=== PATIENT | male | born 1980 | race Caucasian/White ===

== ENCOUNTER 2018-02-23 21:20 | Emergency (ER) | payer MEDICAID, OTHER ==
[~2018-02-23] VITALS: Ht 188 cm; Wt 136.1 kg
[2018-02-23 22:22] LABS: Basophils # (auto) 0.1 uL; Basophils % (auto) 0.5 % (0.0-2.0); Eosinophils # (auto) 0.3 uL; Eosinophils % (auto) 2.8 % (0.0-7.0); Hematocrit 39.7 % (41.0-53.0); Hemoglobin 13.2 g/dL (13.5-17.5); Lymphocytes # (auto) 2.2 uL; Lymphocytes % (auto) 22.1 % (10.0-50.0); Mean Corpuscular Hemoglobin 32.3 pg (28.0-32.0); Mean Corpuscular Hgb Conc. 33.2 g/dL (32.0-36.0); Mean Corpuscular Volume 97.4 fL (80.0-100.0); Monocytes # (auto) 0.7 uL; Monocytes % (auto) 7.1 % (0.0-12.0); Neutrophils # (auto) 6.7 uL; Neutrophils % (auto) 67.5 % (37.0-80.0); Nucleated Red Blood Cells % 0.1 %; Platelet Count (auto) 346 10^3/uL (140-450); Red Blood Cells 4.07 10^6/uL (4.5-5.90); Red Cell Distribution Width 14.1 % (11.8-14.3)
[2018-02-23 22:27] LABS: INR 0.95 (0.9-1.15); Partial Thromboplastin Time 27.5 sec (22.64-33.71); Prothrombin Time 10.3 sec (9.37-12.3)
[2018-02-23 22:31] LABS: Albumin 3.5 g/dL (3.4-5.0); BUN/Creatinine Ratio 11.7; Bilirubin, Total 0.2 mg/dL (0.2-1.0); Calcium 8.5 mg/dL (8.5-10.1); Potassium 4.1 mmol/L (3.5-5.1); Total Protein 6.8 g/dL (6.4-8.2)
[2018-02-23] MEDS ORDERED: LORazepam 2MG/ML-1ML VIAL IV ONE (23:15)
[2018-02-23] MEDS ORDERED: LEVETIRACETAM 500 MG TAB PO ONE (23:15)
[2018-02-23 23:42] LABS: Urine Bacteria NONE SEEN /hpf (None Seen); Urine Blood Negative /uL (Negative); Urine Mucus FEW (None Seen); Urine WBC 1 /hpf (0 - 3)
[2018-02-23 23:52] LABS: Amphetamine Screen, Urine NEGATIVE (NEGATIVE); Barbiturate Scree,Urine NEGATIVE (NEGATIVE); Benzodiazephine Screen, Urine POSITIVE (NEGATIVE); Cannabinoid Screen, Urine POSITIVE (NEGATIVE); Cocaine Screen, Urine NEGATIVE (NEGATIVE); Opiate Scree,Urine NEGATIVE (NEGATIVE); Phencyclidine Screen, Urine NEGATIVE (NEGATIVE)
[2018-02-24] MEDS ORDERED: HYDROcodone-ACET 10/325MG TAB PO ONE (00:15)
[2018-02-24 02:25] VITALS: BP 115/74
== END 2018-02-24 03:56 | disposition home or self-care (01) ==
LOC: EDUNIT# 21:20 → ER 21:20
DX: G40.409 Other generalized epilepsy and epileptic syndromes, not intractable, without status epilepticus (principal); G92 Toxic encephalopathy; F43.10 Post-traumatic stress disorder, unspecified; F10.129 Alcohol abuse with intoxication, unspecified; F12.10 Cannabis abuse, uncomplicated; F11.10 Opioid abuse, uncomplicated; Y90.7 Blood alcohol level of 200-239 mg/100 ml
CPT/HCPCS: 36415; 70450; 80053; 80185; 80307; 80320; 81001; 82542; 85025; 85610; 85730; 96374; 99285; J2060

== ENCOUNTER 2019-12-01 10:39 | Emergency (ER) | payer MEDICAID ==
[~2019-12-01] VITALS: Ht 185.4 cm; Wt 99.8 kg
[2019-12-01] MEDS ORDERED: SODIUM CHLORIDE 0.9% 1,000 ML IVB ONE (10:51)
[2019-12-01] MEDS ORDERED: LORazepam 2MG/ML-1ML VIAL IV ONE ×2 (11:00→12:30)
[2019-12-01 11:10] LABS: Basophils # (auto) 0 uL; Basophils % (auto) 0.4 % (0.0-2.0); Eosinophils # (auto) 0.2 uL; Eosinophils % (auto) 1.8 % (0.0-7.0); Hematocrit 44.2 % (41.0-53.0); Hemoglobin 14.9 g/dL (13.5-17.5); Lymphocytes # (auto) 2.1 uL; Lymphocytes % (auto) 24.1 % (10.0-50.0); Mean Corpuscular Hemoglobin 31.9 pg (28.0-32.0); Mean Corpuscular Hgb Conc. 33.7 g/dL (32.0-36.0); Mean Corpuscular Volume 94.6 fL (80.0-100.0); Monocytes # (auto) 0.6 uL; Monocytes % (auto) 6.4 % (0.0-12.0); Neutrophils # (auto) 5.8 uL; Neutrophils % (auto) 67.3 % (37.0-80.0); Platelet Count (auto) 294 10^3/uL (140-450); Red Blood Cells 4.67 10^6/uL (4.5-5.90); Red Cell Distribution Width 13.8 % (11.8-14.3); White Blood Cell 8.6 10^3/uL (4.4-10.8)
[2019-12-01 11:28] LABS: Albumin 3.4 g/dL (3.4-5.0); Calcium 8.6 mg/dL (8.5-10.1); Potassium 3.3 mmol/L (3.5-5.1)
[2019-12-01 11:32] VITALS: BP 139/94
[2019-12-01 11:32] LABS: BUN/Creatinine Ratio 9.2; Bilirubin, Total 0.2 mg/dL (0.2-1.0); Total Protein 7.3 g/dL (6.4-8.2)
[2019-12-01] MEDS ORDERED: diphenhdrAMINE HCL 50 MG/1 ML VL IM ONE (12:15)
[2019-12-01] MEDS ORDERED: LORazepam 2MG/ML-1ML VIAL IM ONE (12:15)
[2019-12-01] MEDS ORDERED: HALOPERIDOL LACTATE 5 MG/ML INJ VIAL IM ONE (12:15)
[2019-12-01] MEDS ORDERED: diphenhdrAMINE HCL 50 MG/1 ML VL IV ONE (12:30)
[2019-12-01 13:55] LABS: Amphetamine Screen, Urine NEGATIVE (NEGATIVE); Barbiturate Scree,Urine NEGATIVE (NEGATIVE); Benzodiazephine Screen, Urine POSITIVE (NEGATIVE); Cannabinoid Screen, Urine POSITIVE (NEGATIVE); Cocaine Screen, Urine NEGATIVE (NEGATIVE)
[2019-12-01 14:05] LABS: Opiate Scree,Urine NEGATIVE (NEGATIVE); Phencyclidine Screen, Urine NEGATIVE (NEGATIVE)
== END 2019-12-02 03:10 | disposition home or self-care (01) ==
LOC: EDBD 10:39 → ER 10:39
DX: F31.9 Bipolar disorder, unspecified (principal); F10.129 Alcohol abuse with intoxication, unspecified; R45.851 Suicidal ideations; Y90.8 Blood alcohol level of 240 mg/100 ml or more
CPT/HCPCS: 36415; 80053; 80307; 80320; 85025; 93005; 96372; 96374; 96375; 99284; J1200; J1630; J2060

== ENCOUNTER 2020-02-22 18:35 | Inpatient (IN) | payer MEDICARE, MEDICAID ==
[~2020-02-22] VITALS: Ht 182.9 cm; Wt 102.6 kg
[2020-02-22 21:43] LABS: Basophils # (auto) 0 10 ^3/uL (0-0.2); Basophils % (auto) 0.3 % (0.0-2.0); Eosinophils # (auto) 0.2 10 ^3/uL (0-0.8); Eosinophils % (auto) 2.8 % (0.0-7.0); Hematocrit 41.8 % (41.0-53.0); Lymphocytes # (auto) 2.1 10 ^3/uL (0.4-5.4); Lymphocytes % (auto) 24.9 % (10.0-50.0); Mean Corpuscular Hemoglobin 32.3 pg (28.0-32.0); Mean Corpuscular Hgb Conc. 33.6 g/dL (32.0-36.0); Mean Corpuscular Volume 96.3 fL (80.0-100.0); Monocytes # (auto) 0.7 10 ^3/uL (0-1.3); Monocytes % (auto) 7.8 % (0.0-12.0); Neutrophils # (auto) 5.4 10 ^3/uL (1.6-8.6); Neutrophils % (auto) 64.2 % (37.0-80.0); Platelet Count (auto) 303 10^3/uL (140-450); Red Blood Cells 4.34 10^6/uL (4.5-5.90); Red Cell Distribution Width 13.4 % (11.8-14.3); White Blood Cell 8.4 10^3/uL (4.4-10.8)
[2020-02-22] MEDS ORDERED: AZITHROMYCIN 500MG/ 250ML 250 ML IV ONE (21:45)
[2020-02-22 22:00] LABS: Potassium 3.3 mmol/L (3.5-5.1)
[2020-02-22 22:07] LABS: Albumin 3.7 g/dL (3.4-5.0); Bilirubin, Total 1.2 mg/dL (0.2-1.0); Calcium 8.2 mg/dL (8.5-10.1); Total Protein 7.3 g/dL (6.4-8.2)
[2020-02-23] MEDS ORDERED: ALBUTEROL SULF 2.5 MG/0.5ML(0.5%) NEB SOLN NEB PRN (00:45)
[2020-02-23] MEDS ORDERED: TEMAZEPAM 15 MG CAP PO PRN (00:45)
[2020-02-23] MEDS ORDERED: ONDANSETRON HCL 4 MG/2 ML VIAL IV PRN (00:45)
[2020-02-23] MEDS ORDERED: ACETAMINOPHEN 325 MG TAB PO PRN (00:45)
[2020-02-23 02:02] VITALS: BP 114/73
--- NOTE | 2020-02-23 03:05 | NUR ---
MS admit from ER TAMIA PLATT admitted to tele/MS and oriented to primary RN, unit, room, bed, and unit policies regarding patient care and visiting hours. Patient placed on 4 l/min NC. Respiratory precautions in place. Patient weighed by bedscale and encouraged to call if they need something. All questions and concerns addressed, patient verbalized understanding.
[2020-02-23] MEDS ORDERED: LEVE100012 PO (03:26)
[2020-02-23] MEDS ORDERED: ATEN-60 PO (03:31)
[2020-02-23] MEDS ORDERED: GABA300C10 (03:31)
[2020-02-23] MEDS ORDERED: OLAN20TA30 (03:31)
[2020-02-23] MEDS ORDERED: LOSA-69 (03:31)
[2020-02-23] MEDS ORDERED: VENL37.56 (03:31)
[2020-02-23 03:33] VITALS: BP 116/72
[2020-02-23 04:00] VITALS: BP 116/72
--- NOTE | 2020-02-23 07:10 | NUR ---
Opening Shift Note Assumed care of patient, awake and alert. S/S of distress/SOB NO C/O pain RT MADE AWARE. Insructed on POC and to callfor assist PRN, will continue to monitor for changes Q1hr and PRN.
[2020-02-23] MEDS: GABAPENTIN 300 MG CAP PO SCH ×2 (09:05→20:58)
[2020-02-23] MEDS: AZITHROMYCIN 500MG/ 250ML 250 ML IV SCH (09:05)
[2020-02-23] MEDS: levETIRAcetam 500 MG TAB PO SCH ×2 (09:07→20:58)
[2020-02-23 09:23] VITALS: BP 132/81
[2020-02-23] MEDS ORDERED: ASCORBIC ACID 500 MG TAB PO SCH (10:00)
[2020-02-23] MEDS ORDERED: VENLAFAXINE HCL 37.5MG TABLET PO SCH (10:00)
[2020-02-23] MEDS ORDERED: ZINC SULFATE 220mg CAP or TAB PO SCH (10:00)
[2020-02-23] MEDS: ASCORBIC ACID 500 MG TAB PO SCH ×2 (10:30→20:59)
[2020-02-23] MEDS: LORazepam 2MG/ML-1ML VIAL IV PRN (11:15)
--- NOTE | 2020-02-23 11:17 | NUR ---
ATIVAN GIVEN ORDERED PT FEELS HES HAVING A PANIC ATTACK WILL REASSESS . URINE SAMPLE OBTAINED SENT TO LAB
[2020-02-23 11:34] LABS: Urine Bacteria NONE SEEN /hpf (None Seen); Urine Blood Negative /uL (Negative); Urine Mucus FEW (None Seen); Urine Specific Gravity 1.033 (1.001-1.035); Urine WBC 1 /hpf (0 - 3)
[2020-02-23 11:48] LABS: Alcohol, Urine < 3.0 mg/dL (0-5); Barbiturate Scree,Urine NEGATIVE (NEGATIVE); Benzodiazephine Screen, Urine NEGATIVE (NEGATIVE); Cannabinoid Screen, Urine POSITIVE (NEGATIVE); Cocaine Screen, Urine NEGATIVE (NEGATIVE); Opiate Scree,Urine NEGATIVE (NEGATIVE); Phencyclidine Screen, Urine NEGATIVE (NEGATIVE)
[2020-02-23 11:55] LABS: Amphetamine Screen, Urine NEGATIVE (NEGATIVE)
[2020-02-23 12:14] VITALS: BP 132/84
--- NOTE | 2020-02-23 12:16 | NUR ---
pt feels much better and less anxious pt on room air sat 98%
[2020-02-23] MEDS: SODIUM CHLORIDE 0.9% 1,000 ML IV SCH (12:30)
[2020-02-23] MEDS ORDERED: ENOXAPARIN SOD 40 MG/0.4 ML SYRINGE SC ONE (14:00)
--- NOTE | 2020-02-23 14:20 | NUR ---
MD at bedside Updated pt on POC, patient questions answered at this time. Per MD, patient agrees to have labs drawn at this time. Will proceed to call to notify laborer wharf.
[2020-02-23] MEDS: ALBUTEROL SULF HFA 90MCG INH 200DOSE IN SCH ×2 (14:35→22:08)
[2020-02-23 15:20] LABS: Basophils # (auto) 0 10 ^3/uL (0-0.2); Basophils % (auto) 0.2 % (0.0-2.0); Eosinophils # (auto) 0.3 10 ^3/uL (0-0.8); Eosinophils % (auto) 2.1 % (0.0-7.0); Hematocrit 38.8 % (41.0-53.0); Lymphocytes # (auto) 1.8 10 ^3/uL (0.4-5.4); Lymphocytes % (auto) 14.4 % (10.0-50.0); Mean Corpuscular Hemoglobin 32.2 pg (28.0-32.0); Mean Corpuscular Hgb Conc. 33.7 g/dL (32.0-36.0); Mean Corpuscular Volume 95.6 fL (80.0-100.0); Monocytes # (auto) 1.3 10 ^3/uL (0-1.3); Monocytes % (auto) 10.8 % (0.0-12.0); Neutrophils # (auto) 8.9 10 ^3/uL (1.6-8.6); Neutrophils % (auto) 72.5 % (37.0-80.0); Nucleated Red Blood Cells % 0.1 %; Platelet Count (auto) 268 10^3/uL (140-450); Red Blood Cells 4.05 10^6/uL (4.5-5.90); Red Cell Distribution Width 13.1 % (11.8-14.3); White Blood Cell 12.3 10^3/uL (4.4-10.8)
[2020-02-23 15:33] LABS: Albumin 3.4 g/dL (3.4-5.0); Calcium 8.5 mg/dL (8.5-10.1); Magnesium 1.5 mg/dL (1.6-2.6); Potassium 3.3 mmol/L (3.5-5.1)
[2020-02-23 15:37] LABS: BUN/Creatinine Ratio 15.2; Bilirubin, Total 1.9 mg/dL (0.2-1.0); CRP High Sensitivity 0.23 mg/dL (< 0.3); Total Protein 6.5 g/dL (6.4-8.2)
[2020-02-23] MEDS ORDERED: MAGNESIUM SULFATE 1GM/100ML 100 ML IV SCH (16:00)
[2020-02-23] MEDS ORDERED: POTASSIUM CHLORIDE 60 MEQ, LIDOCAINE 1% (LOCAL ANESTH.) 6 ML in SODIUM CHL 0.9% 500 ML IV ONE (16:00)
[2020-02-23] MEDS ORDERED: POTASSIUM CHL 20 Meq TABLET PO ONE (16:30)
[2020-02-23 16:51] VITALS: BP 132/74
--- NOTE | 2020-02-23 19:00 | NUR ---
Opening Shift Note Assumed care of patient, awake and alert. No S/S of distress/SOB or pain. Instructed on POC and to call for assist PRN, will continue to monitor for changes Q1hr and PRN.
--- NOTE | 2020-02-23 20:15 | NUR ---
2200 Medications. Patient requested his 2200 medications at this time for RN to limit his contact with the patient.
[2020-02-23] MEDS: MAGNESIUM OXIDE 400 MG TAB PO SCH (20:58)
[2020-02-23] MEDS: ZINC SULFATE 220mg CAP or TAB PO SCH (20:58)
--- NOTE | 2020-02-23 21:10 | NUR ---
COVID RESULTS FOLLOW UP: RN called lab to follow up on COVID-19 results. Per lab, they are still waiting for results at this time. computer service technician informed RN the results are usually faxed over in the morning. RN will continue to follow up.
[2020-02-23] MEDS ORDERED: MAGNESIUM OXIDE 400 MG TAB PO SCH (22:00)
[2020-02-24] MEDS: SODIUM CHLORIDE 0.9% 1,000 ML IV SCH (01:50)
[2020-02-24 06:14] VITALS: BP 125/82
[2020-02-24 06:56] LABS: Basophils # (auto) 0 10 ^3/uL (0-0.2); Basophils % (auto) 0.3 % (0.0-2.0); Eosinophils # (auto) 0.5 10 ^3/uL (0-0.8); Eosinophils % (auto) 3.2 % (0.0-7.0); Hemoglobin 12.7 g/dL (13.5-17.5); Lymphocytes # (auto) 1.9 10 ^3/uL (0.4-5.4); Lymphocytes % (auto) 13.3 % (10.0-50.0); Mean Corpuscular Hemoglobin 32.5 pg (28.0-32.0); Mean Corpuscular Hgb Conc. 33.4 g/dL (32.0-36.0); Mean Corpuscular Volume 97.3 fL (80.0-100.0); Monocytes % (auto) 6.8 % (0.0-12.0); Neutrophils # (auto) 10.9 10 ^3/uL (1.6-8.6); Neutrophils % (auto) 76.4 % (37.0-80.0); Platelet Count (auto) 237 10^3/uL (140-450); Red Blood Cells 3.91 10^6/uL (4.5-5.90); Red Cell Distribution Width 13.6 % (11.8-14.3); White Blood Cell 14.3 10^3/uL (4.4-10.8)
--- NOTE | 2020-02-24 07:30 | NUR ---
Opening Shift Note Assumed care of patient, awake and alert. No S/S of distress/SOB or pain. Bed in lowest and locked position with side rails up x2 and call light within reach. Instructed on POC and to call for assist PRN, will continue to monitor for changes Q1hr and PRN.
[2020-02-24 07:45] LABS: Potassium 4.2 mmol/L (3.5-5.1)
[2020-02-24 07:46] LABS: BUN/Creatinine Ratio 14.1
[2020-02-24 07:47] LABS: Albumin 3.2 g/dL (3.4-5.0); Bilirubin, Total 1.7 mg/dL (0.2-1.0); Calcium 8.3 mg/dL (8.5-10.1); Total Protein 6.4 g/dL (6.4-8.2)
[2020-02-24 08:00] VITALS: BP 122/77
[2020-02-24] MEDS: ALBUTEROL SULF HFA 90MCG INH 200DOSE IN SCH ×4 (08:22→23:00)
--- NOTE | 2020-02-24 08:22 | NUR ---
Respiratory note: BREATHING TX ADMINISTERED VIA MDI WITH SPACER, PT TOLERATED WELL, NO ADVERSE REACTIONS NOTED. HR 98, RR 18, SPO2 98% ON 3LPM NC. NO S/S OF RESPIRATORY DISTRESS NOTED. WILL RETURN FOR NEXT SCHEDULED TX.
[2020-02-24] MEDS: AZITHROMYCIN 500MG/ 250ML 250 ML IV SCH (09:16)
[2020-02-24 09:20] VITALS: BP 122/77
[2020-02-24] MEDS: ZINC SULFATE 220mg CAP or TAB PO SCH (09:23)
[2020-02-24] MEDS: levETIRAcetam 500 MG TAB PO SCH ×2 (09:24→21:21)
[2020-02-24] MEDS: GABAPENTIN 300 MG CAP PO SCH ×2 (09:24→21:21)
[2020-02-24] MEDS: MAGNESIUM OXIDE 400 MG TAB PO SCH ×2 (09:24→21:19)
[2020-02-24] MEDS: ENOXAPARIN SOD 40 MG/0.4 ML SYRINGE SC SCH (09:25)
[2020-02-24] MEDS: LORazepam 2MG/ML-1ML VIAL IV PRN (09:25)
[2020-02-24] MEDS: ASCORBIC ACID 500 MG TAB PO SCH (09:25)
--- NOTE | 2020-02-24 11:00 | NUR ---
SPOKE TO SPECIAL EVENTS PLANNER, PEDRITO, AND KAYLIN. PER PEDRITO AND KAYLIN, THE PATIENTS COVID-19 TEST IS NEGATIVE.
--- NOTE | 2020-02-24 11:17 | NUR ---
RECEIVED PATIENT FROM MARIAA HUBER AFTER NEGATIVE COVID19 RESULTS. PATIENT ORIENTED TO NEW ROOM 0284B AND PRIMARY RN ADEOLA ARTEAGA. PATIENT UDPATED ON POC FOR THE DAY AND ALL QUESTIONS ANSWERED. WILL CONTINUE TO MONITOR Q1H AND PRN.
--- NOTE | 2020-02-24 11:19 | NUR ---
REPORT GIVEN TO RNADEOLA.
[2020-02-24] MEDS ORDERED: IOHEXOL 350 MG/ML 100ML IJ ONE (11:38)
[2020-02-24 13:00] VITALS: BP 129/75
[2020-02-24 16:48] VITALS: BP 149/95
--- NOTE | 2020-02-24 19:30 | NUR ---
Opening Shift Note Assumed care of patient, awake and alert, ambulatory. No S/S of distress/SOB or pain. Bed in lowest and locked position with side rails up x2 and call light within reach. Instructed on POC and to call for assist PRN, will continue to monitor for changes Q1hr and PRN.
[2020-02-24 22:00] VITALS: BP 134/97
--- NOTE | 2020-02-24 23:05 | NUR ---
Respiratory note: PT PLACED ON CPAP. UNAVAILABLE FOR MED NEB ADMINISTRATION AT SCHEDULED TIME. PT PRESENTING NO RESPIRATORY DISTRESS AT THIS TIME. PT AWARE TO HAVE RT PAGED IF NEEDED, WILL CONTINUE TO MONITOR.
[2020-02-25 05:41] VITALS: BP 122/81
[2020-02-25] MEDS: ALBUTEROL SULF HFA 90MCG INH 200DOSE IN SCH (06:00)
[2020-02-25 08:00] VITALS: BP 126/84
[2020-02-25 09:00] VITALS: BP 126/84
[2020-02-25] MEDS: levETIRAcetam 500 MG TAB PO SCH (09:46)
[2020-02-25] MEDS: ENOXAPARIN SOD 40 MG/0.4 ML SYRINGE SC SCH (09:46)
[2020-02-25] MEDS: MAGNESIUM OXIDE 400 MG TAB PO SCH (09:46)
[2020-02-25] MEDS: GABAPENTIN 300 MG CAP PO SCH (09:47)
[2020-02-25] MEDS ORDERED: AZITHROMYCIN 250 MG TAB PO SCH (10:00)
[2020-02-25 11:34] VITALS: BP 126/84
--- NOTE | 2020-02-25 14:10 | NUR ---
assessment Patient is a 39 year old male who is alert and oriented. Prior to admission patient lived home with his and family and functioned with assistance. Per patient he will return home to his prior living arrangements post discharge and family will transport him home. Patient had no need for DME prior to admission. Patient is positive for Covid 19 and may require oxygen on discharge. Patients PCP is Dr Lucia. Patient has no safety concerns regarding returning home on discharge. I informed patient he has a right to speak to a social service manager regarding all care. I informed patient he has a right to participate in any and all discharge planning. Patient does not have a POA and advanced directive. I have offered patient information on POA and advanced directives. I informed the patient the advantages and benefits of having an Advanced Directive. Patient verbalized understanding and agreed to discharge plan. Addendum: 02/25/20 at 1412 by Bettye COX Amended: Links added.
== END 2020-02-25 14:00 | disposition home or self-care (01) | DRG 189 ==
LOC: ER 18:35 → OVERFLOW 18:36 → WEST WING 02-23 02:58
PROVIDERS: ADMIT Nurse Practitioner; ATTEND Internal Medicine
PROC: 5A09357 Assistance with Respiratory Ventilation, Less than 24 Consecutive Hours, Continuous Positive Airway Pressure (ICD-10-PCS; principal; 2020-02-24)
DX: J96.01 Acute respiratory failure with hypoxia (principal); F31.9 Bipolar disorder, unspecified; E66.9 Obesity, unspecified; E87.6 Hypokalemia; E83.42 Hypomagnesemia; F41.9 Anxiety disorder, unspecified; F17.210 Nicotine dependence, cigarettes, uncomplicated; I10 Essential (primary) hypertension; Z03.818 Encounter for observation for suspected exposure to other biological agents ruled out; Z68.30 Body mass index [BMI] 30.0-30.9, adult; Z88.0 Allergy status to penicillin
CPT/HCPCS: 36415; 36600; 71046; 71275; 80053; 80307; 81001; 82728; 82805; 82962; 83036; 83605; 83615; 83735; 84443; 84484; 85025; 85379; 85610; 85652; 86141; 86703; 87040; 87070; 87804; 87880; 93005; 94640; 94660; 96365; 96366; 96375; G0378; J2001

== ENCOUNTER 2020-02-25 23:15 | Emergency (ER) | payer MEDICARE, MEDICAID ==
[~2020-02-25] VITALS: Ht 188 cm; Wt 145.1 kg
[~2020-02-25 23:15] MED LIST: ATEN-60 PO; GABA300C10; LEVE100012 PO; LOSA-69; OLAN20TA30; VENL37.56
[2020-02-25] MEDS ORDERED: LORazepam 2MG/ML-1ML VIAL ONE (23:38)
[2020-02-25] MEDS ORDERED: LORazepam 2MG/ML-1ML VIAL IV ONE (23:45)
[2020-02-26 00:10] LABS: Urine Bacteria NONE SEEN /hpf (None Seen); Urine Blood Negative /uL (Negative); Urine Specific Gravity 1.005 (1.001-1.035); Urine WBC 1 /hpf (0 - 3)
[2020-02-26] MEDS ORDERED: HALOPERIDOL LACTATE 5 MG/ML INJ VIAL ONE (00:18)
[2020-02-26] MEDS ORDERED: diphenhdrAMINE HCL 50 MG/1 ML VL ONE (00:18)
[2020-02-26 00:24] LABS: Basophils # (auto) 0 10 ^3/uL (0-0.2); Basophils % (auto) 0.2 % (0.0-2.0); Eosinophils # (auto) 0.3 10 ^3/uL (0-0.8); Eosinophils % (auto) 3.6 % (0.0-7.0); Hematocrit 43.4 % (41.0-53.0); Hemoglobin 14.6 g/dL (13.5-17.5); Lymphocytes # (auto) 2.1 10 ^3/uL (0.4-5.4); Lymphocytes % (auto) 24.6 % (10.0-50.0); Mean Corpuscular Hemoglobin 32.6 pg (28.0-32.0); Mean Corpuscular Hgb Conc. 33.7 g/dL (32.0-36.0); Mean Corpuscular Volume 96.9 fL (80.0-100.0); Monocytes # (auto) 0.7 10 ^3/uL (0-1.3); Monocytes % (auto) 8.1 % (0.0-12.0); Neutrophils # (auto) 5.5 10 ^3/uL (1.6-8.6); Neutrophils % (auto) 63.5 % (37.0-80.0); Nucleated Red Blood Cells % 0.1 %; Platelet Count (auto) 273 10^3/uL (140-450); Red Blood Cells 4.47 10^6/uL (4.5-5.90); Red Cell Distribution Width 13.3 % (11.8-14.3); White Blood Cell 8.6 10^3/uL (4.4-10.8)
[2020-02-26 00:30] LABS: Amphetamine Screen, Urine NEGATIVE (NEGATIVE); Barbiturate Scree,Urine NEGATIVE (NEGATIVE); Benzodiazephine Screen, Urine NEGATIVE (NEGATIVE); Cannabinoid Screen, Urine POSITIVE (NEGATIVE); Cocaine Screen, Urine NEGATIVE (NEGATIVE); Opiate Scree,Urine NEGATIVE (NEGATIVE); Phencyclidine Screen, Urine NEGATIVE (NEGATIVE)
[2020-02-26] MEDS ORDERED: HALOPERIDOL LACTATE 5 MG/ML INJ VIAL IM ONE (00:30)
[2020-02-26] MEDS ORDERED: LORazepam 2MG/ML-1ML VIAL IV ONE (00:30)
[2020-02-26] MEDS ORDERED: diphenhdrAMINE HCL 50 MG/1 ML VL IV ONE (00:30)
[2020-02-26 00:40] LABS: Albumin 3.8 g/dL (3.4-5.0); Calcium 9.1 mg/dL (8.5-10.1); Potassium 3.6 mmol/L (3.5-5.1)
[2020-02-26 00:43] LABS: Bilirubin, Total 0.4 mg/dL (0.2-1.0); Total Protein 8.1 g/dL (6.4-8.2)
[2020-02-26 00:44] LABS: INR 0.98 (0.9-1.15); Partial Thromboplastin Time 30.2 sec (23.64-32.05)
[2020-02-26] MEDS ORDERED: SODIUM CHLORIDE 0.9% 1,000 ML IV ONE (01:15)
[2020-02-26] MEDS ORDERED: THIAMINE INJ 100 MG in SODIUM CHLORIDE 0.9% 1,000 ML IV ONE (01:15)
[2020-02-26] MEDS ORDERED: levETIRAcetam 500 MG/5ML INJ IV ONE (03:13)
[2020-02-26] MEDS ORDERED: THIAMINE 100mg/ml INJ (200mg/2ml VIAL) ONE (03:13)
[2020-02-26 05:30] VITALS: BP 102/63
== END 2020-02-26 06:25 | disposition home or self-care (01) ==
LOC: EDBD 23:15 → ER 23:15
DX: G40.909 Epilepsy, unspecified, not intractable, without status epilepticus (principal); F60.9 Personality disorder, unspecified; F10.129 Alcohol abuse with intoxication, unspecified; F17.210 Nicotine dependence, cigarettes, uncomplicated; I10 Essential (primary) hypertension; Y90.9 Presence of alcohol in blood, level not specified
CPT/HCPCS: 36415; 80053; 80307; 80320; 81001; 85025; 85610; 85730; 96365; 96368; 96372; 96375; 96376; 99285; J1200; J1630; J1953; J2060; J3411; J7030

== ENCOUNTER 2020-04-22 16:11 | Inpatient (IN) | payer MEDICARE, MEDICAID ==
[~2020-04-22] VITALS: Ht 182.9 cm; Wt 124.0 kg
[2020-04-22] MEDS ORDERED: LORazepam 2MG/ML-1ML VIAL ONE (16:25)
[2020-04-22] MEDS ORDERED: SODIUM CHLORIDE 0.9% 1,000 ML IV ONE ×3 (16:30→18:17)
[2020-04-22] MEDS ORDERED: LORazepam 2MG/ML-1ML VIAL IV ONE (16:30)
[2020-04-22 16:54] LABS: Basophils # (auto) 0 10 ^3/uL (0-0.2); Basophils % (auto) 0.3 % (0.0-2.0); Eosinophils # (auto) 0.1 10 ^3/uL (0-0.8); Eosinophils % (auto) 0.5 % (0.0-7.0); Hematocrit 39.2 % (41.0-53.0); Hemoglobin 13.2 g/dL (13.5-17.5); Lymphocytes # (auto) 1.5 10 ^3/uL (0.4-5.4); Lymphocytes % (auto) 13.7 % (10.0-50.0); Mean Corpuscular Hgb Conc. 33.7 g/dL (32.0-36.0); Monocytes # (auto) 1.1 10 ^3/uL (0-1.3); Monocytes % (auto) 10.7 % (0.0-12.0); Neutrophils % (auto) 74.8 % (37.0-80.0); Platelet Count (auto) 225 10^3/uL (140-450); White Blood Cell 10.7 10^3/uL (4.4-10.8)
[2020-04-22 16:54] LABS: Urine Amorphous Crystal FEW /hpf (None Seen); Urine Bacteria NONE SEEN /hpf (None Seen); Urine Blood Negative /uL (Negative); Urine Hyaline Cast FEW /lpf (0 - 2); Urine Specific Gravity 1.011 (1.001-1.035); Urine WBC 1 /hpf (0 - 3)
[2020-04-22 17:10] LABS: Albumin 3.3 g/dL (3.4-5.0); Anion Gap 15 (5-15); Blood Urea Nitrogen 15 mg/dL (7-18); Calcium 7.9 mg/dL (8.5-10.1); Carbon Dioxide 18 mmol/L (21-32); Chloride 109 mmol/L (98-107); Glucose 87 mg/dL (74-106); Magnesium 1.8 mg/dL (1.6-2.6); Salicylate < 1.7 mg/dL (2.8-20.0); Sodium 142 mmol/L (136-145)
[2020-04-22 17:12] LABS: Amphetamine Screen, Urine NEGATIVE (NEGATIVE); Barbiturate Scree,Urine NEGATIVE (NEGATIVE); Benzodiazephine Screen, Urine NEGATIVE (NEGATIVE); Cannabinoid Screen, Urine POSITIVE (NEGATIVE); Cocaine Screen, Urine NEGATIVE (NEGATIVE); Opiate Scree,Urine NEGATIVE (NEGATIVE); Phencyclidine Screen, Urine NEGATIVE (NEGATIVE)
[2020-04-22 17:14] LABS: Acetaminophen < 2.0 ug/mL (10-30)
[2020-04-22 17:15] LABS: Alanine Aminotransferase 26 U/L (16-61); Alkaline Phosphatase 96 U/L (45-117); Aspartate Aminotransferase 39 U/L (15-37); BUN/Creatinine Ratio 11.4; Bilirubin, Total 0.7 mg/dL (0.2-1.0); GFR African American 78 mL/min; GFR Non-African American 64 mL/min; Total Protein 6.6 g/dL (6.4-8.2)
[2020-04-22] MEDS ORDERED: THIAMINE 100mg/ml INJ (200mg/2ml VIAL) IV ONE ×2 (18:00→19:15)
[2020-04-22] MEDS ORDERED: SODIUM CHLORIDE 0.9% 2,000 ML IV ONE ×2 (18:00→18:30)
[2020-04-22] MEDS ORDERED: POTASSIUM CHL 20MEQ/100ML 100 ML IV ONE (18:00)
[2020-04-22] MEDS ORDERED: NOREPINEPHRINE 8 MG/250ML KIT 250 ML IV SCH (18:30)
[2020-04-22] MEDS ORDERED: ACETAMINOPHEN 500 MG TAB PO PRN (19:15)
[2020-04-22] MEDS ORDERED: MORPHINE SULF INJ 2 MG/ML SYRINGE 1ML IV PRN (19:15)
[2020-04-22] MEDS ORDERED: PROMETHAZINE HCL 25 MG/ML 1ML IV PRN (19:15)
[2020-04-22] MEDS ORDERED: LACTULOSE 20Gm/30ML SOLN PO PRN (19:15)
[2020-04-22] MEDS ORDERED: OLANZapine 5 MG TAB PO ONE (19:15)
[2020-04-22] MEDS ORDERED: NITROGLYCERIN 0.4 MG SL TAB SL PRN (19:15)
[2020-04-22] MEDS ORDERED: chlordiazePOXIDE HCL 25 MG CAP PO PRN (19:15)
[2020-04-22] MEDS ORDERED: LORazepam 2MG/ML-1ML VIAL IV PRN (19:15)
[2020-04-22] MEDS ORDERED: LORazepam 2MG/ML-1ML VIAL IM ONE (19:30)
[2020-04-22] MEDS: GABAPENTIN 300 MG CAP PO SCH (20:26)
[2020-04-22] MEDS: VENLAFAXINE HCL 37.5MG TABLET PO SCH (21:09)
[2020-04-22] MEDS: levETIRAcetam 500 MG TAB PO SCH (21:09)
[2020-04-22] MEDS ORDERED: POTASSIUM EFFERVESENT TAB 25 MEQ ONE (21:59)
[2020-04-22] MEDS ORDERED: POTASSIUM EFFERVESENT TAB 25 MEQ PO ONE (22:00)
[2020-04-22 22:54] VITALS: BP 127/86
[2020-04-23] VITALS (7 sets, daily range): BP systolic 102–153; BP diastolic 53–104
[2020-04-23 04:34] LABS: Basophils # (auto) 0 10 ^3/uL (0-0.2); Basophils % (auto) 0.2 % (0.0-2.0); Eosinophils # (auto) 0.1 10 ^3/uL (0-0.8); Eosinophils % (auto) 0.6 % (0.0-7.0); Hematocrit 37.2 % (41.0-53.0); Hemoglobin 12.3 g/dL (13.5-17.5); Lymphocytes # (auto) 1.1 10 ^3/uL (0.4-5.4); Mean Corpuscular Hemoglobin 33.1 pg (28.0-32.0); Mean Corpuscular Hgb Conc. 33.2 g/dL (32.0-36.0); Mean Corpuscular Volume 99.8 fL (80.0-100.0); Monocytes # (auto) 1.2 10 ^3/uL (0-1.3); Monocytes % (auto) 12.5 % (0.0-12.0); Neutrophils # (auto) 7.5 10 ^3/uL (1.6-8.6); Neutrophils % (auto) 75.7 % (37.0-80.0); Nucleated Red Blood Cells % 0.1 %; Platelet Count (auto) 176 10^3/uL (140-450); Red Blood Cells 3.73 10^6/uL (4.5-5.90); Red Cell Distribution Width 14.4 % (11.8-14.3); White Blood Cell 9.9 10^3/uL (4.4-10.8)
[2020-04-23 04:59] LABS: Calcium 7.1 mg/dL (8.5-10.1); Potassium 4.1 mmol/L (3.5-5.1)
[2020-04-23 05:01] LABS: BUN/Creatinine Ratio 11.1
[2020-04-23] MEDS: chlordiazePOXIDE HCL 5 MG CAP PO SCH ×4 (06:50→17:45)
[2020-04-23] MEDS ORDERED: MAGNESIUM SULFATE 1GM/100ML 100 ML IV ONE ×2 (10:54→11:00)
[2020-04-23] MEDS: THIAMINE 100mg/ml INJ (200mg/2ml VIAL) IV SCH (11:01)
[2020-04-23] MEDS: levETIRAcetam 500 MG TAB PO SCH ×2 (11:01→21:26)
[2020-04-23] MEDS: GABAPENTIN 300 MG CAP PO SCH ×2 (11:01→21:27)
[2020-04-23] MEDS: OLANZapine 5 MG TAB PO SCH (11:02)
[2020-04-23] MEDS: ENOXAPARIN SOD 40 MG/0.4 ML SYRINGE SC SCH (11:02)
[2020-04-23] MEDS: VENLAFAXINE HCL 37.5MG TABLET PO SCH ×2 (11:15→21:26)
[2020-04-23] MEDS ORDERED: levoFLOXacin 500MG 100 ML IV ONE (12:45)
[2020-04-23] MEDS: SODIUM CHLORIDE 0.9% 1,000 ML IV SCH (13:32)
[2020-04-23] MEDS: traMADol HCL 50 MG TAB PO PRN ×2 (13:42→21:26)
[2020-04-23] MEDS ORDERED: LABETALOL HCL 5 MG/ML 4ML SYRINGE IV PRN (18:15)
[2020-04-24] MEDS: SODIUM CHLORIDE 0.9% 1,000 ML IV SCH ×2 (03:35→15:25)
[2020-04-24 05:00] VITALS: BP 150/88
[2020-04-24] MEDS: chlordiazePOXIDE HCL 5 MG CAP PO SCH ×5 (05:22→23:12)
[2020-04-24 08:32] VITALS: BP 146/103
[2020-04-24] MEDS: GABAPENTIN 300 MG CAP PO SCH ×2 (10:09→23:11)
[2020-04-24] MEDS: VENLAFAXINE HCL 37.5MG TABLET PO SCH ×2 (10:09→23:10)
[2020-04-24] MEDS: OLANZapine 5 MG TAB PO SCH (10:09)
[2020-04-24] MEDS: ENOXAPARIN SOD 40 MG/0.4 ML SYRINGE SC SCH (10:09)
[2020-04-24] MEDS: METOPROLOL TARTRATE 25 MG TAB PO SCH ×2 (10:09→23:11)
[2020-04-24] MEDS: levoFLOXacin 500MG 100 ML IV SCH (10:10)
[2020-04-24] MEDS: levETIRAcetam 500 MG TAB PO SCH ×2 (10:10→23:10)
[2020-04-24] MEDS ORDERED: IOHEXOL 350 MG/ML 100ML IJ ONE ×2 (10:25→12:18)
[2020-04-24] MEDS: THIAMINE 100mg/ml INJ (200mg/2ml VIAL) IV SCH (10:28)
[2020-04-24 11:37] LABS: Albumin 2.7 g/dL (3.4-5.0); Potassium 3.5 mmol/L (3.5-5.1)
[2020-04-24 11:42] LABS: BUN/Creatinine Ratio 11.4; Bilirubin, Total 0.9 mg/dL (0.2-1.0); Total Protein 6.1 g/dL (6.4-8.2)
[2020-04-24 13:00] VITALS: BP 158/109
[2020-04-24 17:11] VITALS: BP 160/109
[2020-04-24] MEDS: traMADol HCL 50 MG TAB PO PRN (20:58)
[2020-04-24 22:00] VITALS: BP 152/122
[2020-04-25 05:00] VITALS: BP 150/113
[2020-04-25] MEDS: chlordiazePOXIDE HCL 5 MG CAP PO SCH ×3 (05:49→16:54)
[2020-04-25] MEDS: SODIUM CHLORIDE 0.9% 1,000 ML IV SCH ×2 (05:50→16:58)
[2020-04-25 09:00] VITALS: BP 160/126
[2020-04-25] MEDS: levoFLOXacin 500MG 100 ML IV SCH (09:38)
[2020-04-25] MEDS: ENOXAPARIN SOD 40 MG/0.4 ML SYRINGE SC SCH (09:39)
[2020-04-25] MEDS: OLANZapine 5 MG TAB PO SCH (09:39)
[2020-04-25] MEDS: THIAMINE 100mg/ml INJ (200mg/2ml VIAL) IV SCH (09:39)
[2020-04-25] MEDS: GABAPENTIN 300 MG CAP PO SCH ×2 (09:40→21:47)
[2020-04-25] MEDS: levETIRAcetam 500 MG TAB PO SCH ×2 (09:40→21:47)
[2020-04-25] MEDS: VENLAFAXINE HCL 37.5MG TABLET PO SCH ×2 (09:40→21:47)
[2020-04-25] MEDS: METOPROLOL TARTRATE 25 MG TAB PO SCH ×2 (09:41→21:47)
[2020-04-25 13:00] VITALS: BP 143/12
[2020-04-25 17:00] VITALS: BP 160/118
[2020-04-25] MEDS ORDERED: HYDROcodone-ACET 7.5/325MG TAB PO PRN (19:00)
[2020-04-25 22:00] VITALS: BP 141/92
[2020-04-26] MEDS: chlordiazePOXIDE HCL 5 MG CAP PO SCH ×3 (00:41→11:31)
[2020-04-26 03:24] VITALS: BP 143/95
[2020-04-26 05:41] VITALS: BP 130/87
[2020-04-26 08:00] VITALS: BP 112/93
[2020-04-26] MEDS: THIAMINE 100mg/ml INJ (200mg/2ml VIAL) IV SCH (10:53)
[2020-04-26] MEDS: levoFLOXacin 500MG 100 ML IV SCH (10:53)
[2020-04-26] MEDS: levETIRAcetam 500 MG TAB PO SCH (10:54)
[2020-04-26] MEDS: VENLAFAXINE HCL 37.5MG TABLET PO SCH (10:54)
[2020-04-26] MEDS: GABAPENTIN 300 MG CAP PO SCH (10:55)
[2020-04-26] MEDS: OLANZapine 5 MG TAB PO SCH (10:55)
[2020-04-26] MEDS: METOPROLOL TARTRATE 25 MG TAB PO SCH (10:55)
[2020-04-26] MEDS: ENOXAPARIN SOD 40 MG/0.4 ML SYRINGE SC SCH (10:56)
[2020-04-26 14:36] VITALS: BP 112/93
[2020-04-26 16:22] VITALS: BP 107/65
== END 2020-04-26 17:45 | disposition home or self-care (01) | DRG 100 ==
LOC: ER 16:11 → EDBD 16:11 → TELE 16:12 → DOU IN ICU 21:16 → TELE-CENTR 04-23 16:57
PROVIDERS: ADMIT Internal Medicine; ATTEND Family Medicine
PROC: 02HV33Z Insertion of Infusion Device into Superior Vena Cava, Percutaneous Approach (ICD-10-PCS; principal; 2020-04-22)
DX: G40.409 Other generalized epilepsy and epileptic syndromes, not intractable, without status epilepticus (principal); J69.0 Pneumonitis due to inhalation of food and vomit; E86.0 Dehydration; E87.6 Hypokalemia; F10.129 Alcohol abuse with intoxication, unspecified; F12.90 Cannabis use, unspecified, uncomplicated; I10 Essential (primary) hypertension; F41.9 Anxiety disorder, unspecified; E66.9 Obesity, unspecified; F17.210 Nicotine dependence, cigarettes, uncomplicated; I95.9 Hypotension, unspecified; F43.10 Post-traumatic stress disorder, unspecified; G47.30 Sleep apnea, unspecified; F31.9 Bipolar disorder, unspecified; F29 Unspecified psychosis not due to a substance or known physiological condition; Z81.8 Family history of other mental and behavioral disorders; Z82.49 Family history of ischemic heart disease and other diseases of the circulatory system; Z88.0 Allergy status to penicillin; Z79.899 Other long term (current) drug therapy; S82.891A Other fracture of right lower leg, initial encounter for closed fracture; N52.9 Male erectile dysfunction, unspecified; Z68.36 Body mass index [BMI] 36.0-36.9, adult
CPT/HCPCS: 36415; 36569; 36600; 70450; 71045; 71046; 71275; 73030; 73610; 73700; 80048; 80053; 80307; 80320; 80329; 81001; 82805; 82962; 83735; 83880; 84484; 85025; 85379; 85652; 86141; 87081; 99291; G0378; J1956; J3480; J3490

== ENCOUNTER 2020-08-13 07:40 | Inpatient (IN) | payer MEDICARE, MEDICAID ==
[~2020-08-13] VITALS: Ht 182.9 cm; Wt 132.5 kg
[~2020-08-13 07:40] MED LIST changes: +VENL37.511; -VENL37.56
[2020-08-13 08:51] LABS: Hematocrit 46.5 % (41.0-53.0); Hemoglobin 15.9 g/dL (13.5-17.5); Mean Corpuscular Hemoglobin 32.8 pg (28.0-32.0); Mean Corpuscular Hgb Conc. 34.1 g/dL (32.0-36.0); Mean Corpuscular Volume 96.1 fL (80.0-100.0); Platelet Count (auto) 242 10^3/uL (140-450); Red Blood Cells 4.84 10^6/uL (4.5-5.90)
[2020-08-13 08:55] LABS: White Blood Cell 41.7 10^3/uL (4.4-10.8)
[2020-08-13 08:57] LABS: Band Neutrophils % (manual) 0; Basophils % (manual) 0 (0.0-2.0); Blast Cells 0; Eosinophils % (manual) 0 (0-7); Metamyelocytes % 0; Myelocytes % 0; Promyelocytes % 0; Reactive Lymphocytes 0
[2020-08-13 09:16] LABS: Lymphocytes % (manual) 1 (10.0-50.0); Monocytes % (manual) 2 (0-12)
[2020-08-13] MEDS ORDERED: SODIUM CHLORIDE 0.9% 1,000 ML IV ONE ×3 (09:43→17:00)
[2020-08-13] MEDS ORDERED: MORPHINE SULFATE 4 MG/ML SYR/VIAL IV ONE ×2 (09:45→15:45)
[2020-08-13] MEDS ORDERED: PROCHLORPERAZINE EDISYLATE 5 MG/ML 2ML VIAL IV ONE (09:45)
[2020-08-13] MEDS ORDERED: levoFLOXacin 750MG 150 ML IV ONE (10:00)
[2020-08-13] MEDS ORDERED: metroNIDAZOLE 500MG/100ML 100 ML IV ONE (10:00)
[2020-08-13 10:05] LABS: Anion Gap 11 (5-15); Blood Urea Nitrogen 25 mg/dL (7-18); Carbon Dioxide 19 mmol/L (21-32); Chloride 103 mmol/L (98-107); Glucose 107 mg/dL (74-106); Potassium 4.9 mmol/L (3.5-5.1); Sodium 133 mmol/L (136-145)
[2020-08-13 10:06] LABS: Alanine Aminotransferase 114 U/L (16-61); Albumin 3.1 g/dL (3.4-5.0); Alkaline Phosphatase 136 U/L (45-117); Aspartate Aminotransferase 171 U/L (15-37); BUN/Creatinine Ratio 13.4; Bilirubin, Total 3.1 mg/dL (0.2-1.0); Calcium 7.9 mg/dL (8.5-10.1); GFR African American 52 mL/min; GFR Non-African American 43 mL/min; Lipase 1651 U/L (73-393); Magnesium 1.3 mg/dL (1.6-2.6); Total Protein 7.4 g/dL (6.4-8.2)
[2020-08-13 10:07] LABS: Amylase 123 U/L (25-115)
[2020-08-13] MEDS ORDERED: ONDANSETRON HCL 4 MG/2 ML VIAL IV ONE (15:45)
[2020-08-13] MEDS ORDERED: levoFLOXacin 500MG 100 ML IV ONE (16:00)
[2020-08-13] MEDS ORDERED: NITROGLYCERIN 0.4 MG SL TAB SL PRN (16:00)
[2020-08-13] MEDS: SODIUM CHLORIDE 0.9% 1,000 ML IV SCH ×2 (16:20→22:29)
[2020-08-13 16:45] LABS: Urine Bacteria NONE SEEN /hpf (None Seen); Urine Blood Negative /uL (Negative); Urine Hyaline Cast MANY /lpf (0 - 2); Urine Mucus FEW (None Seen); Urine Specific Gravity 1.038 (1.001-1.035); Urine WBC 2 /hpf (0 - 3)
[2020-08-13] MEDS ORDERED: MORPHINE SULF INJ 2 MG/ML SYRINGE 1ML IV PRN (17:00)
[2020-08-13] MEDS ORDERED: THIAMINE 100mg/ml INJ (200mg/2ml VIAL) IV ONE (17:00)
[2020-08-13] MEDS: FAMOTIDINE (10MG/ML) 2ML VL IV SCH (18:17)
[2020-08-13] MEDS: LORazepam 2MG/ML-1ML VIAL IV PRN (18:18)
[2020-08-13] MEDS ORDERED: MAGNESIUM SULFATE 1GM/100ML 100 ML IV ONE (19:45)
[2020-08-13 20:06] VITALS: BP 119/73
[2020-08-13] MEDS: MORPHINE SULF INJ 2 MG/ML SYRINGE 1ML IV PRN (20:48)
[2020-08-13] MEDS: metroNIDAZOLE 500MG/100ML 100 ML IV SCH (21:48)
[2020-08-13 22:00] VITALS: BP 119/73
[2020-08-13] MEDS ORDERED: FAMOTIDINE (10MG/ML) 2ML VL IV SCH (22:00)
[2020-08-14] VITALS (7 sets, daily range): BP systolic 112–138; BP diastolic 62–96
[2020-08-14] MEDS ORDERED: OMEP20TA PO (00:15)
[2020-08-14] MEDS ORDERED: MELO1TAB56 PO (00:15)
[2020-08-14] MEDS ORDERED: OLAN1TAB19 PO (00:15)
[2020-08-14] MEDS ORDERED: HYDR-3682 PO (00:15)
[2020-08-14] MEDS ORDERED: DULO60CA PO (00:15)
[2020-08-14] MEDS ORDERED: FOLI1TAB6 PO (00:15)
[2020-08-14] MEDS: SODIUM CHLORIDE 0.9% 1,000 ML IV SCH ×3 (05:11→16:06)
[2020-08-14] MEDS: MORPHINE SULF INJ 2 MG/ML SYRINGE 1ML IV PRN ×4 (05:11→19:54)
[2020-08-14] MEDS: FAMOTIDINE (10MG/ML) 2ML VL IV SCH ×2 (05:41→16:07)
[2020-08-14] MEDS: metroNIDAZOLE 500MG/100ML 100 ML IV SCH ×3 (05:42→22:06)
[2020-08-14 06:20] LABS: Hematocrit 37.1 % (41.0-53.0); Hemoglobin 12.2 g/dL (13.5-17.5); Mean Corpuscular Hgb Conc. 32.9 g/dL (32.0-36.0); Mean Corpuscular Volume 97.3 fL (80.0-100.0); Platelet Count (auto) 139 10^3/uL (140-450); Red Blood Cells 3.81 10^6/uL (4.5-5.90); Red Cell Distribution Width 13.7 % (11.8-14.3); White Blood Cell 27.4 10^3/uL (4.4-10.8)
[2020-08-14 06:23] LABS: Basophils % (manual) 0 (0.0-2.0); Blast Cells 0; Metamyelocytes % 0; Myelocytes % 0; Promyelocytes % 0; Reactive Lymphocytes 0
[2020-08-14 06:50] LABS: Potassium 3.8 mmol/L (3.5-5.1)
[2020-08-14 07:13] LABS: Cholesterol 86 mg/dL (< 200); HDL Cholesterol 16 mg/dL (40-59); LDL Cholesterol 39 mg/dL (< 100); Triglycerides 147 mg/dL (< 150)
[2020-08-14 07:18] LABS: Albumin 2.3 g/dL (3.4-5.0); BUN/Creatinine Ratio 16.8; Bilirubin, Total 1.9 mg/dL (0.2-1.0); Calcium 7.5 mg/dL (8.5-10.1); Total Protein 5.7 g/dL (6.4-8.2)
[2020-08-14 07:56] LABS: Band Neutrophils % (manual) 6; Eosinophils % (manual) 1 (0-7); Lymphocytes % (manual) 4 (10.0-50.0); Monocytes % (manual) 3 (0-12)
[2020-08-14] MEDS: levoFLOXacin 500MG 100 ML IV SCH (08:59)
[2020-08-14] MEDS: THIAMINE 100mg/ml INJ (200mg/2ml VIAL) IV SCH (08:59)
[2020-08-14] MEDS ORDERED: levETIRAcetam 500 MG TAB PO ONE (12:15)
[2020-08-14] MEDS ORDERED: FOLIC ACID 1 MG TAB PO ONE (12:15)
[2020-08-14] MEDS ORDERED: CALCIUM CHL 100MG/ML 1,000 MG in D5W 5% 100 ML IV ONE (12:15)
[2020-08-14] MEDS ORDERED: DULoxetine HCL 30 MG CAP PO ONE (12:30)
[2020-08-14] MEDS: MAGNESIUM SULFATE 1GM/100ML 100 ML IV SCH ×3 (13:14→17:50)
[2020-08-14] MEDS: hydrOXYzine 25 MG TAB or CAP PO SCH ×2 (14:15→22:07)
[2020-08-14] MEDS: PROMETHAZINE HCL 25 MG/ML 1ML IV PRN (19:54)
[2020-08-14] MEDS: GABAPENTIN 300 MG CAP PO SCH (22:06)
[2020-08-14] MEDS: levETIRAcetam 500 MG TAB PO SCH (22:06)
[2020-08-14] MEDS ORDERED: ATENOLOL 50 MG TAB PO ONE (22:30)
[2020-08-15] MEDS: MORPHINE SULF INJ 2 MG/ML SYRINGE 1ML IV PRN ×4 (00:29→13:24)
[2020-08-15] MEDS: SODIUM CHLORIDE 0.9% 1,000 ML IV SCH ×4 (03:00→16:01)
[2020-08-15 05:00] VITALS: BP 122/84
[2020-08-15] MEDS: FAMOTIDINE (10MG/ML) 2ML VL IV SCH ×2 (05:02→16:01)
[2020-08-15 05:32] LABS: Hematocrit 34.9 % (41.0-53.0); Hemoglobin 11.7 g/dL (13.5-17.5); Mean Corpuscular Hemoglobin 32.7 pg (28.0-32.0); Mean Corpuscular Hgb Conc. 33.6 g/dL (32.0-36.0); Mean Corpuscular Volume 97.5 fL (80.0-100.0); Platelet Count (auto) 129 10^3/uL (140-450); Red Blood Cells 3.58 10^6/uL (4.5-5.90); Red Cell Distribution Width 14.2 % (11.8-14.3); White Blood Cell 26.8 10^3/uL (4.4-10.8)
[2020-08-15 05:38] LABS: Band Neutrophils % (manual) 0; Basophils % (manual) 0 (0.0-2.0); Blast Cells 0; Metamyelocytes % 0; Myelocytes % 0; Promyelocytes % 0; Reactive Lymphocytes 0
[2020-08-15 05:49] LABS: Calcium 8.4 mg/dL (8.5-10.1); Potassium 3.9 mmol/L (3.5-5.1)
[2020-08-15 05:53] LABS: BUN/Creatinine Ratio 14.6
[2020-08-15 06:01] LABS: Eosinophils % (manual) 2 (0-7); Lymphocytes % (manual) 4 (10.0-50.0); Monocytes % (manual) 5 (0-12)
[2020-08-15] MEDS: metroNIDAZOLE 500MG/100ML 100 ML IV SCH ×3 (06:30→21:57)
[2020-08-15] MEDS: hydrOXYzine 25 MG TAB or CAP PO SCH ×3 (06:30→21:58)
[2020-08-15 06:44] LABS: Amphetamine Screen, Urine NEGATIVE (NEGATIVE); Barbiturate Scree,Urine NEGATIVE (NEGATIVE); Benzodiazephine Screen, Urine NEGATIVE (NEGATIVE); Cannabinoid Screen, Urine POSITIVE (NEGATIVE); Cocaine Screen, Urine NEGATIVE (NEGATIVE); Opiate Scree,Urine POSITIVE (NEGATIVE); Phencyclidine Screen, Urine NEGATIVE (NEGATIVE)
[2020-08-15 08:53] VITALS: BP 128/78
[2020-08-15] MEDS: DULoxetine HCL 30 MG CAP PO SCH (09:13)
[2020-08-15] MEDS: levoFLOXacin 500MG 100 ML IV SCH (09:13)
[2020-08-15] MEDS: THIAMINE 100mg/ml INJ (200mg/2ml VIAL) IV SCH (09:13)
[2020-08-15] MEDS: levETIRAcetam 500 MG TAB PO SCH ×2 (09:14→21:57)
[2020-08-15] MEDS: GABAPENTIN 300 MG CAP PO SCH ×2 (09:14→21:58)
[2020-08-15] MEDS: SILVER SULFADIAZINE 1 % TOPICAL CREAM 50GM TOP SCH (09:15)
[2020-08-15] MEDS: ATENOLOL 50 MG TAB PO SCH (09:15)
[2020-08-15] MEDS: LOSARTAN POTASSIUM 50 MG TAB PO SCH (09:16)
[2020-08-15 12:52] VITALS: BP 134/79
[2020-08-15] MEDS ORDERED: OLANZapine 5 MG TAB PO ONE (13:00)
[2020-08-15] MEDS ORDERED: VANCOMYCIN PER PHARMACY 0 MG IV SCH (13:15)
[2020-08-15] MEDS ORDERED: VANCOMYCIN 1GM/250ML 250 ML IV ONE (14:00)
[2020-08-15 16:50] VITALS: BP 121/79
[2020-08-15] MEDS: MAGNESIUM SULFATE 1GM/100ML 100 ML IV SCH ×2 (20:05→23:03)
[2020-08-15] MEDS ORDERED: MAGNESIUM SULFATE 1GM/100ML 100 ML IV ONE (21:22)
[2020-08-15 22:00] VITALS: BP 123/80
[2020-08-15] MEDS: LORazepam 2MG/ML-1ML VIAL IV PRN (22:35)
[2020-08-16] MEDS: VANCOMYCIN 1GM/250ML 250 ML IV SCH ×5 (00:27→23:47)
[2020-08-16] MEDS: SODIUM CHLORIDE 0.9% 1,000 ML IV SCH ×5 (03:49→21:39)
[2020-08-16 05:00] VITALS: BP 127/60
[2020-08-16] MEDS: FAMOTIDINE (10MG/ML) 2ML VL IV SCH ×2 (05:20→17:02)
[2020-08-16] MEDS: hydrOXYzine 25 MG TAB or CAP PO SCH ×3 (06:00→21:38)
[2020-08-16] MEDS: metroNIDAZOLE 500MG/100ML 100 ML IV SCH ×3 (06:00→21:38)
[2020-08-16 08:13] LABS: Basophils # (auto) 0 10 ^3/uL (0-0.2); Basophils % (auto) 0.3 % (0.0-2.0); Eosinophils # (auto) 0.4 10 ^3/uL (0-0.8); Eosinophils % (auto) 2.3 % (0.0-7.0); Hematocrit 32.1 % (41.0-53.0); Hemoglobin 10.9 g/dL (13.5-17.5); Lymphocytes # (auto) 1.4 10 ^3/uL (0.4-5.4); Lymphocytes % (auto) 8.9 % (10.0-50.0); Mean Corpuscular Hemoglobin 32.7 pg (28.0-32.0); Mean Corpuscular Hgb Conc. 33.8 g/dL (32.0-36.0); Mean Corpuscular Volume 96.7 fL (80.0-100.0); Monocytes # (auto) 1.7 10 ^3/uL (0-1.3); Monocytes % (auto) 10.6 % (0.0-12.0); Neutrophils # (auto) 12.2 10 ^3/uL (1.6-8.6); Neutrophils % (auto) 77.9 % (37.0-80.0); Platelet Count (auto) 153 10^3/uL (140-450); Red Blood Cells 3.32 10^6/uL (4.5-5.90); Red Cell Distribution Width 13.9 % (11.8-14.3); White Blood Cell 15.7 10^3/uL (4.4-10.8)
[2020-08-16 08:27] LABS: Potassium 3.3 mmol/L (3.5-5.1)
[2020-08-16 08:33] LABS: BUN/Creatinine Ratio 13.8
[2020-08-16] MEDS: LOSARTAN POTASSIUM 50 MG TAB PO SCH (10:16)
[2020-08-16] MEDS: levoFLOXacin 500MG 100 ML IV SCH (10:16)
[2020-08-16] MEDS: DULoxetine HCL 30 MG CAP PO SCH (10:16)
[2020-08-16] MEDS: GABAPENTIN 300 MG CAP PO SCH ×2 (10:17→21:38)
[2020-08-16] MEDS: SILVER SULFADIAZINE 1 % TOPICAL CREAM 50GM TOP SCH (10:17)
[2020-08-16] MEDS: levETIRAcetam 500 MG TAB PO SCH ×2 (10:17→21:38)
[2020-08-16] MEDS: ATENOLOL 50 MG TAB PO SCH (10:17)
[2020-08-16] MEDS: FOLIC ACID 1 MG, MULTIPLE VITAMIN 10 ML, MAGNESIUM SULF SDV 50% 8 MEQ, THIAMINE INJ 100... INJ SCH ×5 (12:30)
[2020-08-16 13:00] VITALS: BP 133/90
[2020-08-16 17:03] VITALS: BP 152/100
[2020-08-16] MEDS: OLANZapine 5 MG TAB PO SCH (21:47)
[2020-08-16 21:48] VITALS: BP 148/98
[2020-08-16] MEDS: MORPHINE SULF INJ 2 MG/ML SYRINGE 1ML IV PRN (22:06)
[2020-08-17] MEDS: MORPHINE SULF INJ 2 MG/ML SYRINGE 1ML IV PRN ×5 (03:45→21:47)
[2020-08-17 04:30] VITALS: BP 137/97
[2020-08-17] MEDS: hydrOXYzine 25 MG TAB or CAP PO SCH ×3 (05:27→21:47)
[2020-08-17] MEDS: metroNIDAZOLE 500MG/100ML 100 ML IV SCH ×3 (05:27→21:47)
[2020-08-17] MEDS: SODIUM CHLORIDE 0.9% 1,000 ML IV SCH ×3 (05:28→19:49)
[2020-08-17 06:37] LABS: Basophils # (auto) 0 10 ^3/uL (0-0.2); Basophils % (auto) 0.3 % (0.0-2.0); Eosinophils # (auto) 0.3 10 ^3/uL (0-0.8); Eosinophils % (auto) 2.6 % (0.0-7.0); Hematocrit 31.1 % (41.0-53.0); Hemoglobin 10.9 g/dL (13.5-17.5); Lymphocytes # (auto) 1.6 10 ^3/uL (0.4-5.4); Lymphocytes % (auto) 12.1 % (10.0-50.0); Mean Corpuscular Hemoglobin 33.3 pg (28.0-32.0); Mean Corpuscular Volume 95.3 fL (80.0-100.0); Monocytes # (auto) 1.8 10 ^3/uL (0-1.3); Monocytes % (auto) 13.8 % (0.0-12.0); Neutrophils # (auto) 9.2 10 ^3/uL (1.6-8.6); Neutrophils % (auto) 71.2 % (37.0-80.0); Platelet Count (auto) 163 10^3/uL (140-450); Red Blood Cells 3.26 10^6/uL (4.5-5.90); Red Cell Distribution Width 13.8 % (11.8-14.3)
[2020-08-17 06:54] LABS: Potassium 3.2 mmol/L (3.5-5.1)
[2020-08-17] MEDS: VANCOMYCIN 1GM/250ML 250 ML IV SCH ×3 (07:44→23:35)
[2020-08-17 08:35] VITALS: BP 156/89
[2020-08-17] MEDS: OLANZapine 5 MG TAB PO SCH (09:21)
[2020-08-17] MEDS: DULoxetine HCL 30 MG CAP PO SCH (09:21)
[2020-08-17] MEDS: GABAPENTIN 300 MG CAP PO SCH ×2 (09:22→21:47)
[2020-08-17] MEDS: ATENOLOL 50 MG TAB PO SCH (09:22)
[2020-08-17] MEDS: levETIRAcetam 500 MG TAB PO SCH ×2 (09:23→21:47)
[2020-08-17] MEDS: LOSARTAN POTASSIUM 50 MG TAB PO SCH (09:23)
[2020-08-17] MEDS: levoFLOXacin 500MG 100 ML IV SCH (09:25)
[2020-08-17] MEDS: FAMOTIDINE (10MG/ML) 2ML VL IV SCH ×2 (09:25→21:47)
[2020-08-17] MEDS: SILVER SULFADIAZINE 1 % TOPICAL CREAM 50GM TOP SCH (09:42)
[2020-08-17] MEDS: POTASSIUM CHL 20 Meq TABLET PO SCH (10:37)
[2020-08-17 12:21] VITALS: BP 156/93
[2020-08-17] MEDS: FOLIC ACID 1 MG, MULTIPLE VITAMIN 10 ML, MAGNESIUM SULF SDV 50% 8 MEQ, THIAMINE INJ 100... INJ SCH ×5 (12:29)
[2020-08-17 16:26] VITALS: BP 153/82
[2020-08-17 20:00] VITALS: BP 136/88
[2020-08-17 22:00] VITALS: BP 136/88
[2020-08-18] MEDS: MORPHINE SULF INJ 2 MG/ML SYRINGE 1ML IV PRN ×5 (01:44→20:12)
[2020-08-18] MEDS: SODIUM CHLORIDE 0.9% 1,000 ML IV SCH ×4 (02:47→22:29)
[2020-08-18] MEDS: metroNIDAZOLE 500MG/100ML 100 ML IV SCH ×3 (05:59→21:24)
[2020-08-18] MEDS: hydrOXYzine 25 MG TAB or CAP PO SCH ×3 (06:00→21:25)
[2020-08-18 06:14] VITALS: BP 129/84
[2020-08-18] MEDS: LORazepam 2MG/ML-1ML VIAL IV PRN (06:37)
[2020-08-18] MEDS: VANCOMYCIN 1GM/250ML 250 ML IV SCH ×2 (08:31→16:13)
[2020-08-18 09:00] VITALS: BP 125/73
[2020-08-18] MEDS: POTASSIUM CHL 20 Meq TABLET PO SCH (09:34)
[2020-08-18] MEDS: DULoxetine HCL 30 MG CAP PO SCH (09:35)
[2020-08-18] MEDS: ATENOLOL 50 MG TAB PO SCH (09:36)
[2020-08-18] MEDS: levETIRAcetam 500 MG TAB PO SCH ×2 (09:36→21:24)
[2020-08-18] MEDS: GABAPENTIN 300 MG CAP PO SCH ×2 (09:37→21:24)
[2020-08-18] MEDS: OLANZapine 5 MG TAB PO SCH (09:37)
[2020-08-18] MEDS: LOSARTAN POTASSIUM 50 MG TAB PO SCH (09:38)
[2020-08-18] MEDS: FAMOTIDINE (10MG/ML) 2ML VL IV SCH ×2 (09:38→21:24)
[2020-08-18] MEDS: levoFLOXacin 500MG 100 ML IV SCH (09:51)
[2020-08-18] MEDS: SILVER SULFADIAZINE 1 % TOPICAL CREAM 50GM TOP SCH (09:51)
[2020-08-18] MEDS ORDERED: IOHEXOL 300 MG/ML 100ML BOTTLE IJ ONE (11:53)
[2020-08-18 13:00] VITALS: BP 140/98
[2020-08-18] MEDS: FOLIC ACID 1 MG, MULTIPLE VITAMIN 10 ML, MAGNESIUM SULF SDV 50% 8 MEQ, THIAMINE INJ 100... INJ SCH ×5 (14:25)
[2020-08-18 16:21] VITALS: BP 131/82
[2020-08-18 20:00] VITALS: BP 127/75
[2020-08-18 22:00] VITALS: BP 127/75
[2020-08-19] MEDS: VANCOMYCIN 1GM/250ML 250 ML IV SCH ×4 (00:18→23:52)
[2020-08-19] MEDS: MORPHINE SULF INJ 2 MG/ML SYRINGE 1ML IV PRN ×5 (00:18→21:39)
[2020-08-19 05:00] VITALS: BP 115/81
[2020-08-19] MEDS: SODIUM CHLORIDE 0.9% 1,000 ML IV SCH ×3 (05:09→18:04)
[2020-08-19 06:00] LABS: Hematocrit 34.3 % (41.0-53.0); Hemoglobin 11.7 g/dL (13.5-17.5); Mean Corpuscular Hemoglobin 32.9 pg (28.0-32.0); Mean Corpuscular Hgb Conc. 34.2 g/dL (32.0-36.0); Mean Corpuscular Volume 96.3 fL (80.0-100.0); Platelet Count (auto) 309 10^3/uL (140-450); Red Blood Cells 3.56 10^6/uL (4.5-5.90); Red Cell Distribution Width 13.9 % (11.8-14.3); White Blood Cell 13.5 10^3/uL (4.4-10.8)
[2020-08-19] MEDS: metroNIDAZOLE 500MG/100ML 100 ML IV SCH ×3 (06:05→21:38)
[2020-08-19] MEDS: hydrOXYzine 25 MG TAB or CAP PO SCH ×3 (06:05→21:39)
[2020-08-19 06:19] LABS: Albumin 2.4 g/dL (3.4-5.0); Calcium 8.8 mg/dL (8.5-10.1); Potassium 3.5 mmol/L (3.5-5.1)
[2020-08-19 06:21] LABS: Basophils % (manual) 0 (0.0-2.0); Blast Cells 0; Promyelocytes % 0; Reactive Lymphocytes 0
[2020-08-19 06:31] LABS: BUN/Creatinine Ratio 6.6; Bilirubin, Total 0.4 mg/dL (0.2-1.0); Total Protein 6.6 g/dL (6.4-8.2)
[2020-08-19 07:07] LABS: Band Neutrophils % (manual) 1; Eosinophils % (manual) 1 (0-7); Lymphocytes % (manual) 22 (10.0-50.0); Metamyelocytes % 2; Monocytes % (manual) 11 (0-12); Myelocytes % 5
[2020-08-19 09:00] VITALS: BP 117/62
[2020-08-19] MEDS: levoFLOXacin 500MG 100 ML IV SCH (09:46)
[2020-08-19] MEDS: GABAPENTIN 300 MG CAP PO SCH ×2 (09:46→21:39)
[2020-08-19] MEDS: levETIRAcetam 500 MG TAB PO SCH ×2 (09:46→21:39)
[2020-08-19] MEDS: FAMOTIDINE (10MG/ML) 2ML VL IV SCH ×2 (09:46→21:38)
[2020-08-19] MEDS: LOSARTAN POTASSIUM 50 MG TAB PO SCH (09:47)
[2020-08-19] MEDS: POTASSIUM CHL 20 Meq TABLET PO SCH (09:47)
[2020-08-19] MEDS: OLANZapine 5 MG TAB PO SCH (09:48)
[2020-08-19] MEDS: ATENOLOL 50 MG TAB PO SCH (09:48)
[2020-08-19] MEDS: DULoxetine HCL 30 MG CAP PO SCH (09:48)
[2020-08-19] MEDS: SILVER SULFADIAZINE 1 % TOPICAL CREAM 50GM TOP SCH (09:48)
[2020-08-19] MEDS: FOLIC ACID 1 MG, MULTIPLE VITAMIN 10 ML, MAGNESIUM SULF SDV 50% 8 MEQ, THIAMINE INJ 100... INJ SCH ×5 (12:25)
[2020-08-19 13:00] VITALS: BP 126/88
[2020-08-19 16:52] VITALS: BP 136/90
[2020-08-19 18:41] LABS: INR 1.09 (0.9-1.15); Partial Thromboplastin Time 29.1 sec (23.0-31.2)
[2020-08-19] MEDS ORDERED: LIDOCAINE 1% (LOCAL ANESTH.) PF 5ml SDV ID ONE (19:15)
[2020-08-19] MEDS: SODIUM CHLOR 0.9% PF (SALINE LOCK) 10ML VIAL/SYR IV SCH (21:38)
[2020-08-19] MEDS: PROMETHAZINE HCL 25 MG/ML 1ML IV PRN (21:40)
[2020-08-19 22:00] VITALS: BP 135/90
[2020-08-19] MEDS: ZOLPIDEM TARTRATE 5 MG TAB PO PRN (23:13)
[2020-08-20] MEDS: SODIUM CHLORIDE 0.9% 1,000 ML IV SCH ×4 (02:21→21:43)
[2020-08-20 05:02] VITALS: BP 117/91
[2020-08-20] MEDS: metroNIDAZOLE 500MG/100ML 100 ML IV SCH ×3 (06:00→21:43)
[2020-08-20] MEDS: hydrOXYzine 25 MG TAB or CAP PO SCH ×3 (06:01→21:44)
[2020-08-20] MEDS: VANCOMYCIN 1GM/250ML 250 ML IV SCH ×2 (08:53→16:07)
[2020-08-20] MEDS: MORPHINE SULF INJ 2 MG/ML SYRINGE 1ML IV PRN ×4 (08:54→21:54)
[2020-08-20 09:00] VITALS: BP 134/78
[2020-08-20] MEDS: GABAPENTIN 300 MG CAP PO SCH ×2 (10:12→21:43)
[2020-08-20] MEDS: levoFLOXacin 500MG 100 ML IV SCH (10:12)
[2020-08-20] MEDS: OLANZapine 5 MG TAB PO SCH (10:13)
[2020-08-20] MEDS: FAMOTIDINE (10MG/ML) 2ML VL IV SCH ×2 (10:13→21:43)
[2020-08-20] MEDS: LOSARTAN POTASSIUM 50 MG TAB PO SCH (10:13)
[2020-08-20] MEDS: levETIRAcetam 500 MG TAB PO SCH ×2 (10:14→21:43)
[2020-08-20] MEDS: SODIUM CHLOR 0.9% PF (SALINE LOCK) 10ML VIAL/SYR IV SCH ×2 (10:14→21:43)
[2020-08-20] MEDS: DULoxetine HCL 30 MG CAP PO SCH (10:14)
[2020-08-20] MEDS: ATENOLOL 50 MG TAB PO SCH (10:14)
[2020-08-20] MEDS: POTASSIUM CHL 20 Meq TABLET PO SCH (10:14)
[2020-08-20] MEDS: SILVER SULFADIAZINE 1 % TOPICAL CREAM 50GM TOP SCH (10:15)
[2020-08-20] MEDS: FOLIC ACID 1 MG, MULTIPLE VITAMIN 10 ML, MAGNESIUM SULF SDV 50% 8 MEQ, THIAMINE INJ 100... INJ SCH ×5 (12:09)
[2020-08-20 13:00] VITALS: BP 128/84
[2020-08-20 16:51] VITALS: BP 121/84
[2020-08-20 22:00] VITALS: BP 132/83
[2020-08-21] MEDS: VANCOMYCIN 1GM/250ML 250 ML IV SCH ×2 (00:26→08:15)
[2020-08-21] MEDS: MORPHINE SULF INJ 2 MG/ML SYRINGE 1ML IV PRN ×2 (02:00→10:01)
[2020-08-21] MEDS: ZOLPIDEM TARTRATE 5 MG TAB PO PRN (02:49)
[2020-08-21 05:00] VITALS: BP 118/69
[2020-08-21] MEDS: hydrOXYzine 25 MG TAB or CAP PO SCH (06:04)
[2020-08-21] MEDS: SODIUM CHLORIDE 0.9% 1,000 ML IV SCH ×2 (06:04→10:29)
[2020-08-21] MEDS: metroNIDAZOLE 500MG/100ML 100 ML IV SCH (06:04)
[2020-08-21 06:30] LABS: Hemoglobin 10.8 g/dL (13.5-17.5); Mean Corpuscular Hemoglobin 32.8 pg (28.0-32.0); Mean Corpuscular Hgb Conc. 33.9 g/dL (32.0-36.0); Platelet Count (auto) 365 10^3/uL (140-450); Red Cell Distribution Width 13.6 % (11.8-14.3); White Blood Cell 14.2 10^3/uL (4.4-10.8)
[2020-08-21 06:43] LABS: BUN/Creatinine Ratio 6.9; Calcium 8.7 mg/dL (8.5-10.1)
[2020-08-21 07:01] LABS: Basophils % (manual) 0 (0.0-2.0); Blast Cells 0; Promyelocytes % 0; Reactive Lymphocytes 0
[2020-08-21 08:50] VITALS: BP 119/71
[2020-08-21] MEDS: OLANZapine 5 MG TAB PO SCH (09:58)
[2020-08-21] MEDS: POTASSIUM CHL 20 Meq TABLET PO SCH (09:58)
[2020-08-21] MEDS: GABAPENTIN 300 MG CAP PO SCH (09:59)
[2020-08-21] MEDS: DULoxetine HCL 30 MG CAP PO SCH (09:59)
[2020-08-21] MEDS: levETIRAcetam 500 MG TAB PO SCH (09:59)
[2020-08-21] MEDS: ATENOLOL 50 MG TAB PO SCH (10:00)
[2020-08-21] MEDS: LOSARTAN POTASSIUM 50 MG TAB PO SCH (10:00)
[2020-08-21] MEDS: SILVER SULFADIAZINE 1 % TOPICAL CREAM 50GM TOP SCH (10:00)
[2020-08-21] MEDS: SODIUM CHLOR 0.9% PF (SALINE LOCK) 10ML VIAL/SYR IV SCH (10:01)
[2020-08-21] MEDS: levoFLOXacin 500MG 100 ML IV SCH (10:01)
[2020-08-21] MEDS: FAMOTIDINE (10MG/ML) 2ML VL IV SCH (10:01)
[2020-08-21] MEDS: FOLIC ACID 1 MG, MULTIPLE VITAMIN 10 ML, MAGNESIUM SULF SDV 50% 8 MEQ, THIAMINE INJ 100... INJ SCH ×5 (12:00)
[2020-08-21 12:11] LABS: Band Neutrophils % (manual) 6; Eosinophils % (manual) 4 (0-7); Lymphocytes % (manual) 8 (10.0-50.0); Metamyelocytes % 1; Monocytes % (manual) 11 (0-12); Myelocytes % 2
[2020-08-21 12:21] VITALS: BP 138/85
[2020-08-21 13:00] VITALS: BP 138/85
== END 2020-08-21 13:33 | disposition home or self-care (01) | DRG 871 ==
LOC: ER 07:40 → TELE 07:41 → TELE-WESTW 19:50
PROVIDERS: ADMIT Internal Medicine; ATTEND Family Medicine
PROC: 02HV33Z Insertion of Infusion Device into Superior Vena Cava, Percutaneous Approach (ICD-10-PCS; principal; 2020-08-19)
DX: A41.9 Sepsis, unspecified organism (principal); K85.92 Acute pancreatitis with infected necrosis, unspecified; N17.9 Acute kidney failure, unspecified; K86.3 Pseudocyst of pancreas; I10 Essential (primary) hypertension; E86.0 Dehydration; F12.90 Cannabis use, unspecified, uncomplicated; F41.9 Anxiety disorder, unspecified; R56.9 Unspecified convulsions; K76.0 Fatty (change of) liver, not elsewhere classified; E66.9 Obesity, unspecified; E83.42 Hypomagnesemia; E83.51 Hypocalcemia; F17.210 Nicotine dependence, cigarettes, uncomplicated; Z87.442 Personal history of urinary calculi; Z68.39 Body mass index [BMI] 39.0-39.9, adult; Z88.0 Allergy status to penicillin
CPT/HCPCS: 36415; 36569; 71045; 74176; 74177; 76705; 80048; 80053; 80061; 80202; 80307; 81001; 82150; 82550; 82565; 83690; 83735; 85007; 85025; 85027; 85610; 85730; 87040; 87086; 93005; G0378; J1956; J2405; J3490; J7060

== ENCOUNTER 2020-08-30 16:05 | Inpatient (IN) | payer MEDICARE, MEDICAID ==
[~2020-08-30] VITALS: Ht 182.9 cm; Wt 136.1 kg
[~2020-08-30 16:05] MED LIST changes: +DULO60CA PO; +FOLI1TAB6 PO; +HYDR-3682 PO; +MELO1TAB56 PO; +OLAN1TAB19 PO; -OLAN20TA30; +OMEP20TA PO; -VENL37.511
[2020-08-30] MEDS ORDERED: FUROSEMIDE 40 MG/4 ML VIAL IV ONE (16:30)
[2020-08-30 17:01] LABS: Basophils # (auto) 0.1 10 ^3/uL (0-0.2); Basophils % (auto) 0.6 % (0.0-2.0); Eosinophils # (auto) 0.3 10 ^3/uL (0-0.8); Eosinophils % (auto) 1.7 % (0.0-7.0); Hematocrit 31.7 % (41.0-53.0); Hemoglobin 10.7 g/dL (13.5-17.5); Lymphocytes # (auto) 2.1 10 ^3/uL (0.4-5.4); Lymphocytes % (auto) 12.7 % (10.0-50.0); Mean Corpuscular Hemoglobin 32.3 pg (28.0-32.0); Mean Corpuscular Hgb Conc. 33.7 g/dL (32.0-36.0); Mean Corpuscular Volume 95.7 fL (80.0-100.0); Monocytes # (auto) 1.3 10 ^3/uL (0-1.3); Monocytes % (auto) 8.1 % (0.0-12.0); Neutrophils # (auto) 12.7 10 ^3/uL (1.6-8.6); Neutrophils % (auto) 76.9 % (37.0-80.0); Platelet Count (auto) 551 10^3/uL (140-450); Red Blood Cells 3.31 10^6/uL (4.5-5.90); Red Cell Distribution Width 13.9 % (11.8-14.3); White Blood Cell 16.5 10^3/uL (4.4-10.8)
[2020-08-30 17:17] LABS: Alanine Aminotransferase 39 U/L (16-61); Albumin 2.7 g/dL (3.4-5.0); Anion Gap 8 (5-15); Aspartate Aminotransferase 44 U/L (15-37); Blood Urea Nitrogen 26 mg/dL (7-18); Calcium 8.9 mg/dL (8.5-10.1); Carbon Dioxide 25 mmol/L (21-32); Chloride 105 mmol/L (98-107); GFR African American 92 mL/min; GFR Non-African American 76 mL/min; Glucose 98 mg/dL (74-106); Potassium 4.3 mmol/L (3.5-5.1); Sodium 138 mmol/L (136-145)
[2020-08-30 17:22] LABS: Alkaline Phosphatase 100 U/L (45-117); Bilirubin, Total 0.2 mg/dL (0.2-1.0); Total Protein 6.9 g/dL (6.4-8.2)
[2020-08-30] MEDS ORDERED: MORPHINE SULF INJ 2 MG/ML SYRINGE 1ML IV PRN (18:15)
[2020-08-30] MEDS ORDERED: NITROGLYCERIN 0.4 MG SL TAB SL PRN (18:15)
[2020-08-30 18:33] LABS: Urine Bacteria NONE SEEN /hpf (None Seen); Urine Blood Negative /uL (Negative); Urine Specific Gravity 1.006 (1.001-1.035); Urine WBC <1 /hpf (0 - 3)
[2020-08-30] MEDS: levoFLOXacin 500MG 100 ML IV SCH (18:34)
[2020-08-30] MEDS: ENOXAPARIN SOD 40 MG/0.4 ML SYRINGE SC SCH (18:34)
[2020-08-30 18:47] LABS: INR 0.98 (0.9-1.15); Partial Thromboplastin Time 26.8 sec (23.0-31.2)
[2020-08-30] MEDS ORDERED: LORazepam 2MG/ML-1ML VIAL ONE (19:40)
[2020-08-30] MEDS ORDERED: LORazepam 2MG/ML-1ML VIAL IV PRN (20:00)
[2020-08-30] MEDS ORDERED: LORazepam 2MG/ML-1ML VIAL IV STA (20:04)
[2020-08-30] MEDS: LORazepam 2MG/ML-1ML VIAL IV PRN (20:27)
[2020-08-30] MEDS ORDERED: levETIRAcetam 500 MG/5ML INJ IV ONE (20:44)
[2020-08-30] MEDS ORDERED: levETIRAcetam 500 MG TAB PO SCH (22:00)
[2020-08-30] MEDS: ATENOLOL 25 MG TAB PO SCH (22:11)
[2020-08-30] MEDS: GABAPENTIN 300 MG CAP PO SCH (22:11)
[2020-08-30 22:28] VITALS: BP 111/67
--- NOTE | 2020-08-30 22:28 | NUR ---
assumed care of pt admitted via gurney from ER able to ambulate with steady gate, alert and oriented x 4, on 6 liter vis NRB mask, per pt request, likes better than n/c, skin CDI, no s/s of distress. Side rails padded to observe sz precautions, fall risk band placed. Addendum: 08/30/20 at 0218 by NAOMI TUCKER RN RN pt is being placed on simple mask at 6Lpm
[2020-08-30 22:30] VITALS: BP 111/67
[2020-08-31] MEDS: HYDROcodone-ACET 5/325MG TAB PO PRN ×4 (03:18→21:10)
[2020-08-31 05:00] VITALS: BP 96/57
--- NOTE | 2020-08-31 06:10 | NUR ---
responded to pt's room, observed pt on floor having a seizure, code assist requested, Ativan given prn, pts airway patent, O2 sats 100%.
[2020-08-31 06:13] LABS: Basophils # (auto) 0.2 10 ^3/uL (0-0.2); Basophils % (auto) 1.2 % (0.0-2.0); Eosinophils # (auto) 0.4 10 ^3/uL (0-0.8); Eosinophils % (auto) 2.9 % (0.0-7.0); Hematocrit 32.9 % (41.0-53.0); Hemoglobin 10.8 g/dL (13.5-17.5); Lymphocytes # (auto) 2.1 10 ^3/uL (0.4-5.4); Lymphocytes % (auto) 15.9 % (10.0-50.0); Mean Corpuscular Hemoglobin 32.2 pg (28.0-32.0); Mean Corpuscular Hgb Conc. 32.7 g/dL (32.0-36.0); Mean Corpuscular Volume 98.5 fL (80.0-100.0); Monocytes # (auto) 1.2 10 ^3/uL (0-1.3); Monocytes % (auto) 8.8 % (0.0-12.0); Neutrophils # (auto) 9.3 10 ^3/uL (1.6-8.6); Neutrophils % (auto) 71.2 % (37.0-80.0); Nucleated Red Blood Cells % 0.1 %; Platelet Count (auto) 434 10^3/uL (140-450); Red Blood Cells 3.34 10^6/uL (4.5-5.90); Red Cell Distribution Width 13.9 % (11.8-14.3); White Blood Cell 13.1 10^3/uL (4.4-10.8)
[2020-08-31] MEDS: LORazepam 2MG/ML-1ML VIAL IV PRN ×3 (06:19→16:06)
--- NOTE | 2020-08-31 06:20 | NUR ---
pt placed back in bed, no obvious injuries observed, bs 82, pt able to drink juice at this time, CT ordered for f/u. pt is alert and oriented at this time, able to answer questions.
[2020-08-31 06:33] LABS: Potassium 4.4 mmol/L (3.5-5.1)
[2020-08-31 06:42] LABS: BUN/Creatinine Ratio 22.6; Calcium 8.9 mg/dL (8.5-10.1)
[2020-08-31] MEDS: OLANZapine 5 MG TAB PO SCH (08:55)
[2020-08-31] MEDS: GABAPENTIN 300 MG CAP PO SCH ×2 (08:55→22:48)
[2020-08-31] MEDS: DULoxetine HCL 30 MG CAP PO SCH (08:55)
[2020-08-31] MEDS: PANTOPRAZOLE 40 MG TAB PO SCH (08:55)
[2020-08-31] MEDS: ENOXAPARIN SOD 40 MG/0.4 ML SYRINGE SC SCH (08:59)
[2020-08-31 09:00] VITALS: BP_SYST 103; BP_SYST 113; BP_DIAS 59; BP_DIAS 70
[2020-08-31] MEDS: ATENOLOL 25 MG TAB PO SCH ×2 (09:04→22:00)
[2020-08-31] MEDS ORDERED: predniSONE 20 MG TAB PO ONE (11:15)
--- NOTE | 2020-08-31 15:59 | NUR ---
SEIZURE ACTIVITY PER RELIEF RN GUME, BATHROOM DOOR WAS SLAMMED AND PATIENT'S DOOR WAS ROCKING BACK AND FORTH. DOOR WAS OPENED AND PATIENT WAS FOUND ON FLOOR SHAKING, ROCKING, AND UNRESPONSIVE. RT, TALENT ADVISOR AND KNUCKLE STRAP SEWER PAGED. PATIENT PLACED ON 15 L NONREBREATHER. VITALS ARE FOLLOWS 109/68 mmHg AND HEART RATE 112. 1606 SEIZURE ACTIVITY STOPPED AFTER SECOND ATIVAN GIVEN. VITALS ARE FOLLOW 123/82 mmHg, HEART RATE 94 BPM.
--- NOTE | 2020-08-31 16:10 | NUR ---
PATIENT PLACED IN BED WITH ASSISTANCE FROM STAFF. MD SANCHEZ PAGED. PATIENT IS AWAKE, ALERT AND ORIENTED X1 (PERSON). REORIENTED PATIENT TO PLACE, TIME, AND SITUATION. AWAITING CALL BACK FROM NEUROLOGIST.
[2020-08-31 17:00] VITALS: BP 103/63
--- NOTE | 2020-08-31 17:00 | NUR ---
RECEIVED CALL FROM ALEXANDR GARCÍA INFORMED PATIENT HAD A SEIZURE THAT LASTED FOR 5 MINUTES AND ATIVAN WAS GIVEN TWICE. DIRECTOR SMB SALES IS AWARE AND ORDERED NEURO CHECKS AND NEUROLOGY CONSULT.
--- NOTE | 2020-08-31 17:03 | NUR ---
PAGED BUILD TECHNICIAN HOSPITALIST. AWAITING CALL BACK
[2020-08-31] MEDS: levoFLOXacin 500MG 100 ML IV SCH (17:16)
--- NOTE | 2020-08-31 18:42 | NUR ---
CLOSING SHIFT NOTE WILL ENDORSE CARE TO FUR STYLIST RN. PATIENT HAS NO S/S OF DISTRESS/SOB OR PAIN AT THIS TIME.
--- NOTE | 2020-08-31 19:00 | NUR ---
Opening Shift Note Assumed care of patient, awake and alert x4. No S/S of distress/SOB. Instructed on POC and to call for assist PRN, will continue to monitor for changes Q1hr and PRN. Beds in low position, call light within reach, bedalarm on, seizure pad precaution. Will continue to monitor and educate patient.
[2020-08-31 21:59] VITALS: BP 97/64
--- NOTE | 2020-08-31 23:47 | NUR ---
PATIENT BACK FROM CT. PATIENT TOLERATED WELL. GAVE PAIN MEDICATION ORDERED. PLS SEE EMAR. Addendum: 09/02/20 at 0002 by JAIR HERRERA RN RN WRONG DATE
[2020-09-01] VITALS (8 sets, daily range): BP systolic 97–134; BP diastolic 64–77
--- NOTE | 2020-09-01 00:08 | NUR ---
Paged the hospitalist regarding Anti anxiety med requested by patient. waiting for callback.
--- NOTE | 2020-09-01 00:23 | NUR ---
Obtained an order for anxiety medication from hospitalist. will carry order. pls see emar.
[2020-09-01] MEDS ORDERED: TEMAZEPAM 15 MG CAP PO ONE (00:30)
--- NOTE | 2020-09-01 00:57 | NUR ---
Paged RT for CPAP placement for patient.
--- NOTE | 2020-09-01 02:05 | NUR ---
Called RT for CPAP placement of patient. RT said he is coming. will continue to monitor patient.
[2020-09-01 06:37] LABS: Basophils # (auto) 0 10 ^3/uL (0-0.2); Basophils % (auto) 0.3 % (0.0-2.0); Eosinophils # (auto) 0.1 10 ^3/uL (0-0.8); Eosinophils % (auto) 1.1 % (0.0-7.0); Hematocrit 32.4 % (41.0-53.0); Hemoglobin 10.6 g/dL (13.5-17.5); Lymphocytes % (auto) 16.6 % (10.0-50.0); Mean Corpuscular Hemoglobin 31.6 pg (28.0-32.0); Mean Corpuscular Hgb Conc. 32.7 g/dL (32.0-36.0); Mean Corpuscular Volume 96.9 fL (80.0-100.0); Monocytes # (auto) 0.9 10 ^3/uL (0-1.3); Monocytes % (auto) 7.5 % (0.0-12.0); Neutrophils # (auto) 9.2 10 ^3/uL (1.6-8.6); Neutrophils % (auto) 74.5 % (37.0-80.0); Platelet Count (auto) 423 10^3/uL (140-450); Red Blood Cells 3.34 10^6/uL (4.5-5.90); White Blood Cell 12.3 10^3/uL (4.4-10.8)
[2020-09-01] MEDS: HYDROcodone-ACET 5/325MG TAB PO PRN ×4 (06:50→20:33)
[2020-09-01 07:05] LABS: Potassium 3.6 mmol/L (3.5-5.1)
[2020-09-01 07:11] LABS: BUN/Creatinine Ratio 16.9
[2020-09-01] MEDS: THIAMINE 100mg/ml INJ (200mg/2ml VIAL) IV SCH (10:03)
[2020-09-01] MEDS: predniSONE 20 MG TAB PO SCH (10:03)
[2020-09-01] MEDS: DULoxetine HCL 30 MG CAP PO SCH (10:03)
[2020-09-01] MEDS: PANTOPRAZOLE 40 MG TAB PO SCH (10:04)
[2020-09-01] MEDS: OLANZapine 5 MG TAB PO SCH (10:04)
[2020-09-01] MEDS: ATENOLOL 25 MG TAB PO SCH ×2 (10:04→21:40)
[2020-09-01] MEDS: GABAPENTIN 300 MG CAP PO SCH ×2 (10:04→21:39)
[2020-09-01] MEDS: ENOXAPARIN SOD 40 MG/0.4 ML SYRINGE SC SCH (10:05)
[2020-09-01] MEDS: levoFLOXacin 500MG 100 ML IV SCH (18:40)
--- NOTE | 2020-09-01 19:00 | NUR ---
Opening Shift Note Assumed care of patient, awake and alert X4. No S/S of distress/SOB. Bed in low position, bed alarm on. on seizure precaution, suction wall set up at bedside. x3 siderails up for safety. Instructed on POC and to call for assist PRN, will continue to monitor for changes Q1hr and PRN.
--- NOTE | 2020-09-01 22:29 | NUR ---
PATIENT STARTED SEIZURE. PATIENT ALARM WENT OFF. MAYO ANTUNEZ WENT INSIDE THE ROOM. SAW THE PATIENT ON THE FLOOR. Addendum: 09/01/20 at 2343 by JAIR HERRERA RN RN PLACED PATIENT ON RIGHT SIDE POSITION. SECURE HEAD WITH PILLOWS. 4 OTHER PEOPLE WERE INSIDE THE ROOM.
--- NOTE | 2020-09-01 22:29 | NUR ---
IV pulled out due to patient having seizure and fell on the floor.
[2020-09-01] MEDS: LORazepam 2MG/ML-1ML VIAL IV PRN ×2 (22:31→22:41)
--- NOTE | 2020-09-01 22:31 | NUR ---
GAVE FIRST DOSE OF ATIVAN 1 MG.
--- NOTE | 2020-09-01 22:41 | NUR ---
PATIENT STILL ONGOING SEIZURE. GAVE 2ND DOSE 1 MG ATIVAN IV ORDERED. PLS SEE EMAR
--- NOTE | 2020-09-01 22:45 | NUR ---
PATIENT SEIZURE STOP. LIFTED BACK PATIENT TO BED FROM THE FLOOR.
--- NOTE | 2020-09-01 22:55 | NUR ---
IV insertion IV access obtained, via clean sterile technique by inserting 22 gauge catheter at RIGHT UPPER ARM after 2 attempt(s). IV secured properly. No trauma to site. Patient tolerated well. NOTE:
--- NOTE | 2020-09-01 23:25 | NUR ---
PATIENT WENT DOWN TO CT WITH PRIYA HUBER AND KENJI FISHMAN FOR CT OF THE HEAD AND PELVIS.
--- NOTE | 2020-09-01 23:47 | NUR ---
PATIENT BACK FROM CT. PATIENT TOLERATED. GAVE PAIN MEDICATION ORDERED. PLS SEE EMAR.
[2020-09-01] MEDS: MORPHINE SULF INJ 2 MG/ML SYRINGE 1ML IV PRN (23:56)
[2020-09-02 05:00] VITALS: BP 116/73
--- NOTE | 2020-09-02 05:35 | NUR ---
Transfer patient to room 221B. patient requiring sitter for seizure fall. patient tolerated
[2020-09-02] MEDS: MORPHINE SULF INJ 2 MG/ML SYRINGE 1ML IV PRN ×3 (05:55→20:07)
[2020-09-02 06:27] LABS: Basophils # (auto) 0 10 ^3/uL (0-0.2); Basophils % (auto) 0.3 % (0.0-2.0); Eosinophils # (auto) 0.1 10 ^3/uL (0-0.8); Eosinophils % (auto) 0.6 % (0.0-7.0); Hematocrit 32.7 % (41.0-53.0); Lymphocytes # (auto) 2.6 10 ^3/uL (0.4-5.4); Lymphocytes % (auto) 19.1 % (10.0-50.0); Mean Corpuscular Hemoglobin 31.9 pg (28.0-32.0); Mean Corpuscular Hgb Conc. 33.7 g/dL (32.0-36.0); Mean Corpuscular Volume 94.7 fL (80.0-100.0); Monocytes # (auto) 1.2 10 ^3/uL (0-1.3); Monocytes % (auto) 8.4 % (0.0-12.0); Neutrophils # (auto) 9.9 10 ^3/uL (1.6-8.6); Neutrophils % (auto) 71.6 % (37.0-80.0); Platelet Count (auto) 422 10^3/uL (140-450); Red Blood Cells 3.45 10^6/uL (4.5-5.90); Red Cell Distribution Width 13.6 % (11.8-14.3); White Blood Cell 13.8 10^3/uL (4.4-10.8)
[2020-09-02 06:33] LABS: BUN/Creatinine Ratio 15.4; Calcium 8.7 mg/dL (8.5-10.1); Potassium 3.3 mmol/L (3.5-5.1)
--- NOTE | 2020-09-02 06:42 | NUR ---
Respiratory note: PT WAS MOVED FROM ROOM 219-B TO 221-B. PAGED TO PT'S NEW ROOM. UPON ARRIVAL PT WAS OFF CPAP UNIT. PT WAS PLACED ON SIMPLE MASK AT 6L. NO SOB OR DISTRESS NOTED PT CONTINUED TO SLEEP.
--- NOTE | 2020-09-02 06:58 | NUR ---
Closing shift report Patient awake, No Sob seen. Sitter at bedside. Bed in low position, bed alarm on, red non skid socks on. seizure precaution for safety, wall suction at bedside.
[2020-09-02] MEDS: THIAMINE 100mg/ml INJ (200mg/2ml VIAL) IV SCH (08:42)
[2020-09-02] MEDS: predniSONE 20 MG TAB PO SCH (08:43)
[2020-09-02] MEDS: DULoxetine HCL 30 MG CAP PO SCH (08:43)
[2020-09-02] MEDS: PANTOPRAZOLE 40 MG TAB PO SCH (08:43)
[2020-09-02] MEDS: GABAPENTIN 300 MG CAP PO SCH ×2 (08:43→22:31)
[2020-09-02] MEDS: ATENOLOL 25 MG TAB PO SCH ×2 (08:43→22:00)
[2020-09-02] MEDS: HYDROcodone-ACET 5/325MG TAB PO PRN ×3 (08:44→22:42)
[2020-09-02] MEDS: OLANZapine 5 MG TAB PO SCH (08:44)
[2020-09-02 09:00] VITALS: BP 123/77
[2020-09-02] MEDS: ENOXAPARIN SOD 40 MG/0.4 ML SYRINGE SC SCH (10:50)
--- NOTE | 2020-09-02 12:50 | NUR ---
assessment Patient is a 40 year old male who is alert and oriented. Prior to admission patient lived home with his and family and functioned with assistance. Per patient he will return home to his prior living arrangements post discharge and family will transport him home. Per patient he has crutches for home use. Patient has a cpap for home use. Patient may benefit from a fww on discharge. Patients PCP is Dr Lucia. Patient has no safety concerns regarding returning home on discharge. I informed patient he has a right to speak to a executive secretary social welfare regarding all care. I informed patient he has a right to participate in any and all discharge planning. Patient does not have a POA and advanced directive. I have offered patient information on POA and advanced directives. I informed the patient the advantages and benefits of having an Advanced Directive. Patient verbalized understanding and agreed to discharge plan. Addendum: 09/02/20 at 1251 by Bettye COX Amended: Links added.
[2020-09-02 13:00] VITALS: BP 128/73
[2020-09-02] MEDS: LORazepam 2MG/ML-1ML VIAL IV PRN (13:55)
--- NOTE | 2020-09-02 15:40 | NUR ---
D/C Planning Per social service consult for a walker. faxed clinical information to [facility] requesting for walker to be deliver to bedside. Per Lesley Franco they will deliver walker to patient home they order a heavy duty walker for patient.
[2020-09-02] MEDS ORDERED: POTASSIUM CHL 20 Meq TABLET PO ONE (16:15)
[2020-09-02] MEDS ORDERED: POTASSIUM CHL 10 Meq TABLET PO ONE (16:15)
[2020-09-02 17:00] VITALS: BP 102/68
[2020-09-02] MEDS: levoFLOXacin 500MG 100 ML IV SCH (17:24)
[2020-09-02 21:15] LABS: Basophils # (auto) 0.1 10 ^3/uL (0-0.2); Basophils % (auto) 0.4 % (0.0-2.0); Eosinophils # (auto) 0 10 ^3/uL (0-0.8); Hematocrit 33.9 % (41.0-53.0); Hemoglobin 11.1 g/dL (13.5-17.5); Lymphocytes # (auto) 1.6 10 ^3/uL (0.4-5.4); Lymphocytes % (auto) 11.5 % (10.0-50.0); Mean Corpuscular Hemoglobin 31.7 pg (28.0-32.0); Mean Corpuscular Hgb Conc. 32.8 g/dL (32.0-36.0); Mean Corpuscular Volume 96.7 fL (80.0-100.0); Monocytes # (auto) 1.1 10 ^3/uL (0-1.3); Monocytes % (auto) 8.1 % (0.0-12.0); Platelet Count (auto) 428 10^3/uL (140-450); Red Blood Cells 3.51 10^6/uL (4.5-5.90); Red Cell Distribution Width 14.2 % (11.8-14.3); White Blood Cell 13.8 10^3/uL (4.4-10.8)
[2020-09-02 21:35] LABS: BUN/Creatinine Ratio 16.7; Calcium 8.9 mg/dL (8.5-10.1); Potassium 4.4 mmol/L (3.5-5.1)
[2020-09-02 22:00] VITALS: BP 104/59
[2020-09-03 05:52] VITALS: BP 112/69
--- NOTE | 2020-09-03 06:42 | NUR ---
Respiratory note: PT IS AWAKE, AND ALERT ATTEMPTING TO TAKE CPAP OFF. PT TAKEN OFF OF CPAP. NO RESPIRATORY DISTRESS NOTED. SPO2 94% ON RA, HR 89, RR 18, BS CLEAR BILATERALLY. NO FURTHER RESPIRATORY INTERVENTIONS INDICATED AT THIS TIME. WILL CONTINUE TO MONITOR PT.
--- NOTE | 2020-09-03 07:41 | NUR ---
Opening Shift Note Assumed patient care from NOC RN, Mateo. Patient currently shows no signs of distress. Respirations even and unlabored. Sitter at bedside; safety precautions in place, including seizure precautions. Call light within reach. Will continue to monitor q1hr and PRN.
--- NOTE | 2020-09-03 07:48 | NUR ---
provided report to day rn. patient is resting in bed with no signs of distress at this time. patient has sitter at bedside and patient has seizure precautions on.
[2020-09-03] MEDS: MORPHINE SULF INJ 2 MG/ML SYRINGE 1ML IV PRN ×2 (08:23→13:51)
[2020-09-03 09:00] VITALS: BP 128/90
[2020-09-03] MEDS: HYDROcodone-ACET 5/325MG TAB PO PRN ×2 (09:44→19:37)
[2020-09-03] MEDS: THIAMINE 100mg/ml INJ (200mg/2ml VIAL) IV SCH (10:17)
[2020-09-03] MEDS: predniSONE 20 MG TAB PO SCH (10:17)
[2020-09-03] MEDS: PANTOPRAZOLE 40 MG TAB PO SCH (10:18)
[2020-09-03] MEDS: ATENOLOL 25 MG TAB PO SCH ×2 (10:18→21:26)
[2020-09-03] MEDS: ENOXAPARIN SOD 40 MG/0.4 ML SYRINGE SC SCH (10:19)
[2020-09-03] MEDS: DULoxetine HCL 30 MG CAP PO SCH (10:19)
--- NOTE | 2020-09-03 10:59 | NUR ---
Pharmacy Per pharmacy: will reschedule Zyprexa at 2200 per patient's home schedule.
[2020-09-03] MEDS: GABAPENTIN 300 MG CAP PO SCH ×2 (11:12→21:26)
--- NOTE | 2020-09-03 11:37 | NUR ---
at Bedside Dr Abbott at bedside discussing plan of care with patient. No new orders at this time.
--- NOTE | 2020-09-03 12:24 | NUR ---
Nutrition Assessment Note please see attached link for complete assessment [employer] needs ABW [id number] kcals (17-20 kcal/kgABW), Est Protein needs: 109-119 gms/day (1.0-1.1 gm/kgABW) Will continue to monitor and reassess prn. Addendum: 09/03/20 at [address] Amended: Links added.
[2020-09-03 13:00] VITALS: BP 116/80
--- NOTE | 2020-09-03 15:05 | NUR ---
Called Left message with Dr. Branch answering service regarding consult.
--- NOTE | 2020-09-03 16:35 | NUR ---
Seizure Notified by Ariadne evans, that Patient began to have seizure, placed on 15L oxygen via mask. pressurised container filler, Tan, and Dr. Saucedo at bedside. Seizure ended at 1654. VS as follows: temperature 99degrees F, HR 99,BP 116/77, RR 22, SpO2 97%. Seizure precautions in place, nathan at bedside. See EMAR. Addendum: 09/03/20 at 1713 by MALLIKA ROMAN RN RN Correction: Seizure like activity. Patient is AOx1. Addendum: 09/03/20 at 1754 by MALLIKA ROMAN RN RN Code assist called-cancelled by Dr. Saucedo.
[2020-09-03] MEDS: LORazepam 2MG/ML-1ML VIAL IV PRN ×2 (16:37→16:42)
--- NOTE | 2020-09-03 17:20 | NUR ---
New IV New IV placed on left FA, 22 gauge. Placed by charge histotechnologist, Tan.
[2020-09-03 17:21] VITALS: BP 116/77
--- NOTE | 2020-09-03 17:50 | NUR ---
Telepsych Patient currently on video call with psychologist. MD given update and reason for consult, all questions answered.
--- NOTE | 2020-09-03 18:17 | NUR ---
Patient Rounds Patient shows no signs of distress at this time, respirations even and unlabored. Patient is AOx4. Sitter at bedside. Safety precautions/seizure precautions in place. Will continue to monitor q1hr and PRN.
[2020-09-03] MEDS: levoFLOXacin 500MG 100 ML IV SCH (18:28)
--- NOTE | 2020-09-03 19:40 | NUR ---
OPEN NOTE assumed care of pt, upon entering room sitter at bedside, pt awake and alert. pt on 15L simple mask with no respiratory distress observed or reported. pt oriented to this nurse, updated on plan of care. pt bed locked, low and 2x rails up. call light in reach, rails padded. pt call light in reach, encouraged to call as needed. this nurse to round q1hr and prn.
[2020-09-03 21:00] VITALS: BP 114/68
[2020-09-03] MEDS: OLANZapine 5 MG TAB PO SCH (21:26)
--- NOTE | 2020-09-03 23:45 | NUR ---
Respiratory note: PT SEEN AND ASKED IF HE WOULD LIKE TO WEAR HIS CPAP. PT STATED THAT HE WAS SLEEPING OKAY WITHOUT IT FOR NOW. PT AWARE TO CALL FOR RT IF HE WOULD LIKE TO GO ON LATER IN THE NIGHT. NO DISTRESS NOTED, THE PT WAS SLEEPING WHEN ENTERING THE ROOM. SP02 100% ON 6L SIMPLE MASK.
[2020-09-04 01:41] VITALS: BP 114/68
[2020-09-04 05:50] LABS: Basophils # (auto) 0.2 10 ^3/uL (0-0.2); Basophils % (auto) 1.5 % (0.0-2.0); Eosinophils # (auto) 0.1 10 ^3/uL (0-0.8); Eosinophils % (auto) 0.6 % (0.0-7.0); Hemoglobin 11.2 g/dL (13.5-17.5); Mean Corpuscular Hemoglobin 31.7 pg (28.0-32.0); Monocytes # (auto) 1.3 10 ^3/uL (0-1.3); Monocytes % (auto) 8.7 % (0.0-12.0); Neutrophils # (auto) 9.9 10 ^3/uL (1.6-8.6); Neutrophils % (auto) 68.2 % (37.0-80.0); Nucleated Red Blood Cells % 0.1 %; Platelet Count (auto) 370 10^3/uL (140-450); Red Blood Cells 3.54 10^6/uL (4.5-5.90); Red Cell Distribution Width 13.8 % (11.8-14.3); White Blood Cell 14.5 10^3/uL (4.4-10.8)
[2020-09-04 06:08] LABS: Potassium 3.8 mmol/L (3.5-5.1)
[2020-09-04 06:21] LABS: Albumin 2.9 g/dL (3.4-5.0); BUN/Creatinine Ratio 15.5; Bilirubin, Total 0.2 mg/dL (0.2-1.0); Total Protein 6.8 g/dL (6.4-8.2)
--- NOTE | 2020-09-04 06:25 | NUR ---
called telepsych for copy of report. s3b multi sensor operator stated copy would be sent via fax number provided by this nurse.
--- NOTE | 2020-09-04 07:05 | NUR ---
Respiratory note: WENT IN TO ROOM TO ASSESS PATIENT PT WAS ASLEEP, NO RESP DISTRESS NOTED. HR 88, RR 18, SPO2 96% ON 6L SIMPLE MASK. SITTER AT BEDSIDE.
--- NOTE | 2020-09-04 07:30 | NUR ---
Opening Shift Note Assumed patient care from NOC RN. Patient currently laying in bed HOB elevated 30 degrees, no signs of distress at this time. Sitter is at bedside, safety precautions including seizure precautions in place. Will continue to monitor q1hr and PRN.
--- NOTE | 2020-09-04 07:40 | NUR ---
Smoking Notified by sitter that patient was "smoking a vape." Patient educated on safety, risks, and need to refrain from smoking inside hospital. Patient verbalized understanding, patient's vape placed in drawer, charge accounts audit clerk, brianne Mathur.
[2020-09-04] MEDS: MORPHINE SULF INJ 2 MG/ML SYRINGE 1ML IV PRN ×3 (08:33→20:34)
[2020-09-04 09:00] VITALS: BP 109/67
--- NOTE | 2020-09-04 09:00 | NUR ---
Ortho at bedside
--- NOTE | 2020-09-04 09:50 | NUR ---
Radiology Received call from surfacing technician regarding patient's CT scan. processing technician notified that patient has two 22g IV to left FA, unable to obtain a 20 gauge at this time. Per radiology, attempt to obtain midline for CT; will attempt to obtain a midline. Paged stress lab for PICC.
--- NOTE | 2020-09-04 09:55 | NUR ---
Srinivasa WILSON Paged Dr. Abbott regarding order for midline for CT. Per dish technician, patient requires 20g IV or midline/PICC line for contrast; patient currently has two 22g IV on left forearm-unable to obtain 20g IV at this time.
[2020-09-04] MEDS: PANTOPRAZOLE 40 MG TAB PO SCH (10:05)
[2020-09-04] MEDS: GABAPENTIN 300 MG CAP PO SCH ×2 (10:05→21:41)
[2020-09-04] MEDS: DULoxetine HCL 30 MG CAP PO SCH (10:05)
[2020-09-04] MEDS: predniSONE 20 MG TAB PO SCH (10:06)
[2020-09-04] MEDS: ATENOLOL 25 MG TAB PO SCH ×2 (10:06→21:43)
[2020-09-04] MEDS: THIAMINE 100mg/ml INJ (200mg/2ml VIAL) IV SCH (10:06)
[2020-09-04] MEDS: ENOXAPARIN SOD 40 MG/0.4 ML SYRINGE SC SCH (10:07)
[2020-09-04] MEDS: HYDROcodone-ACET 5/325MG TAB PO PRN ×2 (10:48→16:07)
--- NOTE | 2020-09-04 11:41 | NUR ---
at Bedside Dr. Abbott at bedside discussing plan of care with patient. New orders obtained.
[2020-09-04 13:00] VITALS: BP 103/71
--- NOTE | 2020-09-04 14:06 | NUR ---
Jose Tejeda Spoke with supervisor steffen house, Shea. Per Shea, will notify PICC RN for midline placement for patient's CT scan.
--- NOTE | 2020-09-04 16:25 | NUR ---
Paged PICC RN Paged PICC RN regarding midline for CT scan. Will await call back.
--- NOTE | 2020-09-04 16:42 | NUR ---
PICC RN at Bedside PICC RN, Radha at bedside. Per RN, will attempt an ultrasound guided 20g at this time.
--- NOTE | 2020-09-04 17:12 | NUR ---
20 G LEFT UPPER ARM IV OBTAINED X1 ATTEMPT. ASPIRATES BLOOD AND FLUSHES EASILY. PRIMARY RN NOTIFIED PT IS NOT A MIDLINE CANDIDATE. IF PT NEEDS FURTHER ACCESS, CONSIDER PICC LINE.
[2020-09-04] MEDS ORDERED: IOHEXOL 300 MG/ML 100ML BOTTLE IJ ONE (17:39)
--- NOTE | 2020-09-04 17:50 | NUR ---
Off Unit Patient off unit for CT.
--- NOTE | 2020-09-04 17:57 | NUR ---
Radiology Received call from radiology. CT unable to be performed at this time due to 20g left upper arm IV infiltration when flushed.
[2020-09-04 18:00] VITALS: BP 111/61
[2020-09-04] MEDS: levoFLOXacin 500MG 100 ML IV SCH (18:00)
--- NOTE | 2020-09-04 19:00 | NUR ---
Opening Shift Note Assumed care of patient from day shift RN, awake and alert and oriented x4. No S/S of distress/SOB or pain. Instructed on POC and to call for assist PRN, safety measures in place call light with in reach, side rails up x2 and bed in lowest position side rails padded and seizure precautions in place patient also has sitter at bedside. will continue to monitor for changes Q1hr and PRN.
--- NOTE | 2020-09-04 20:34 | NUR ---
patient complained of 10/10 pain to back administered pain medication at this time.
[2020-09-04] MEDS: OLANZapine 5 MG TAB PO SCH (21:41)
--- NOTE | 2020-09-04 23:15 | NUR ---
PAGED TO BEDSIDE FOR CPAP PLACEMENT PER PT REQUEST. WHILE SETTING UP FOR PLACEMENT, PT EXPLAINED THERE IS SOMETHING WRONG WITH HIS IV SITE JUST NOW. MAYO LANGE NOTIFIED MY CARBIDE OPERATOR ELISEO TO ASSESS PTS IV SITE. PT WOULD LIKE FOR RN TO CHECK OUT HIS IV SITE BEFORE I PLACE HIM ON CPAP. WILL RETURN TO PLACE PT ON.
--- NOTE | 2020-09-04 23:30 | NUR ---
IV removal IV's to left forearm DC'd with clean sterile technique, catheter fully intact. Pressure dressing applied to site. Patient tolerated well. IV insertion IV access obtained, via clean sterile technique by inserting 20 gauge catheter at left hand after 1 attempt(s). IV secured properly. No trauma to site. Patient tolerated well.
--- NOTE | 2020-09-04 23:40 | NUR ---
PLACED PT ON CPAP. CPAP UNIT CONNECTED TO RED OUTLET, CONTINUOS POX AT BEDSIDE PER PROTOCOL. POX PROBE ON RIGHT INDEX FINGER. CPAP WATER CHAMBER FILLED TO ADEQUATE LEVEL. NO BREAKDOWN NOTED PRIOR TO PLACEMENT. SITTER AT BEDSIDE. PT AWARE I CAN BE PAGED AT ANY TIME HE EXPERIENCES ANY CONCERN WITH HIS BREATHING OR DEPARTMENT EQUIPMENT. RT NAME AND PAGER ASSIGNMENT WRITTEN ON PTS ROOM BOARD WILL CONTINUE RO MONITOR Q2H. MAYO LANGE AT BEDSIDE AND AWARE OF PLACEMENT.
[2020-09-05] MEDS: HYDROcodone-ACET 5/325MG TAB PO PRN ×3 (00:08→22:03)
--- NOTE | 2020-09-05 00:08 | NUR ---
patient complained of 6/10 back pain pain medication administered.
--- NOTE | 2020-09-05 00:20 | NUR ---
Tele monitor called to inform of a 4 second pause. Assessed patient, patient alert awake and oriented no complain of distress at this time checked leads and monitor patient is normal sinus rhythm 78. will continue to monitor patient. Will inform hospitalist.
--- NOTE | 2020-09-05 01:08 | NUR ---
patient states 2/10 pain and states he is comfortable.
[2020-09-05] MEDS: LORazepam 2MG/ML-1ML VIAL IV PRN ×2 (02:05→18:00)
--- NOTE | 2020-09-05 02:05 | NUR ---
Sitter reported patient having seizure. patient had uncontrolled movements in bed. Seizure that began at 0205. Ativan 2mg administered x1 at 0210. seizure stopped at 0212. Bp124/80 Heart rate 88 02 sat 95% respiratory rate 18. Respiratory Therapist came and assessed patient 02 patient saturation at 95% removed cpap. Patient is on continuous 02 sat monitoring patients 02 was at 89% administered 02 via face mask at 4 liters. grid trimmer aware. Hospitalist aware.
--- NOTE | 2020-09-05 02:35 | NUR ---
Hospitalist called back reported patient had two episodes of heart rate dropping in the 30's and one episode of a 4sec pause. Sitter reported patient having seizure. patient had uncontrolled movements in bed. Seizure that began at 0205. Ativan 2mg administered x1 at 0210. seizure stopped at 0212. Bp124/80 Heart rate 88 02 sat 95% respiratory rate 18. Respiratory Therapist came and assessed patient. lye machine operator aware. No new orders at this time.
[2020-09-05] MEDS: MORPHINE SULF INJ 2 MG/ML SYRINGE 1ML IV PRN ×4 (03:40→18:56)
--- NOTE | 2020-09-05 03:40 | NUR ---
patient complained of 10/10 pain to back. pain medication administered.
--- NOTE | 2020-09-05 04:10 | NUR ---
reassessed pain patient states pain 2/10 to back at this time. states he is comfortable.
[2020-09-05 05:00] VITALS: BP 108/80
[2020-09-05 09:00] VITALS: BP 102/57
--- NOTE | 2020-09-05 09:41 | NUR ---
Unable to get IV access for CT abdomen with contrast, PICC line nurse aware.
--- NOTE | 2020-09-05 09:48 | NUR ---
Called material [phone], will deliver arm sling.
--- NOTE | 2020-09-05 10:31 | NUR ---
Placed a arm sling on patient.
--- NOTE | 2020-09-05 11:00 | NUR ---
Midline Placement: Patient educated on need for midline placement. All risks and benefits explained and all questions and concerns addresses prior to procedure. 18g/10cm midline inserted via LEFT BRACHIAL vein using Ultrasound. Sterile technique utilized. Blood return obtained from THE SINGLE lumen and flushed easily with NS using proper technique. Midline secured with saline lock; biodisc and occlusive dressing applied. Primary RN ZEUS notified. Midline lot # [id number]
[2020-09-05] MEDS: THIAMINE 100mg/ml INJ (200mg/2ml VIAL) IV SCH (11:36)
[2020-09-05] MEDS: PANTOPRAZOLE 40 MG TAB PO SCH (11:37)
[2020-09-05] MEDS: GABAPENTIN 300 MG CAP PO SCH ×2 (11:37→22:01)
[2020-09-05] MEDS: predniSONE 20 MG TAB PO SCH (11:37)
[2020-09-05] MEDS: DULoxetine HCL 30 MG CAP PO SCH (11:37)
[2020-09-05] MEDS: ENOXAPARIN SOD 40 MG/0.4 ML SYRINGE SC SCH (11:37)
[2020-09-05] MEDS: ATENOLOL 25 MG TAB PO SCH ×2 (11:38→22:00)
[2020-09-05 13:00] VITALS: BP 114/72
[2020-09-05 17:00] VITALS: BP 110/66
[2020-09-05] MEDS: levoFLOXacin 500MG 100 ML IV SCH (17:53)
--- NOTE | 2020-09-05 19:35 | NUR ---
Opening Shift Note Assumed care of patient. Awake, alert and oriented x4. No S/S of distress/SOB or pain at this time. Pt is laying down in bed, on room air, O2 sat 95%, with even and unlabored respirations. Sitter is at bedside, seizure precautions in place. Instructed on POC and to call for assist PRN. Bed locked, in lowest position, call light within reach, side rails up x2. Will continue to monitor for changes Q1hr and PRN.
--- NOTE | 2020-09-05 19:37 | NUR ---
Dr. Saucedo at bedside Notified him of pts seizure activity last night. No new orders received. Will continue to monitor
[2020-09-05 21:53] VITALS: BP 109/68
[2020-09-05] MEDS: OLANZapine 5 MG TAB PO SCH (22:02)
[2020-09-06 05:12] VITALS: BP 119/75
[2020-09-06] MEDS: HYDROcodone-ACET 5/325MG TAB PO PRN ×2 (05:39→12:15)
[2020-09-06 06:22] LABS: Basophils # (auto) 0.1 10 ^3/uL (0-0.2); Eosinophils # (auto) 0.1 10 ^3/uL (0-0.8); Eosinophils % (auto) 0.4 % (0.0-7.0); Hematocrit 37.7 % (41.0-53.0); Hemoglobin 12.8 g/dL (13.5-17.5); Lymphocytes # (auto) 2.4 10 ^3/uL (0.4-5.4); Lymphocytes % (auto) 16.7 % (10.0-50.0); Mean Corpuscular Hemoglobin 32.7 pg (28.0-32.0); Mean Corpuscular Hgb Conc. 34.1 g/dL (32.0-36.0); Mean Corpuscular Volume 96.1 fL (80.0-100.0); Monocytes # (auto) 1.1 10 ^3/uL (0-1.3); Monocytes % (auto) 7.4 % (0.0-12.0); Neutrophils # (auto) 10.8 10 ^3/uL (1.6-8.6); Neutrophils % (auto) 74.5 % (37.0-80.0); Nucleated Red Blood Cells % 0.1 %; Platelet Count (auto) 411 10^3/uL (140-450); Red Blood Cells 3.92 10^6/uL (4.5-5.90); Red Cell Distribution Width 13.7 % (11.8-14.3); White Blood Cell 14.5 10^3/uL (4.4-10.8)
[2020-09-06 08:12] LABS: BUN/Creatinine Ratio 15.2; Calcium 9.2 mg/dL (8.5-10.1); Potassium 3.4 mmol/L (3.5-5.1)
[2020-09-06 09:00] VITALS: BP 121/79
[2020-09-06] MEDS: predniSONE 20 MG TAB PO SCH (09:42)
[2020-09-06] MEDS: GABAPENTIN 300 MG CAP PO SCH (09:42)
[2020-09-06] MEDS: DULoxetine HCL 30 MG CAP PO SCH (09:42)
[2020-09-06] MEDS: THIAMINE 100mg/ml INJ (200mg/2ml VIAL) IV SCH (09:43)
[2020-09-06] MEDS: ATENOLOL 25 MG TAB PO SCH (09:43)
[2020-09-06] MEDS: ENOXAPARIN SOD 40 MG/0.4 ML SYRINGE SC SCH (09:43)
[2020-09-06] MEDS: MORPHINE SULF INJ 2 MG/ML SYRINGE 1ML IV PRN (09:43)
[2020-09-06] MEDS: PANTOPRAZOLE 40 MG TAB PO SCH (09:43)
[2020-09-06 13:47] VITALS: BP 121/79
--- NOTE | 2020-09-06 14:23 | NUR ---
Per SS Bettye, a walker is been delivered at bedside, however, there is no a walker in the room.
--- NOTE | 2020-09-06 15:29 | NUR ---
Spoke to Lesley Franco regarding a walker , [employer] stated SS informed her that patient is wt over 300 Ibs, which the company does not have. However, I informed that pt wt is 299.2 Ibs. [employer] Sutton will delivered today by 5 PM.
--- NOTE | 2020-09-06 17:45 | NUR ---
A walker delivered by Lesley.
--- NOTE | 2020-09-06 17:46 | NUR ---
Discharge instructions given as ordered. Encourage to follow up with PMD (Follow up with Rea Singh in 09/12/20 at 10.45 #[phone] Address : [facility] [address], [place], [address], Follow up with Orthopedics in 1 week for out patient MRI, Follow up with GI in1-2 week) as instructed. All questions and concerns addressed. Patient verbalized understanding. Medication reconciliation form completed and copy given to patient. Home medications held in Pharmacy returned to patient. IV removed with catheter intact, pressure dressing applied. Telemetry unit returned to ICU. Patient taken to vehicle via wheelchair with all personal belongings, accompanied by staff and family member. No distress noted at time of departure.
== END 2020-09-06 17:54 | disposition home or self-care (01) | DRG 100 ==
LOC: ER 16:06 → TELE 16:07 → TELE-CENTR 22:28
PROVIDERS: ADMIT Nurse Practitioner Acute Care; ATTEND Internal Medicine Pulmonary Disease
DX: G40.401 Other generalized epilepsy and epileptic syndromes, not intractable, with status epilepticus (principal); K85.90 Acute pancreatitis without necrosis or infection, unspecified; F06.2 Psychotic disorder with delusions due to known physiological condition; F10.259 Alcohol dependence with alcohol-induced psychotic disorder, unspecified; J45.901 Unspecified asthma with (acute) exacerbation; J98.11 Atelectasis; Z68.41 Body mass index [BMI] 40.0-44.9, adult; J90 Pleural effusion, not elsewhere classified; R65.10 Systemic inflammatory response syndrome (SIRS) of non-infectious origin without acute organ dysfunction; J96.10 Chronic respiratory failure, unspecified whether with hypoxia or hypercapnia; E87.6 Hypokalemia; G47.30 Sleep apnea, unspecified; E66.01 Morbid (severe) obesity due to excess calories; Y90.9 Presence of alcohol in blood, level not specified; F20.9 Schizophrenia, unspecified; D72.829 Elevated white blood cell count, unspecified; Z79.51 Long term (current) use of inhaled steroids; F17.210 Nicotine dependence, cigarettes, uncomplicated; F31.9 Bipolar disorder, unspecified; F43.10 Post-traumatic stress disorder, unspecified; I11.0 Hypertensive heart disease with heart failure; K70.9 Alcoholic liver disease, unspecified; Z79.899 Other long term (current) drug therapy; Z82.49 Family history of ischemic heart disease and other diseases of the circulatory system; F41.9 Anxiety disorder, unspecified; Z88.0 Allergy status to penicillin; F12.10 Cannabis abuse, uncomplicated; Z20.828 Contact with and (suspected) exposure to other viral communicable diseases
CPT/HCPCS: 36415; 70450; 71045; 71260; 72192; 73020; 74177; 80048; 80053; 81001; 82150; 82962; 83690; 83880; 84484; 85025; 85379; 85610; 85730; 87040; 93005; 93306; 93970; 94660; 96365; 96367; 96372; 96375; G0378; J1956; J7060

== ENCOUNTER 2020-09-11 10:00 | Inpatient (IN) | payer MEDICARE, MEDICAID ==
[~2020-09-11] VITALS: Ht 182.9 cm; Wt 135.4 kg
[2020-09-11 10:40] LABS: Basophils # (auto) 0.1 10 ^3/uL (0-0.2); Eosinophils # (auto) 0.4 10 ^3/uL (0-0.8); Hematocrit 36.6 % (41.0-53.0); Hemoglobin 12.1 g/dL (13.5-17.5); Lymphocytes # (auto) 1.7 10 ^3/uL (0.4-5.4); Lymphocytes % (auto) 15.9 % (10.0-50.0); Mean Corpuscular Hemoglobin 31.9 pg (28.0-32.0); Mean Corpuscular Hgb Conc. 33.1 g/dL (32.0-36.0); Mean Corpuscular Volume 96.3 fL (80.0-100.0); Monocytes % (auto) 9.2 % (0.0-12.0); Neutrophils # (auto) 7.3 10 ^3/uL (1.6-8.6); Neutrophils % (auto) 69.9 % (37.0-80.0); Platelet Count (auto) 297 10^3/uL (140-450); Red Cell Distribution Width 14.2 % (11.8-14.3); White Blood Cell 10.4 10^3/uL (4.4-10.8)
[2020-09-11 10:57] LABS: Albumin 3.2 g/dL (3.4-5.0); Anion Gap 4 (5-15); Blood Urea Nitrogen 11 mg/dL (7-18); Calcium 8.8 mg/dL (8.5-10.1); Carbon Dioxide 25 mmol/L (21-32); Chloride 108 mmol/L (98-107); Glucose 97 mg/dL (74-106); Potassium 3.5 mmol/L (3.5-5.1); Sodium 137 mmol/L (136-145)
[2020-09-11 11:03] LABS: Alanine Aminotransferase 36 U/L (16-61); Alkaline Phosphatase 68 U/L (45-117); Aspartate Aminotransferase 24 U/L (15-37); BUN/Creatinine Ratio 16.4; Bilirubin, Total 0.2 mg/dL (0.2-1.0); GFR African American 169 mL/min; GFR Non-African American 140 mL/min; Total Protein 6.8 g/dL (6.4-8.2)
[2020-09-11 11:12] LABS: INR 0.97 (0.9-1.15); Partial Thromboplastin Time 26.9 sec (23.0-31.2)
[2020-09-11 11:39] LABS: Urine Bacteria NONE SEEN /hpf (None Seen); Urine Blood Negative /uL (Negative); Urine Specific Gravity 1.009 (1.001-1.035); Urine WBC <1 /hpf (0 - 3)
[2020-09-11] MEDS ORDERED: MORPHINE SULF INJ 2 MG/ML SYRINGE 1ML IV PRN (15:30)
[2020-09-11] MEDS ORDERED: ACETAMINOPHEN 500 MG TAB PO PRN (15:30)
[2020-09-11] MEDS ORDERED: NITROGLYCERIN 0.4 MG SL TAB SL PRN (15:30)
[2020-09-11] MEDS ORDERED: TEMAZEPAM 15 MG CAP PO PRN (15:30)
[2020-09-11] MEDS ORDERED: LACTULOSE 20Gm/30ML SOLN PO PRN (15:30)
[2020-09-11] MEDS ORDERED: ALBUTEROL SULF 2.5 MG/0.5ML(0.5%) NEB SOLN NEB PRN (15:30)
[2020-09-11] MEDS: PROMETHAZINE HCL 25 MG/ML 1ML IV PRN (17:57)
[2020-09-11] MEDS: MORPHINE SULF INJ 2 MG/ML SYRINGE 1ML IV PRN (17:57)
[2020-09-11] MEDS ORDERED: chlordiazePOXIDE HCL 25 MG CAP PO PRN (18:15)
[2020-09-11] MEDS ORDERED: THIAMINE 100mg/ml INJ (200mg/2ml VIAL) IV ONE (18:15)
[2020-09-11] MEDS: ALBUTEROL SULF 2.5 MG/0.5ML(0.5%) NEB SOLN NEB SCH (18:38)
[2020-09-11] MEDS: IPRATROPIUM BROM 0.5 MG/2.5ML INH SOL NEB SCH (18:38)
--- NOTE | 2020-09-11 20:21 | NUR ---
Telemetry admit from ER TAMIA PLATT admitted to Telemetry unit after SBAR received. Patient oriented to Tiera Smith, primary RN, unit, room, bed, and unit policies regarding patient care and visiting hours. Patient now on continuous telemetry monitoring, tele box # [id number] and telemetry reading on arrival to unit is SR at 91. Patient placed on bedside oxygen, weighed by bedscale and encouraged to call if they need something. All questions and concerns addressed, patient verbalized understanding.
[2020-09-11 20:46] VITALS: BP 129/73
[2020-09-11] MEDS: SODIUM CHLOR 0.9% PF (SALINE LOCK) 10ML VIAL/SYR IV SCH (21:37)
[2020-09-11] MEDS: CARVEDILOL 3.125 MG TAB PO SCH (21:38)
[2020-09-11] MEDS: levETIRAcetam 500 MG TAB PO SCH (21:39)
[2020-09-11] MEDS: GABAPENTIN 300 MG CAP PO SCH (21:39)
[2020-09-11] MEDS: hydrOXYzine 25 MG TAB or CAP PO SCH (21:40)
[2020-09-11] MEDS: OLANZapine 5 MG TAB PO SCH (21:41)
[2020-09-11 22:00] VITALS: BP 144/77
[2020-09-11] MEDS ORDERED: FAMOTIDINE 20 MG TAB PO SCH (22:00)
--- NOTE | 2020-09-11 22:00 | NUR ---
Hospitalist paged Hospitalist was paged at this time. Requesting to have PRN Ativan for seizures on medication list. Patient stated last seizure was about 2 weeks ago while he was here for previous admission, at that time he would have frequent severe seizures, where at one point he fell out of bed during a seizure. No PRN Ativan for seizures on board at this time. awaiting call back.
[2020-09-11] MEDS: traMADol HCL 50 MG TAB PO PRN (22:41)
--- NOTE | 2020-09-11 22:51 | NUR ---
Patient requested Ultram for pain 07/04. Morphine available, discussed pain management and pain severity scale with patient. Patient requesting Ultram for PRN pain medication at this time. Medication given. Will reassess and continue to monitor.
[2020-09-12] MEDS: IPRATROPIUM BROM 0.5 MG/2.5ML INH SOL NEB SCH ×4 (00:08→19:16)
[2020-09-12] MEDS: ALBUTEROL SULF 2.5 MG/0.5ML(0.5%) NEB SOLN NEB SCH ×4 (00:08→19:16)
--- NOTE | 2020-09-12 00:37 | NUR ---
Call back from Hospitalist Received call back from Hospitalist ALEXANDR Duvall. Received orders for PRN Ativan for Seizure precautions. Order verified and input.
[2020-09-12] MEDS ORDERED: LORazepam 2MG/ML-1ML VIAL IV PRN (00:45)
[2020-09-12 01:08] VITALS: BP 144/77
[2020-09-12] MEDS: MORPHINE SULF INJ 2 MG/ML SYRINGE 1ML IV PRN ×5 (04:57→22:20)
--- NOTE | 2020-09-12 04:57 | NUR ---
MRSA swab collected and given to lab per MD order.
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
[2020-09-12 05:00] VITALS: BP 145/97
[2020-09-12] MEDS: hydrOXYzine 25 MG TAB or CAP PO SCH ×3 (05:50→22:19)
[2020-09-12] MEDS: SODIUM CHLOR 0.9% PF (SALINE LOCK) 10ML VIAL/SYR IV SCH ×3 (05:50→22:16)
[2020-09-12 06:36] LABS: Basophils # (auto) 0 10 ^3/uL (0-0.2); Basophils % (auto) 0.3 % (0.0-2.0); Eosinophils # (auto) 0.4 10 ^3/uL (0-0.8); Eosinophils % (auto) 4.8 % (0.0-7.0); Hematocrit 34.3 % (41.0-53.0); Hemoglobin 11.5 g/dL (13.5-17.5); Lymphocytes % (auto) 23.9 % (10.0-50.0); Mean Corpuscular Hemoglobin 32.3 pg (28.0-32.0); Mean Corpuscular Hgb Conc. 33.5 g/dL (32.0-36.0); Mean Corpuscular Volume 96.5 fL (80.0-100.0); Monocytes # (auto) 0.9 10 ^3/uL (0-1.3); Monocytes % (auto) 10.2 % (0.0-12.0); Neutrophils # (auto) 5.1 10 ^3/uL (1.6-8.6); Neutrophils % (auto) 60.8 % (37.0-80.0); Platelet Count (auto) 281 10^3/uL (140-450); Red Blood Cells 3.56 10^6/uL (4.5-5.90); White Blood Cell 8.4 10^3/uL (4.4-10.8)
[2020-09-12 06:54] LABS: Albumin 3.1 g/dL (3.4-5.0); Chloride 109 mmol/L (98-107); Potassium 3.8 mmol/L (3.5-5.1); Sodium 140 mmol/L (136-145)
[2020-09-12 07:03] LABS: Alanine Aminotransferase 47 U/L (16-61); Alkaline Phosphatase 64 U/L (45-117); Anion Gap 5 (5-15); Aspartate Aminotransferase 46 U/L (15-37); BUN/Creatinine Ratio 14.1; Bilirubin, Total 0.2 mg/dL (0.2-1.0); Blood Urea Nitrogen 10 mg/dL (7-18); Calcium 8.6 mg/dL (8.5-10.1); Carbon Dioxide 26 mmol/L (21-32); Cholesterol 177 mg/dL (< 200); GFR African American 158 mL/min; GFR Non-African American 131 mL/min; Glucose 83 mg/dL (74-106); HDL Cholesterol 41 mg/dL (40-59); LDL Cholesterol 109 mg/dL (< 100); Total Protein 6.2 g/dL (6.4-8.2); Triglycerides 165 mg/dL (< 150)
--- NOTE | 2020-09-12 07:50 | NUR ---
OPENING SHIFT NOTE: PATIENT AWAKE IN BED, A/OX4. RESPIRATIONS EVEN AND UNLABORED. SEIZURE PRECAUTIONS IN PLACE. UPDATED ON PLAN OF CARE. PATIENT REPORTING PAIN 5/10, REQUESTING ULTRAM. WILL MEDICATE PER PAIN SCALE. CALL LIGHT WITHIN REACH, WILL CONTINUE TO MONITOR.
[2020-09-12] MEDS: traMADol HCL 50 MG TAB PO PRN ×2 (08:30→15:48)
[2020-09-12 08:45] VITALS: BP 128/81
[2020-09-12] MEDS: ASPirin 81 mg TAB PO SCH (09:27)
[2020-09-12] MEDS: FOLIC ACID 1 MG TAB PO SCH (09:27)
[2020-09-12] MEDS: THIAMINE 100mg/ml INJ (200mg/2ml VIAL) IV SCH (09:27)
[2020-09-12] MEDS: FUROSEMIDE 40 MG/4 ML VIAL IV SCH (09:27)
[2020-09-12] MEDS: LOSARTAN POTASSIUM 50 MG TAB PO SCH (09:28)
[2020-09-12] MEDS: CARVEDILOL 3.125 MG TAB PO SCH ×2 (09:28→22:00)
[2020-09-12] MEDS: DULoxetine HCL 30 MG CAP PO SCH (09:28)
[2020-09-12] MEDS: levETIRAcetam 500 MG TAB PO SCH ×2 (09:28→22:18)
[2020-09-12] MEDS: ENOXAPARIN SOD 40 MG/0.4 ML SYRINGE SC SCH (09:29)
[2020-09-12] MEDS: PANTOPRAZOLE 40 MG TAB PO SCH (09:29)
[2020-09-12] MEDS: GABAPENTIN 300 MG CAP PO SCH ×2 (09:29→22:18)
[2020-09-12] MEDS: POTASSIUM CHL 20 Meq TABLET PO SCH (09:29)
[2020-09-12] MEDS ORDERED: ENALAPRIL MALEATE 2.5 MG TAB PO SCH (10:00)
[2020-09-12] MEDS: PROMETHAZINE HCL 25 MG/ML 1ML IV PRN (12:37)
--- NOTE | 2020-09-12 12:59 | NUR ---
Nutrition Assessment/consult Notes please see attached link for complete assessment Est energy needs ABW 109 [id number] kcals (17-20 kcals/kgABW), Est protein needs: 109-119 gms/day (1.0-1.1 g/kgABW) Will continue to reassess prn Addendum: 09/12/20 at [address] Amended: Links added.
[2020-09-12 13:00] VITALS: BP 119/71
[2020-09-12 17:00] VITALS: BP 106/70
--- NOTE | 2020-09-12 18:32 | NUR ---
CARE ENDORSED TO NOC RN.
--- NOTE | 2020-09-12 19:00 | NUR ---
Opening Shift Note Assumed care of patient after receiving report from day RN. Patient is awake and alert with no S/S of distress/SOB or pain. Call light within reach, HOB in semi fowlers, bed in lowest, locked position x3 side rails with seizure precautions in place. Instructed on POC and to call for assist PRN, will continue to monitor for changes Q1hr and PRN.
[2020-09-12 22:00] VITALS: BP 104/58
[2020-09-12] MEDS: OLANZapine 5 MG TAB PO SCH (22:19)
[2020-09-13] MEDS: IPRATROPIUM BROM 0.5 MG/2.5ML INH SOL NEB SCH ×4 (00:37→19:23)
[2020-09-13] MEDS: ALBUTEROL SULF 2.5 MG/0.5ML(0.5%) NEB SOLN NEB SCH ×4 (00:37→19:23)
--- NOTE | 2020-09-13 04:06 | NUR ---
IV insertion IV access obtained, via clean sterile technique by inserting 22 gauge catheter at left hand after several attempts. IV secured properly. No trauma to site. Patient tolerated well.
[2020-09-13] MEDS: MORPHINE SULF INJ 2 MG/ML SYRINGE 1ML IV PRN ×3 (04:21→20:39)
[2020-09-13 05:00] VITALS: BP 120/74
[2020-09-13] MEDS: SODIUM CHLOR 0.9% PF (SALINE LOCK) 10ML VIAL/SYR IV SCH ×3 (05:52→22:29)
[2020-09-13] MEDS: hydrOXYzine 25 MG TAB or CAP PO SCH ×3 (05:52→22:30)
--- NOTE | 2020-09-13 07:28 | NUR ---
OPENING SHIFT NOTE: PATIENT AWAKE IN BED, PERSONAL BELONGINGS DELIVERED TO BEDSIDE BY THIS RN. PATIENT REMAINS NPO FOR STRESS TEST. VERBALIZED UNDERSTANDING. RESPIRATIONS EVEN AND UNLABORED. TELE MONITOR CONNECTED READING HR 109BPM. FALL PRECAUTIONS IN PLACE, WILL CONTINUE TO MONITOR.
[2020-09-13 07:52] LABS: Basophils # (auto) 0 10 ^3/uL (0-0.2); Basophils % (auto) 0.3 % (0.0-2.0); Eosinophils # (auto) 0.4 10 ^3/uL (0-0.8); Eosinophils % (auto) 4.5 % (0.0-7.0); Hematocrit 35.8 % (41.0-53.0); Lymphocytes # (auto) 1.9 10 ^3/uL (0.4-5.4); Lymphocytes % (auto) 24.2 % (10.0-50.0); Mean Corpuscular Hemoglobin 32.1 pg (28.0-32.0); Mean Corpuscular Hgb Conc. 33.5 g/dL (32.0-36.0); Mean Corpuscular Volume 95.6 fL (80.0-100.0); Monocytes # (auto) 0.9 10 ^3/uL (0-1.3); Monocytes % (auto) 10.8 % (0.0-12.0); Neutrophils # (auto) 4.8 10 ^3/uL (1.6-8.6); Neutrophils % (auto) 60.2 % (37.0-80.0); Platelet Count (auto) 287 10^3/uL (140-450); Red Blood Cells 3.74 10^6/uL (4.5-5.90); Red Cell Distribution Width 14.4 % (11.8-14.3)
[2020-09-13 08:00] VITALS: BP 131/92
[2020-09-13 08:02] LABS: Potassium 3.6 mmol/L (3.5-5.1)
[2020-09-13 08:11] LABS: BUN/Creatinine Ratio 16.4; Calcium 9.1 mg/dL (8.5-10.1)
[2020-09-13] MEDS ORDERED: ADENOSINE 115 MG in GIVE UN-DILUTED 0 ML IV STA (08:27)
[2020-09-13] MEDS: THIAMINE 100mg/ml INJ (200mg/2ml VIAL) IV SCH (09:26)
[2020-09-13] MEDS: CARVEDILOL 3.125 MG TAB PO SCH ×2 (09:29→22:29)
[2020-09-13] MEDS: ASPirin 81 mg TAB PO SCH (09:29)
[2020-09-13] MEDS: FUROSEMIDE 40 MG/4 ML VIAL IV SCH (09:29)
[2020-09-13] MEDS: FOLIC ACID 1 MG TAB PO SCH (09:29)
[2020-09-13] MEDS: LOSARTAN POTASSIUM 50 MG TAB PO SCH (09:30)
[2020-09-13] MEDS: levETIRAcetam 500 MG TAB PO SCH ×2 (09:31→22:29)
[2020-09-13] MEDS: POTASSIUM CHL 20 Meq TABLET PO SCH (09:31)
[2020-09-13] MEDS: GABAPENTIN 300 MG CAP PO SCH ×2 (09:31→22:29)
[2020-09-13] MEDS: PANTOPRAZOLE 40 MG TAB PO SCH (09:31)
[2020-09-13] MEDS: DULoxetine HCL 30 MG CAP PO SCH (09:31)
[2020-09-13] MEDS: ENOXAPARIN SOD 40 MG/0.4 ML SYRINGE SC SCH (09:32)
[2020-09-13 10:25] VITALS: BP 119/89
--- NOTE | 2020-09-13 11:12 | NUR ---
PATIENT BACK IN ROOM FROM STRESS TEST.
[2020-09-13 12:00] VITALS: BP 127/78
[2020-09-13] MEDS: PROMETHAZINE HCL 25 MG/ML 1ML IV PRN (12:43)
--- NOTE | 2020-09-13 15:01 | NUR ---
CONSENT SIGNED AND PLACED IN THE HARD CHART FOR LEFT HEART CATH.
[2020-09-13] MEDS: traMADol HCL 50 MG TAB PO PRN (15:30)
--- NOTE | 2020-09-13 16:26 | NUR ---
12- LEAD EKG DONE AND PLACED IN THE HARD CHART
[2020-09-13 17:00] VITALS: BP 118/73
--- NOTE | 2020-09-13 18:40 | NUR ---
CARE ENDORSED TO THE NOC RN.
--- NOTE | 2020-09-13 19:00 | NUR ---
Opening Shift Note Assumed care of patient, awake and alert X4. Forgetful. On seizure precaution. Fall precaution. Pain management. Inform to patient on NPO after midnight for Left heart cath. No S/S of distress/SOB or pain. Instructed on POC and to callfor assist PRN, will continue to monitor for changes Q1hr and PRN. patient agreed and verbalized understanding.
[2020-09-13 22:00] VITALS: BP 111/68
[2020-09-13] MEDS: OLANZapine 5 MG TAB PO SCH (22:30)
--- NOTE | 2020-09-13 23:05 | NUR ---
Patient requested and gave sleeping pills as per md ordered.pls see emar. will continue to monitor patient.
[2020-09-14] VITALS (12 sets, daily range): BP systolic 104–123; BP diastolic 49–82
[2020-09-14] MEDS: ALBUTEROL SULF 2.5 MG/0.5ML(0.5%) NEB SOLN NEB SCH ×4 (00:32→19:13)
[2020-09-14] MEDS: IPRATROPIUM BROM 0.5 MG/2.5ML INH SOL NEB SCH ×4 (00:32→19:13)
[2020-09-14] MEDS: hydrOXYzine 25 MG TAB or CAP PO SCH ×3 (06:00→21:40)
[2020-09-14 06:12] LABS: Basophils # (auto) 0 10 ^3/uL (0-0.2); Basophils % (auto) 0.3 % (0.0-2.0); Eosinophils # (auto) 0.5 10 ^3/uL (0-0.8); Eosinophils % (auto) 6.3 % (0.0-7.0); Hematocrit 35.9 % (41.0-53.0); Lymphocytes % (auto) 24.1 % (10.0-50.0); Mean Corpuscular Hemoglobin 31.7 pg (28.0-32.0); Mean Corpuscular Hgb Conc. 33.4 g/dL (32.0-36.0); Mean Corpuscular Volume 95.2 fL (80.0-100.0); Monocytes # (auto) 0.9 10 ^3/uL (0-1.3); Monocytes % (auto) 10.9 % (0.0-12.0); Neutrophils % (auto) 58.4 % (37.0-80.0); Platelet Count (auto) 280 10^3/uL (140-450); Red Blood Cells 3.77 10^6/uL (4.5-5.90); Red Cell Distribution Width 14.3 % (11.8-14.3); White Blood Cell 8.5 10^3/uL (4.4-10.8)
[2020-09-14 06:24] LABS: INR 0.98 (0.9-1.15); Partial Thromboplastin Time 27.4 sec (23.0-31.2)
[2020-09-14 06:28] LABS: Potassium 3.7 mmol/L (3.5-5.1)
[2020-09-14] MEDS: MORPHINE SULF INJ 2 MG/ML SYRINGE 1ML IV PRN ×4 (06:31→20:24)
[2020-09-14 06:37] LABS: BUN/Creatinine Ratio 17.7
[2020-09-14 06:38] LABS: Calcium 8.9 mg/dL (8.5-10.1)
--- NOTE | 2020-09-14 06:52 | NUR ---
CHG wipes for the patient done. total linen and gown change. tolerated.
--- NOTE | 2020-09-14 07:02 | NUR ---
Closing shift event Patient resting in bed. No sob, no chest pain, no acute distress seen. Bed in low locked position, call light within reach, non skid socks on. bed alarm on. Seizure precaution.
[2020-09-14] MEDS: ENOXAPARIN SOD 40 MG/0.4 ML SYRINGE SC SCH (07:22)
[2020-09-14] MEDS: ASPirin 81 mg TAB PO SCH (08:33)
[2020-09-14] MEDS: FUROSEMIDE 40 MG/4 ML VIAL IV SCH (08:53)
[2020-09-14] MEDS: DULoxetine HCL 30 MG CAP PO SCH (08:54)
[2020-09-14] MEDS: POTASSIUM CHL 20 Meq TABLET PO SCH (08:54)
[2020-09-14] MEDS: THIAMINE 100mg/ml INJ (200mg/2ml VIAL) IV SCH (08:54)
[2020-09-14] MEDS: levETIRAcetam 500 MG TAB PO SCH ×2 (08:54→21:39)
[2020-09-14] MEDS: GABAPENTIN 300 MG CAP PO SCH ×2 (08:55→21:38)
[2020-09-14] MEDS: PANTOPRAZOLE 40 MG TAB PO SCH (09:13)
[2020-09-14] MEDS: FOLIC ACID 1 MG TAB PO SCH (09:13)
[2020-09-14] MEDS: LOSARTAN POTASSIUM 50 MG TAB PO SCH (10:00)
[2020-09-14] MEDS: CARVEDILOL 3.125 MG TAB PO SCH ×2 (10:00→21:39)
--- NOTE | 2020-09-14 11:15 | NUR ---
PATIENT TAKEN TO FLAT KNITTER FOR A PROCEDURE.
--- NOTE | 2020-09-14 12:00 | NUR ---
Pt. awake, alert, oriented to person, place, time and event; states he is clear-headed and denies feeling drowsy. Dr. Conklin at bedside instructing pt. re: heart cath procedure and importance of need; pt. is compliant, verbalized understanding and is in agreement and would like to sign procedure consents.
--- NOTE | 2020-09-14 12:05 | NUR ---
NS lock IV started in RIGHT inner aspect forearm with 20G Angiocath; tolerated procedure well.
--- NOTE | 2020-09-14 12:05 | NUR ---
The patient is a 40-year-old male. Patient is alert, oriented and cognitive abilities are intact. Prior to admission patient states he lives with his . Patient states that shortness of breath, back pain and swelling of his lower legs are the primary reason for coming to [facility]. Patient states that he struggles with smoking cigarettes, heavy alcohol drinking and cannabis abuse. Patient past psychological history includes schizophrenia, bipolar disorder, psychotic episodes, and PTSD. Patient medical history includes: asthma, hypertension, GERD, and seizure disorder. Patient decline for any home health assistance need. Post discharge patient states that he will return home to his , and they have transportation for his to take him home. Patient states that his is his support system. Intervention goals: SW to provide information to patient counseling information for mental illness (suggested therapy: psychotherapy). SW to provide information to patient for alcohol and substance abuse. Patient receptive on receiving information about both treatment programs. Addendum: 09/14/20 at 1206 by ANDRIA GOOD SS Amended: Links added.
[2020-09-14] MEDS ORDERED: LIDOCAINE 2%HCL (LOCAL ANESTH.) INJ 20ML MDV ONE (12:52)
[2020-09-14] MEDS ORDERED: IODIXANOL 320MG/ML 100ML BTL IV ONE (12:52)
[2020-09-14] MEDS ORDERED: MIDAZOLAM HCL 1MG/1ML-2 ML VIAL ONE (13:09)
[2020-09-14] MEDS ORDERED: VERAPAMIL 2.5MG/ML INJ 2ML VIAL IV ONE (13:09)
[2020-09-14] MEDS ORDERED: ANGIOMAX 250 MG VIAL IV ONE (13:09)
[2020-09-14] MEDS ORDERED: SODIUM CHL 0.9% 0 ML ONE (13:09)
[2020-09-14] MEDS ORDERED: fentaNYL CITRATE 100 MCG/2 ML VL ONE (13:09)
[2020-09-14] MEDS ORDERED: HEPARIN SODIUM (PORCINE) 5000 UNITS/ML 1ML VIAL ONE (13:33)
[2020-09-14] MEDS: SODIUM CHLOR 0.9% PF (SALINE LOCK) 10ML VIAL/SYR IV SCH ×3 (14:00→21:39)
--- NOTE | 2020-09-14 14:30 | NUR ---
Patient back from solar lab technician with vasoband on left wrist, deflation to start at 1500. V/S 123/71 heart rate 113, RR 17, temp 97.5 o2 sat 96% on RA. Will continue to monitor.
[2020-09-14] MEDS: traMADol HCL 50 MG TAB PO PRN (14:38)
--- NOTE | 2020-09-14 19:30 | NUR ---
Opening Shift Note Assumed care of patient, awake and alert. No S/S of distress/SOB or pain. Instructed on POC and to call for assist PRN, will continue to monitor for changes Q1hr and PRN.
[2020-09-14] MEDS: OLANZapine 5 MG TAB PO SCH (21:40)
[2020-09-14] MEDS: XARELTO 2.5 MG PO SCH ×2 (21:41→22:03)
[2020-09-15] MEDS: IPRATROPIUM BROM 0.5 MG/2.5ML INH SOL NEB SCH ×3 (00:40→11:42)
[2020-09-15] MEDS: ALBUTEROL SULF 2.5 MG/0.5ML(0.5%) NEB SOLN NEB SCH ×4 (00:40→11:42)
[2020-09-15] MEDS: MORPHINE SULF INJ 2 MG/ML SYRINGE 1ML IV PRN ×2 (00:44→08:12)
[2020-09-15 05:00] VITALS: BP 117/63
[2020-09-15] MEDS: SODIUM CHLOR 0.9% PF (SALINE LOCK) 10ML VIAL/SYR IV SCH (05:37)
[2020-09-15] MEDS: hydrOXYzine 25 MG TAB or CAP PO SCH (05:37)
--- NOTE | 2020-09-15 06:24 | NUR ---
PT REFUSED MED NEB AT THIS TIME. PT IS SLEEPING ON RA WITH SPO2 91%, HR 90, RR 18 WITH CLEAR BS NO DISTRESS NOTED. WILL CONTINUE TO MONITOR PT.
[2020-09-15 06:52] LABS: Basophils # (auto) 0 10 ^3/uL (0-0.2); Basophils % (auto) 0.3 % (0.0-2.0); Eosinophils # (auto) 0.6 10 ^3/uL (0-0.8); Hematocrit 37.1 % (41.0-53.0); Hemoglobin 12.4 g/dL (13.5-17.5); Lymphocytes % (auto) 23.1 % (10.0-50.0); Mean Corpuscular Hemoglobin 32.1 pg (28.0-32.0); Mean Corpuscular Hgb Conc. 33.4 g/dL (32.0-36.0); Mean Corpuscular Volume 96.2 fL (80.0-100.0); Monocytes # (auto) 0.9 10 ^3/uL (0-1.3); Monocytes % (auto) 10.5 % (0.0-12.0); Neutrophils # (auto) 5.1 10 ^3/uL (1.6-8.6); Neutrophils % (auto) 59.1 % (37.0-80.0); Platelet Count (auto) 265 10^3/uL (140-450); Red Blood Cells 3.86 10^6/uL (4.5-5.90); Red Cell Distribution Width 14.1 % (11.8-14.3); White Blood Cell 8.6 10^3/uL (4.4-10.8)
[2020-09-15 07:06] LABS: BUN/Creatinine Ratio 19.3; Calcium 9.2 mg/dL (8.5-10.1); Potassium 3.8 mmol/L (3.5-5.1)
--- NOTE | 2020-09-15 07:23 | NUR ---
closing note endorsed care to day RN, no sign of distress at this time
[2020-09-15] MEDS: CARVEDILOL 3.125 MG TAB PO SCH (08:13)
[2020-09-15 09:00] VITALS: BP 137/79
[2020-09-15] MEDS: ASPirin 81 mg TAB PO SCH (10:38)
[2020-09-15] MEDS: POTASSIUM CHL 20 Meq TABLET PO SCH (10:38)
[2020-09-15] MEDS: PANTOPRAZOLE 40 MG TAB PO SCH (10:39)
[2020-09-15] MEDS: GABAPENTIN 300 MG CAP PO SCH (10:39)
[2020-09-15] MEDS: ENOXAPARIN SOD 40 MG/0.4 ML SYRINGE SC SCH (10:40)
[2020-09-15] MEDS: DULoxetine HCL 30 MG CAP PO SCH (10:41)
[2020-09-15] MEDS: FOLIC ACID 1 MG TAB PO SCH (10:41)
[2020-09-15] MEDS: levETIRAcetam 500 MG TAB PO SCH (10:41)
[2020-09-15] MEDS: THIAMINE 100mg/ml INJ (200mg/2ml VIAL) IV SCH (10:42)
[2020-09-15] MEDS: FUROSEMIDE 40 MG/4 ML VIAL IV SCH (10:47)
[2020-09-15] MEDS ORDERED: RIVA20TA PO (11:02)
[2020-09-15] MEDS ORDERED: RIVAROXABAN 10 MG TAB PO SCH (11:06)
[2020-09-15] MEDS: LOSARTAN POTASSIUM 50 MG TAB PO SCH (11:06)
[2020-09-15] MEDS: traMADol HCL 50 MG TAB PO PRN (11:06)
[2020-09-15 13:00] VITALS: BP 112/72
--- NOTE | 2020-09-15 13:23 | NUR ---
Discharge instructions given as ordered. Encourage to follow up with PMD and refrigerator glazier as instructed. All questions and concerns addressed. Patient verbalized understanding. Medication reconciliation form completed and copy given to patient. Home medications held in Pharmacy returned to patient, and no needed vaccines given. IV removed with catheter intact, pressure dressing applied. Telemetry unit returned to ICU. Patient taken to vehicle via wheelchair with all personal belongings, accompanied by staff. No distress noted at time of departure.
== END 2020-09-15 10:23 | disposition home or self-care (01) | DRG 287 ==
LOC: ER 10:00 → TELE 10:01 → TELE-WESTW 20:21
PROVIDERS: ADMIT Internal Medicine; ATTEND Internal Medicine Pulmonary Disease
PROC: 4A023N7 Measurement of Cardiac Sampling and Pressure, Left Heart, Percutaneous Approach (ICD-10-PCS; principal; 2020-09-14)
PROC: B211YZZ Fluoroscopy of Multiple Coronary Arteries using Other Contrast (ICD-10-PCS; 2020-09-14)
PROC: B215YZZ Fluoroscopy of Left Heart using Other Contrast (ICD-10-PCS; 2020-09-14)
DX: I25.41 Coronary artery aneurysm (principal); Z68.41 Body mass index [BMI] 40.0-44.9, adult; I20.9 Angina pectoris, unspecified; J45.909 Unspecified asthma, uncomplicated; I10 Essential (primary) hypertension; K76.0 Fatty (change of) liver, not elsewhere classified; F41.9 Anxiety disorder, unspecified; N20.0 Calculus of kidney; E66.01 Morbid (severe) obesity due to excess calories; E78.5 Hyperlipidemia, unspecified; F12.90 Cannabis use, unspecified, uncomplicated; F17.210 Nicotine dependence, cigarettes, uncomplicated; F20.9 Schizophrenia, unspecified; F31.9 Bipolar disorder, unspecified; F43.10 Post-traumatic stress disorder, unspecified; G40.909 Epilepsy, unspecified, not intractable, without status epilepticus; Z87.19 Personal history of other diseases of the digestive system; K70.9 Alcoholic liver disease, unspecified; Z88.0 Allergy status to penicillin; Z82.49 Family history of ischemic heart disease and other diseases of the circulatory system; Z87.442 Personal history of urinary calculi
CPT/HCPCS: 36415; 71046; 72100; 78452; 80048; 80053; 80061; 81001; 82550; 83735; 83880; 84443; 84484; 85025; 85610; 85730; 86850; 86900; 86901; 87081; 93005; 93017; 93458; 93970; 94640; 99152; G0378; J0153; J2250; Q9967

== ENCOUNTER 2021-02-10 06:12 | Inpatient (IN) | payer MEDICARE, MEDICAID ==
[~2021-02-10] VITALS: Ht 182.9 cm; Wt 157.0 kg
[~2021-02-10 06:12] MED LIST changes: +RIVA20TA PO
[2021-02-10] MEDS ORDERED: MORPHINE SULFATE 4 MG/ML SYR/VIAL IV ONE (08:00)
[2021-02-10] MEDS ORDERED: SODIUM CHLORIDE 0.9% 1,000 ML IV ONE ×2 (08:00)
[2021-02-10] MEDS ORDERED: ONDANSETRON HCL 4 MG/2 ML VIAL IV ONE (08:00)
[2021-02-10 08:24] LABS: Basophils # (auto) 0.1 10 ^3/uL (0-0.2); Basophils % (auto) 0.7 % (0.0-2.0); Eosinophils # (auto) 0.4 10 ^3/uL (0-0.8); Eosinophils % (auto) 2.5 % (0.0-7.0); Hematocrit 37.9 % (41.0-53.0); Hemoglobin 12.8 g/dL (13.5-17.5); Lymphocytes # (auto) 1.2 10 ^3/uL (0.4-5.4); Lymphocytes % (auto) 7.3 % (10.0-50.0); Mean Corpuscular Hemoglobin 32.3 pg (28.0-32.0); Mean Corpuscular Hgb Conc. 33.9 g/dL (32.0-36.0); Mean Corpuscular Volume 95.2 fL (80.0-100.0); Monocytes # (auto) 1.1 10 ^3/uL (0-1.3); Monocytes % (auto) 6.8 % (0.0-12.0); Neutrophils # (auto) 13.6 10 ^3/uL (1.6-8.6); Neutrophils % (auto) 82.7 % (37.0-80.0); Nucleated Red Blood Cells % 0.1 %; Platelet Count (auto) 222 10^3/uL (140-450); Red Blood Cells 3.98 10^6/uL (4.5-5.90); Red Cell Distribution Width 14.1 % (11.8-14.3); White Blood Cell 16.4 10^3/uL (4.4-10.8)
[2021-02-10 08:44] LABS: Albumin 2.7 g/dL (3.4-5.0); Calcium 8.9 mg/dL (8.5-10.1); Potassium 3.5 mmol/L (3.5-5.1)
[2021-02-10 08:47] LABS: BUN/Creatinine Ratio 15.3; Bilirubin, Total 0.8 mg/dL (0.2-1.0); Total Protein 7.4 g/dL (6.4-8.2)
[2021-02-10 10:08] LABS: Urine Bacteria NONE SEEN /hpf (None Seen); Urine Blood Negative /uL (Negative); Urine Mucus FEW (None Seen); Urine WBC 2 /hpf (0 - 3)
[2021-02-10] MEDS ORDERED: HYDROmorphone HCL 2 MG/ML VL IV ONE ×2 (11:45→14:45)
[2021-02-10] MEDS ORDERED: MORPHINE SULF INJ 2 MG/ML SYRINGE 1ML IV PRN ×2 (12:45→14:00)
[2021-02-10] MEDS ORDERED: NITROGLYCERIN 0.4 MG SL TAB SL PRN ×2 (12:45→14:00)
[2021-02-10] MEDS ORDERED: ONDANSETRON HCL 4 MG/2 ML VIAL IV PRN (14:00)
[2021-02-10] MEDS ORDERED: ALUM & MAG HYDROX-SIMETH LIQ(MAALOX) 30 ML PO PRN (14:00)
[2021-02-10] MEDS: SODIUM CHLORIDE 0.9% 1,000 ML IV SCH (14:00)
[2021-02-10] MEDS ORDERED: DOCUSATE SOD 100 MG CAP PO PRN (14:00)
[2021-02-10] MEDS ORDERED: SUCRALFATE 1 GM/10 ML ORAL SUSP PO ONE (14:00)
[2021-02-10] MEDS ORDERED: PANTOPRAZOLE 40 MG/10 ML VIAL INJ IV ONE (14:00)
[2021-02-10] MEDS ORDERED: metroNIDAZOLE 500MG/100ML 100 ML IV ONE (14:00)
[2021-02-10] MEDS ORDERED: ACETAMINOPHEN 325 MG TAB PO PRN (14:00)
[2021-02-10] MEDS ORDERED: levoFLOXacin 750MG 150 ML IV ONE (14:00)
[2021-02-10] MEDS: LACTATED RINGER'S 1,000 ML IV SCH ×2 (14:19→20:40)
[2021-02-10] MEDS ORDERED: IOHEXOL 300 MG/ML 100ML BOTTLE IJ ONE (14:24)
[2021-02-10] MEDS ORDERED: MORPHINE SULFATE 4 MG/ML SYR/VIAL IV PRN (14:45)
[2021-02-10 16:18] LABS: Cholesterol 163 mg/dL (< 200); HDL Cholesterol 35 mg/dL (40-59); LDL Cholesterol 111 mg/dL (< 100); Triglycerides 141 mg/dL (< 150)
[2021-02-10 16:24] LABS: Alcohol, Urine < 3.0 mg/dL (0-10); Amphetamine Screen, Urine NEGATIVE (NEGATIVE); Barbiturate Scree,Urine NEGATIVE (NEGATIVE); Benzodiazephine Screen, Urine NEGATIVE (NEGATIVE); Cannabinoid Screen, Urine POSITIVE (NEGATIVE); Cocaine Screen, Urine NEGATIVE (NEGATIVE); Opiate Scree,Urine NEGATIVE (NEGATIVE); Phencyclidine Screen, Urine NEGATIVE (NEGATIVE)
[2021-02-10] MEDS ORDERED: hydrOXYzine 25 MG TAB or CAP PO PRN (16:45)
[2021-02-10] MEDS: SUCRALFATE 1 GM/10 ML ORAL SUSP PO SCH ×2 (17:00→21:33)
[2021-02-10] MEDS: MORPHINE SULF INJ 2 MG/ML SYRINGE 1ML IV PRN (20:40)
[2021-02-10] MEDS: metroNIDAZOLE 500MG/100ML 100 ML IV SCH (21:32)
[2021-02-10] MEDS: PANTOPRAZOLE 40 MG/10 ML VIAL INJ IV SCH (21:32)
[2021-02-10] MEDS: XARELTO 2.5 MG PO SCH (21:33)
[2021-02-10] MEDS: GABAPENTIN 300 MG CAP PO SCH (21:33)
[2021-02-10] MEDS: levETIRAcetam 500 MG TAB PO SCH (21:33)
[2021-02-10] MEDS: ATORVASTATIN 20 MG TAB PO SCH (21:33)
[2021-02-10] MEDS: HYDROcodone-ACET 5/325MG TAB PO PRN (21:34)
[2021-02-10] MEDS: OLANZapine 5 MG TAB PO SCH (21:34)
[2021-02-10] MEDS: ATENOLOL 25 MG TAB PO SCH (21:34)
[2021-02-10 21:40] VITALS: BP 148/83
[2021-02-11] MEDS: MORPHINE SULF INJ 2 MG/ML SYRINGE 1ML IV PRN ×3 (02:45→15:17)
[2021-02-11] MEDS: HYDROcodone-ACET 5/325MG TAB PO PRN ×4 (04:06→22:37)
[2021-02-11] MEDS: LACTATED RINGER'S 1,000 ML IV SCH ×4 (04:06→23:20)
[2021-02-11 05:36] LABS: Basophils # (auto) 0 10 ^3/uL (0-0.2); Basophils % (auto) 0.2 % (0.0-2.0); Eosinophils # (auto) 0.4 10 ^3/uL (0-0.8); Eosinophils % (auto) 2.9 % (0.0-7.0); Hematocrit 36.4 % (41.0-53.0); Hemoglobin 12.3 g/dL (13.5-17.5); Lymphocytes # (auto) 1.2 10 ^3/uL (0.4-5.4); Lymphocytes % (auto) 8.4 % (10.0-50.0); Mean Corpuscular Hemoglobin 32.9 pg (28.0-32.0); Mean Corpuscular Hgb Conc. 33.8 g/dL (32.0-36.0); Mean Corpuscular Volume 97.4 fL (80.0-100.0); Monocytes % (auto) 6.9 % (0.0-12.0); Neutrophils # (auto) 11.2 10 ^3/uL (1.6-8.6); Neutrophils % (auto) 81.6 % (37.0-80.0); Nucleated Red Blood Cells % 0.1 %; Platelet Count (auto) 208 10^3/uL (140-450); Red Blood Cells 3.74 10^6/uL (4.5-5.90); Red Cell Distribution Width 14.1 % (11.8-14.3); White Blood Cell 13.8 10^3/uL (4.4-10.8)
[2021-02-11 05:47] LABS: INR 1.03 (0.9-1.15)
[2021-02-11] MEDS: metroNIDAZOLE 500MG/100ML 100 ML IV SCH ×3 (05:47→22:00)
[2021-02-11] MEDS: SODIUM CHLORIDE 0.9% 1,000 ML IV SCH ×2 (05:48→23:20)
[2021-02-11 05:54] LABS: Albumin 2.6 g/dL (3.4-5.0); Calcium 8.7 mg/dL (8.5-10.1); Potassium 3.8 mmol/L (3.5-5.1)
[2021-02-11 05:59] LABS: BUN/Creatinine Ratio 11.1; Bilirubin, Total 0.7 mg/dL (0.2-1.0); Phosphorus 3.4 mg/dL (2.5-4.90); Total Protein 7.1 g/dL (6.4-8.2)
[2021-02-11] MEDS: SUCRALFATE 1 GM/10 ML ORAL SUSP PO SCH ×4 (06:32→22:23)
[2021-02-11 08:32] VITALS: BP 134/79
[2021-02-11] MEDS ORDERED: PANTOPRAZOLE 40 MG/10 ML VIAL INJ IV SCH (10:00)
[2021-02-11] MEDS: XARELTO 2.5 MG PO SCH ×2 (10:00→22:00)
[2021-02-11] MEDS: PANTOPRAZOLE 40 MG/10 ML VIAL INJ IV SCH ×2 (11:07→22:00)
[2021-02-11] MEDS: levoFLOXacin 750MG 150 ML IV SCH (11:07)
[2021-02-11] MEDS: GABAPENTIN 300 MG CAP PO SCH ×2 (11:08→22:24)
[2021-02-11] MEDS: DULoxetine HCL 30 MG CAP PO SCH (11:08)
[2021-02-11] MEDS: LOSARTAN POTASSIUM 50 MG TAB PO SCH (11:08)
[2021-02-11] MEDS: levETIRAcetam 500 MG TAB PO SCH ×2 (11:08→22:24)
[2021-02-11] MEDS: ATENOLOL 25 MG TAB PO SCH ×2 (11:09→22:25)
[2021-02-11 12:42] VITALS: BP 113/74
[2021-02-11 17:00] VITALS: BP 127/75
[2021-02-11 22:00] VITALS: BP 155/77
[2021-02-11] MEDS: ATORVASTATIN 20 MG TAB PO SCH (22:24)
[2021-02-11] MEDS: OLANZapine 5 MG TAB PO SCH (22:25)
[2021-02-12] MEDS: MORPHINE SULF INJ 2 MG/ML SYRINGE 1ML IV PRN ×6 (01:16→23:47)
[2021-02-12] MEDS: HYDROcodone-ACET 5/325MG TAB PO PRN ×4 (04:23→21:31)
[2021-02-12 05:00] VITALS: BP 134/87
[2021-02-12 05:39] LABS: Basophils # (auto) 0 10 ^3/uL (0-0.2); Basophils % (auto) 0.1 % (0.0-2.0); Eosinophils # (auto) 0.3 10 ^3/uL (0-0.8); Eosinophils % (auto) 2.4 % (0.0-7.0); Hematocrit 32.9 % (41.0-53.0); Hemoglobin 11.2 g/dL (13.5-17.5); Lymphocytes # (auto) 1.2 10 ^3/uL (0.4-5.4); Lymphocytes % (auto) 10.6 % (10.0-50.0); Mean Corpuscular Hemoglobin 32.7 pg (28.0-32.0); Mean Corpuscular Volume 96.4 fL (80.0-100.0); Monocytes # (auto) 1.4 10 ^3/uL (0-1.3); Monocytes % (auto) 11.7 % (0.0-12.0); Neutrophils # (auto) 8.7 10 ^3/uL (1.6-8.6); Neutrophils % (auto) 75.2 % (37.0-80.0); Nucleated Red Blood Cells % 0.1 %; Platelet Count (auto) 198 10^3/uL (140-450); Red Blood Cells 3.41 10^6/uL (4.5-5.90); Red Cell Distribution Width 13.9 % (11.8-14.3); White Blood Cell 11.6 10^3/uL (4.4-10.8)
[2021-02-12] MEDS: SUCRALFATE 1 GM/10 ML ORAL SUSP PO SCH ×4 (05:51→21:29)
[2021-02-12] MEDS: metroNIDAZOLE 500MG/100ML 100 ML IV SCH ×3 (05:52→21:28)
[2021-02-12] MEDS: LACTATED RINGER'S 1,000 ML IV SCH ×3 (05:52→21:28)
[2021-02-12 06:57] LABS: Albumin 2.3 g/dL (3.4-5.0); BUN/Creatinine Ratio 11.3; Calcium 8.1 mg/dL (8.5-10.1); Potassium 3.5 mmol/L (3.5-5.1)
[2021-02-12 07:00] LABS: Bilirubin, Total 0.9 mg/dL (0.2-1.0); Total Protein 5.9 g/dL (6.4-8.2)
[2021-02-12 09:00] VITALS: BP 131/83
[2021-02-12] MEDS: XARELTO 2.5 MG PO SCH ×2 (10:00→21:29)
[2021-02-12] MEDS: levoFLOXacin 750MG 150 ML IV SCH (10:09)
[2021-02-12] MEDS: PANTOPRAZOLE 40 MG/10 ML VIAL INJ IV SCH ×2 (10:10→21:28)
[2021-02-12] MEDS: LOSARTAN POTASSIUM 50 MG TAB PO SCH (10:11)
[2021-02-12] MEDS: DULoxetine HCL 30 MG CAP PO SCH (10:16)
[2021-02-12] MEDS: GABAPENTIN 300 MG CAP PO SCH ×2 (10:17→21:29)
[2021-02-12] MEDS: levETIRAcetam 500 MG TAB PO SCH ×2 (10:17→21:29)
[2021-02-12] MEDS: ATENOLOL 25 MG TAB PO SCH ×2 (10:18→21:30)
[2021-02-12 12:44] VITALS: BP 143/92
[2021-02-12 16:46] VITALS: BP 137/93
[2021-02-12 20:00] VITALS: BP 150/89
[2021-02-12] MEDS: ATORVASTATIN 20 MG TAB PO SCH (21:29)
[2021-02-12] MEDS: OLANZapine 5 MG TAB PO SCH (21:30)
[2021-02-12 22:00] VITALS: BP 150/89
[2021-02-13] MEDS: HYDROcodone-ACET 5/325MG TAB PO PRN ×5 (01:30→22:14)
[2021-02-13] MEDS: LACTATED RINGER'S 1,000 ML IV SCH ×3 (02:00→21:30)
[2021-02-13 05:00] VITALS: BP 144/105
[2021-02-13] MEDS: metroNIDAZOLE 500MG/100ML 100 ML IV SCH ×3 (05:53→22:15)
[2021-02-13] MEDS: MORPHINE SULF INJ 2 MG/ML SYRINGE 1ML IV PRN ×4 (05:53→19:41)
[2021-02-13] MEDS: SUCRALFATE 1 GM/10 ML ORAL SUSP PO SCH ×4 (06:16→22:10)
[2021-02-13 07:03] LABS: Basophils # (auto) 0 10 ^3/uL (0-0.2); Basophils % (auto) 0.2 % (0.0-2.0); Eosinophils # (auto) 0.4 10 ^3/uL (0-0.8); Eosinophils % (auto) 3.4 % (0.0-7.0); Hematocrit 35.3 % (41.0-53.0); Hemoglobin 12.2 g/dL (13.5-17.5); Lymphocytes # (auto) 0.9 10 ^3/uL (0.4-5.4); Lymphocytes % (auto) 8.3 % (10.0-50.0); Mean Corpuscular Hgb Conc. 34.4 g/dL (32.0-36.0); Monocytes # (auto) 1.2 10 ^3/uL (0-1.3); Monocytes % (auto) 10.5 % (0.0-12.0); Neutrophils # (auto) 8.6 10 ^3/uL (1.6-8.6); Neutrophils % (auto) 77.6 % (37.0-80.0); Platelet Count (auto) 236 10^3/uL (140-450); Red Blood Cells 3.68 10^6/uL (4.5-5.90); Red Cell Distribution Width 13.8 % (11.8-14.3); White Blood Cell 11.1 10^3/uL (4.4-10.8)
[2021-02-13 07:18] LABS: Potassium 3.7 mmol/L (3.5-5.1)
[2021-02-13 07:24] LABS: BUN/Creatinine Ratio 9.1; Calcium 8.8 mg/dL (8.5-10.1)
[2021-02-13] MEDS: levETIRAcetam 500 MG TAB PO SCH ×2 (08:16→22:11)
[2021-02-13] MEDS: GABAPENTIN 300 MG CAP PO SCH ×2 (08:17→22:10)
[2021-02-13] MEDS: levoFLOXacin 750MG 150 ML IV SCH (08:18)
[2021-02-13] MEDS: LOSARTAN POTASSIUM 50 MG TAB PO SCH (08:18)
[2021-02-13] MEDS: PANTOPRAZOLE 40 MG/10 ML VIAL INJ IV SCH ×2 (08:18→22:09)
[2021-02-13] MEDS: DULoxetine HCL 30 MG CAP PO SCH (08:19)
[2021-02-13] MEDS: ATENOLOL 25 MG TAB PO SCH ×2 (08:20→22:11)
[2021-02-13 09:28] VITALS: BP 142/95
[2021-02-13] MEDS: XARELTO 2.5 MG PO SCH ×2 (10:00→22:00)
[2021-02-13 13:00] VITALS: BP 134/97
[2021-02-13] MEDS ORDERED: TPN PER PHARMACY 0 ML IV SCH (15:30)
[2021-02-13 17:00] VITALS: BP 124/88
[2021-02-13] MEDS: InsuLIN REG 1unit/0.01ml Soln (100units/ml) SC SCH (17:39)
[2021-02-13] MEDS: ACCU-CHEK COMFORT CURVE STRIP VI SCH (17:40)
[2021-02-13] MEDS ORDERED: DEXTROSE (50%) 50ML SYRG IV SCH (18:00)
[2021-02-13] MEDS: LORazepam 0.5 MG TAB PO PRN (19:41)
[2021-02-13 20:00] VITALS: BP 142/95
[2021-02-13] MEDS ORDERED: AMINO ACID INFUSION IN D10W 1,000 ML IV NR (20:00)
[2021-02-13 22:00] VITALS: BP 157/106
[2021-02-13] MEDS: hydrALAZINE HCL 20 MG/ML VL IV PRN (22:09)
[2021-02-13] MEDS: ATORVASTATIN 20 MG TAB PO SCH (22:10)
[2021-02-13] MEDS: OLANZapine 5 MG TAB PO SCH (22:13)
[2021-02-14] MEDS: MORPHINE SULF INJ 2 MG/ML SYRINGE 1ML IV PRN ×6 (02:44→22:45)
[2021-02-14 05:00] VITALS: BP 145/89
[2021-02-14] MEDS: SUCRALFATE 1 GM/10 ML ORAL SUSP PO SCH ×4 (05:31→21:29)
[2021-02-14] MEDS: HYDROcodone-ACET 5/325MG TAB PO PRN ×4 (05:31→19:54)
[2021-02-14] MEDS: metroNIDAZOLE 500MG/100ML 100 ML IV SCH ×2 (05:31→13:54)
[2021-02-14 05:41] LABS: Basophils # (auto) 0 10 ^3/uL (0-0.2); Basophils % (auto) 0.2 % (0.0-2.0); Eosinophils # (auto) 0.3 10 ^3/uL (0-0.8); Eosinophils % (auto) 3.6 % (0.0-7.0); Hematocrit 36.6 % (41.0-53.0); Hemoglobin 12.6 g/dL (13.5-17.5); Lymphocytes % (auto) 10.8 % (10.0-50.0); Mean Corpuscular Hemoglobin 32.8 pg (28.0-32.0); Mean Corpuscular Hgb Conc. 34.5 g/dL (32.0-36.0); Mean Corpuscular Volume 95.1 fL (80.0-100.0); Monocytes % (auto) 10.5 % (0.0-12.0); Neutrophils # (auto) 7.1 10 ^3/uL (1.6-8.6); Neutrophils % (auto) 74.9 % (37.0-80.0); Platelet Count (auto) 226 10^3/uL (140-450); Red Blood Cells 3.85 10^6/uL (4.5-5.90); Red Cell Distribution Width 13.9 % (11.8-14.3); White Blood Cell 9.4 10^3/uL (4.4-10.8)
[2021-02-14] MEDS: ACCU-CHEK COMFORT CURVE STRIP VI SCH ×5 (05:46→22:57)
[2021-02-14] MEDS: InsuLIN REG 1unit/0.01ml Soln (100units/ml) SC SCH ×5 (05:46→22:57)
[2021-02-14 05:57] LABS: Albumin 2.5 g/dL (3.4-5.0); Calcium 8.9 mg/dL (8.5-10.1); Potassium 3.2 mmol/L (3.5-5.1)
[2021-02-14 05:58] LABS: Magnesium 1.5 mg/dL (1.6-2.6)
[2021-02-14 06:01] LABS: BUN/Creatinine Ratio 7.7; Bilirubin, Total 0.4 mg/dL (0.2-1.0); Total Protein 7.1 g/dL (6.4-8.2)
[2021-02-14 06:05] LABS: Pre Albumin 9.1 mg/dL (20.0-40.0)
[2021-02-14 08:39] VITALS: BP 148/103
[2021-02-14] MEDS: LOSARTAN POTASSIUM 50 MG TAB PO SCH (09:11)
[2021-02-14] MEDS: PANTOPRAZOLE 40 MG/10 ML VIAL INJ IV SCH ×2 (09:11→21:28)
[2021-02-14] MEDS: levETIRAcetam 500 MG TAB PO SCH ×2 (09:12→21:30)
[2021-02-14] MEDS: GABAPENTIN 300 MG CAP PO SCH ×2 (09:12→21:30)
[2021-02-14] MEDS: levoFLOXacin 750MG 150 ML IV SCH (09:12)
[2021-02-14] MEDS: ATENOLOL 25 MG TAB PO SCH ×2 (09:12→21:32)
[2021-02-14] MEDS: DULoxetine HCL 30 MG CAP PO SCH (09:12)
[2021-02-14] MEDS: LACTATED RINGER'S 1,000 ML IV SCH ×2 (09:26→21:32)
[2021-02-14] MEDS: XARELTO 2.5 MG PO SCH ×2 (10:00→21:29)
[2021-02-14] MEDS: MAGNESIUM SULFATE 1GM/100ML 100 ML IV SCH ×2 (10:30→12:17)
[2021-02-14] MEDS: POTASSIUM CHL 20MEQ/100ML 100 ML IV SCH ×2 (12:43→17:23)
[2021-02-14 12:48] VITALS: BP 145/114
[2021-02-14] MEDS: hydrALAZINE HCL 20 MG/ML VL IV PRN (13:00)
[2021-02-14] MEDS ORDERED: LIDOCAINE 1% (LOCAL ANESTH.) PF 5ml SDV ID ONE (14:45)
[2021-02-14 16:45] VITALS: BP 162/120
[2021-02-14] MEDS ORDERED: MAGNESIUM SULFATE 1GM/100ML 100 ML IV ONE (18:30)
[2021-02-14] MEDS: ERGOCALCIFEROL 50,000 UNIT(1.25MG) CAP PO SCH (18:40)
[2021-02-14] MEDS ORDERED: PPN PER PHARMACY IV NR ×9 (20:00)
[2021-02-14] MEDS: MEROPENEM 1GM IVPB 100 ML IV SCH (20:43)
[2021-02-14] MEDS: SODIUM CHLOR 0.9% PF (SALINE LOCK) 10ML VIAL/SYR IV SCH (21:29)
[2021-02-14] MEDS: ATORVASTATIN 20 MG TAB PO SCH (21:30)
[2021-02-14] MEDS: OLANZapine 5 MG TAB PO SCH (21:32)
[2021-02-14 22:00] VITALS: BP 142/99
[2021-02-15] MEDS: HYDROcodone-ACET 5/325MG TAB PO PRN ×5 (00:41→20:15)
[2021-02-15 05:00] VITALS: BP 135/64
[2021-02-15] MEDS: ACCU-CHEK COMFORT CURVE STRIP VI SCH ×4 (05:14→23:32)
[2021-02-15] MEDS: InsuLIN REG 1unit/0.01ml Soln (100units/ml) SC SCH ×4 (05:14→23:31)
[2021-02-15] MEDS: MEROPENEM 1GM IVPB 100 ML IV SCH ×3 (05:22→22:04)
[2021-02-15 05:40] LABS: Basophils # (auto) 0 10 ^3/uL (0-0.2); Basophils % (auto) 0.3 % (0.0-2.0); Eosinophils # (auto) 0.5 10 ^3/uL (0-0.8); Eosinophils % (auto) 4.6 % (0.0-7.0); Hematocrit 37.5 % (41.0-53.0); Hemoglobin 12.9 g/dL (13.5-17.5); Lymphocytes # (auto) 0.9 10 ^3/uL (0.4-5.4); Mean Corpuscular Hemoglobin 32.5 pg (28.0-32.0); Mean Corpuscular Hgb Conc. 34.3 g/dL (32.0-36.0); Mean Corpuscular Volume 94.7 fL (80.0-100.0); Neutrophils # (auto) 7.4 10 ^3/uL (1.6-8.6); Neutrophils % (auto) 76.1 % (37.0-80.0); Platelet Count (auto) 280 10^3/uL (140-450); Red Blood Cells 3.96 10^6/uL (4.5-5.90); Red Cell Distribution Width 13.9 % (11.8-14.3); White Blood Cell 9.8 10^3/uL (4.4-10.8)
[2021-02-15 05:56] LABS: Magnesium 2.1 mg/dL (1.6-2.6); Potassium 3.4 mmol/L (3.5-5.1)
[2021-02-15 06:01] LABS: Albumin 2.5 g/dL (3.4-5.0); BUN/Creatinine Ratio 7.3; Bilirubin, Total 0.3 mg/dL (0.2-1.0); Calcium 8.9 mg/dL (8.5-10.1); Phosphorus 3.8 mg/dL (2.5-4.90); Total Protein 7.3 g/dL (6.4-8.2)
[2021-02-15] MEDS: MORPHINE SULF INJ 2 MG/ML SYRINGE 1ML IV PRN ×5 (06:08→22:19)
[2021-02-15] MEDS: SUCRALFATE 1 GM/10 ML ORAL SUSP PO SCH ×4 (06:08→22:02)
[2021-02-15 08:28] VITALS: BP 137/85
[2021-02-15] MEDS: PANTOPRAZOLE 40 MG/10 ML VIAL INJ IV SCH ×2 (09:10→22:02)
[2021-02-15] MEDS: SODIUM CHLOR 0.9% PF (SALINE LOCK) 10ML VIAL/SYR IV SCH ×2 (09:11→22:02)
[2021-02-15] MEDS: DULoxetine HCL 30 MG CAP PO SCH (09:12)
[2021-02-15] MEDS: LOSARTAN POTASSIUM 50 MG TAB PO SCH (09:12)
[2021-02-15] MEDS: levETIRAcetam 500 MG TAB PO SCH ×2 (09:12→22:02)
[2021-02-15] MEDS: GABAPENTIN 300 MG CAP PO SCH ×2 (09:13→22:03)
[2021-02-15] MEDS: ATENOLOL 25 MG TAB PO SCH ×2 (09:13→22:03)
[2021-02-15] MEDS: XARELTO 2.5 MG PO SCH (09:14)
[2021-02-15] MEDS ORDERED: POTASSIUM CHL 20MEQ/100ML 100 ML IV ONE (09:15)
[2021-02-15] MEDS ORDERED: ENOXAPARIN SOD 30 MG/0.3 ML SYRINGE SC ONE (10:30)
[2021-02-15] MEDS: LACTATED RINGER'S 1,000 ML IV SCH ×2 (12:12→23:30)
[2021-02-15 13:00] VITALS: BP 129/77
[2021-02-15 16:40] VITALS: BP 128/72
[2021-02-15] MEDS ORDERED: TPN PER PHARMACY IV NR ×10 (20:00)
[2021-02-15 22:00] VITALS: BP 134/96
[2021-02-15] MEDS: ATORVASTATIN 20 MG TAB PO SCH (22:03)
[2021-02-15] MEDS: OLANZapine 5 MG TAB PO SCH (22:04)
[2021-02-16] MEDS: HYDROcodone-ACET 5/325MG TAB PO PRN ×4 (01:11→23:20)
[2021-02-16] MEDS: MORPHINE SULF INJ 2 MG/ML SYRINGE 1ML IV PRN ×4 (04:09→21:33)
[2021-02-16 04:59] VITALS: BP 136/77
[2021-02-16] MEDS: InsuLIN REG 1unit/0.01ml Soln (100units/ml) SC SCH ×4 (06:00→23:21)
[2021-02-16] MEDS: MEROPENEM 1GM IVPB 100 ML IV SCH ×3 (06:02→21:15)
[2021-02-16] MEDS: ACCU-CHEK COMFORT CURVE STRIP VI SCH ×4 (06:02→23:22)
[2021-02-16] MEDS: SUCRALFATE 1 GM/10 ML ORAL SUSP PO SCH ×4 (06:03→21:47)
[2021-02-16 06:21] LABS: Potassium 3.3 mmol/L (3.5-5.1)
[2021-02-16 06:32] LABS: Albumin 2.6 g/dL (3.4-5.0); BUN/Creatinine Ratio 8.1; Bilirubin, Total 0.2 mg/dL (0.2-1.0); Calcium 8.9 mg/dL (8.5-10.1); Phosphorus 3.3 mg/dL (2.5-4.90); Total Protein 7.3 g/dL (6.4-8.2)
[2021-02-16 09:00] VITALS: BP 118/86
[2021-02-16] MEDS ORDERED: POTASSIUM CHLORIDE 60 MEQ, LIDOCAINE 1% (LOCAL ANESTH.) 6 ML in SODIUM CHL 0.9% 500 ML IV ONE (09:30)
[2021-02-16] MEDS ORDERED: POTASSIUM CHL 20MEQ/100ML 100 ML IV SCH (09:45)
[2021-02-16] MEDS: SODIUM CHLOR 0.9% PF (SALINE LOCK) 10ML VIAL/SYR IV SCH ×2 (10:00→21:47)
[2021-02-16] MEDS ORDERED: NICOTINE 14 MG/24HR TOPICAL PATCH TD ONE (11:00)
[2021-02-16] MEDS: PANTOPRAZOLE 40 MG/10 ML VIAL INJ IV SCH ×2 (11:03→21:46)
[2021-02-16] MEDS: ENOXAPARIN SOD 30 MG/0.3 ML SYRINGE SC SCH (11:04)
[2021-02-16] MEDS: levETIRAcetam 500 MG TAB PO SCH ×2 (11:05→21:27)
[2021-02-16] MEDS: LOSARTAN POTASSIUM 50 MG TAB PO SCH (11:06)
[2021-02-16] MEDS: DULoxetine HCL 30 MG CAP PO SCH (11:07)
[2021-02-16] MEDS: GABAPENTIN 300 MG CAP PO SCH ×2 (11:07→21:26)
[2021-02-16] MEDS: ATENOLOL 25 MG TAB PO SCH ×2 (11:08→21:28)
[2021-02-16] MEDS: LACTATED RINGER'S 1,000 ML IV SCH (12:11)
[2021-02-16 13:00] VITALS: BP_SYST 111; BP_SYST 138; BP_DIAS 75; BP_DIAS 94
[2021-02-16 17:00] VITALS: BP 139/91
[2021-02-16] MEDS ORDERED: TPN PER PHARMACY IV NR ×9 (20:00)
[2021-02-16] MEDS: OLANZapine 5 MG TAB PO SCH (21:27)
[2021-02-16] MEDS: ATORVASTATIN 20 MG TAB PO SCH (21:48)
[2021-02-16 22:00] VITALS: BP 103/53
[2021-02-17] MEDS: LACTATED RINGER'S 1,000 ML IV SCH ×2 (01:57→13:52)
[2021-02-17] MEDS: HYDROcodone-ACET 5/325MG TAB PO PRN ×4 (05:35→23:02)
[2021-02-17] MEDS: MEROPENEM 1GM IVPB 100 ML IV SCH ×3 (05:43→22:26)
[2021-02-17] MEDS: InsuLIN REG 1unit/0.01ml Soln (100units/ml) SC SCH ×4 (05:44→23:07)
[2021-02-17] MEDS: ACCU-CHEK COMFORT CURVE STRIP VI SCH ×4 (05:44→23:07)
[2021-02-17 06:29] VITALS: BP 103/85
[2021-02-17] MEDS: SUCRALFATE 1 GM/10 ML ORAL SUSP PO SCH ×4 (07:46→22:27)
[2021-02-17 08:07] LABS: Potassium 4.2 mmol/L (3.5-5.1)
[2021-02-17 08:17] LABS: Albumin 2.5 g/dL (3.4-5.0); BUN/Creatinine Ratio 13.7; Bilirubin, Total 0.2 mg/dL (0.2-1.0); Calcium 8.9 mg/dL (8.5-10.1); Magnesium 2.3 mg/dL (1.6-2.6); Total Protein 7.2 g/dL (6.4-8.2)
[2021-02-17 08:24] VITALS: BP 120/72
[2021-02-17] MEDS: ENOXAPARIN SOD 30 MG/0.3 ML SYRINGE SC SCH (08:50)
[2021-02-17] MEDS: PANTOPRAZOLE 40 MG/10 ML VIAL INJ IV SCH ×2 (08:50→22:26)
[2021-02-17] MEDS: DULoxetine HCL 30 MG CAP PO SCH (08:55)
[2021-02-17] MEDS: NICOTINE 14 MG/24HR TOPICAL PATCH TD SCH (08:55)
[2021-02-17] MEDS: ATENOLOL 25 MG TAB PO SCH ×2 (08:56→22:31)
[2021-02-17] MEDS: levETIRAcetam 500 MG TAB PO SCH ×2 (08:56→22:30)
[2021-02-17] MEDS: GABAPENTIN 300 MG CAP PO SCH ×2 (08:56→22:30)
[2021-02-17] MEDS: LOSARTAN POTASSIUM 50 MG TAB PO SCH (08:57)
[2021-02-17] MEDS: SODIUM CHLOR 0.9% PF (SALINE LOCK) 10ML VIAL/SYR IV SCH ×2 (08:58→22:00)
[2021-02-17] MEDS: MORPHINE SULF INJ 2 MG/ML SYRINGE 1ML IV PRN ×3 (10:02→20:06)
[2021-02-17 12:30] VITALS: BP 146/99
[2021-02-17 17:09] VITALS: BP 117/82
[2021-02-17] MEDS ORDERED: TPN PER PHARMACY IV NR ×9 (20:00)
[2021-02-17 22:00] VITALS: BP 113/86
[2021-02-17] MEDS: LORazepam 0.5 MG TAB PO PRN (22:30)
[2021-02-17] MEDS: OLANZapine 5 MG TAB PO SCH (22:32)
[2021-02-18] MEDS: LACTATED RINGER'S 1,000 ML IV SCH ×2 (01:44→14:17)
[2021-02-18 05:00] VITALS: BP 109/68
[2021-02-18] MEDS: InsuLIN REG 1unit/0.01ml Soln (100units/ml) SC SCH ×2 (06:00→12:00)
[2021-02-18] MEDS: ACCU-CHEK COMFORT CURVE STRIP VI SCH ×2 (06:11→12:25)
[2021-02-18] MEDS: MEROPENEM 1GM IVPB 100 ML IV SCH ×3 (06:11→22:21)
[2021-02-18] MEDS: SUCRALFATE 1 GM/10 ML ORAL SUSP PO SCH ×4 (06:28→22:22)
[2021-02-18] MEDS: HYDROcodone-ACET 5/325MG TAB PO PRN ×4 (06:48→22:24)
[2021-02-18 08:10] VITALS: BP 126/99
[2021-02-18 08:46] LABS: Albumin 2.7 g/dL (3.4-5.0); Magnesium 2.3 mg/dL (1.6-2.6); Potassium 4.2 mmol/L (3.5-5.1)
[2021-02-18 08:49] LABS: BUN/Creatinine Ratio 15.8; Bilirubin, Total 0.2 mg/dL (0.2-1.0); Phosphorus 4.3 mg/dL (2.5-4.90); Total Protein 7.4 g/dL (6.4-8.2)
[2021-02-18] MEDS: ENOXAPARIN SOD 30 MG/0.3 ML SYRINGE SC SCH (09:19)
[2021-02-18] MEDS: MORPHINE SULF INJ 2 MG/ML SYRINGE 1ML IV PRN ×3 (09:19→18:25)
[2021-02-18] MEDS: PANTOPRAZOLE 40 MG/10 ML VIAL INJ IV SCH ×2 (09:19→22:29)
[2021-02-18] MEDS: levETIRAcetam 500 MG TAB PO SCH ×2 (09:20→22:22)
[2021-02-18] MEDS: DULoxetine HCL 30 MG CAP PO SCH (09:20)
[2021-02-18] MEDS: ATENOLOL 25 MG TAB PO SCH ×2 (09:21→22:23)
[2021-02-18] MEDS: GABAPENTIN 300 MG CAP PO SCH ×2 (09:21→22:22)
[2021-02-18] MEDS: NICOTINE 14 MG/24HR TOPICAL PATCH TD SCH (09:22)
[2021-02-18] MEDS: LOSARTAN POTASSIUM 50 MG TAB PO SCH (09:23)
[2021-02-18] MEDS: SODIUM CHLOR 0.9% PF (SALINE LOCK) 10ML VIAL/SYR IV SCH ×2 (09:24→22:22)
[2021-02-18 12:30] VITALS: BP 113/65
[2021-02-18 16:56] VITALS: BP 108/82
[2021-02-18 21:44] VITALS: BP 91/56
[2021-02-18] MEDS: OLANZapine 5 MG TAB PO SCH (22:24)
[2021-02-19] MEDS: MORPHINE SULF INJ 2 MG/ML SYRINGE 1ML IV PRN ×5 (00:09→23:15)
[2021-02-19] MEDS: LORazepam 0.5 MG TAB PO PRN (00:51)
[2021-02-19] MEDS: LACTATED RINGER'S 1,000 ML IV SCH ×2 (02:50→17:17)
[2021-02-19 05:28] VITALS: BP 124/92
[2021-02-19] MEDS: MEROPENEM 1GM IVPB 100 ML IV SCH ×3 (06:40→21:12)
[2021-02-19] MEDS: SUCRALFATE 1 GM/10 ML ORAL SUSP PO SCH ×4 (06:40→21:12)
[2021-02-19] MEDS ORDERED: GABA100C9 PO (07:29)
[2021-02-19 08:30] VITALS: BP 128/54
[2021-02-19] MEDS: NICOTINE 14 MG/24HR TOPICAL PATCH TD SCH (10:05)
[2021-02-19] MEDS: LOSARTAN POTASSIUM 50 MG TAB PO SCH (10:06)
[2021-02-19] MEDS: DULoxetine HCL 30 MG CAP PO SCH (10:07)
[2021-02-19] MEDS: levETIRAcetam 500 MG TAB PO SCH ×2 (10:08→21:13)
[2021-02-19] MEDS: ATENOLOL 25 MG TAB PO SCH ×2 (10:08→21:29)
[2021-02-19] MEDS: GABAPENTIN 300 MG CAP PO SCH ×2 (10:09→21:13)
[2021-02-19] MEDS: ENOXAPARIN SOD 30 MG/0.3 ML SYRINGE SC SCH (10:09)
[2021-02-19] MEDS: PANTOPRAZOLE 40 MG/10 ML VIAL INJ IV SCH ×2 (10:09→21:12)
[2021-02-19] MEDS: SODIUM CHLOR 0.9% PF (SALINE LOCK) 10ML VIAL/SYR IV SCH ×2 (10:10→21:12)
[2021-02-19] MEDS: HYDROcodone-ACET 5/325MG TAB PO PRN ×3 (10:17→21:13)
[2021-02-19 12:09] VITALS: BP 135/78
[2021-02-19 16:30] VITALS: BP 141/73
[2021-02-19] MEDS: OLANZapine 5 MG TAB PO SCH (21:13)
[2021-02-19 22:00] VITALS: BP 122/90
[2021-02-20] MEDS: LACTATED RINGER'S 1,000 ML IV SCH ×2 (04:12→14:07)
[2021-02-20] MEDS: MORPHINE SULF INJ 2 MG/ML SYRINGE 1ML IV PRN ×4 (04:51→19:45)
[2021-02-20 05:23] VITALS: BP 99/66
[2021-02-20] MEDS: HYDROcodone-ACET 5/325MG TAB PO PRN ×3 (05:38→16:22)
[2021-02-20] MEDS: MEROPENEM 1GM IVPB 100 ML IV SCH ×3 (05:38→21:02)
[2021-02-20] MEDS: SUCRALFATE 1 GM/10 ML ORAL SUSP PO SCH ×4 (07:00→21:03)
[2021-02-20 08:05] VITALS: BP 126/87
[2021-02-20 08:24] LABS: Basophils # (auto) 0.1 10 ^3/uL (0-0.2); Basophils % (auto) 0.4 % (0.0-2.0); Eosinophils # (auto) 0.5 10 ^3/uL (0-0.8); Eosinophils % (auto) 3.4 % (0.0-7.0); Hematocrit 37.5 % (41.0-53.0); Hemoglobin 12.9 g/dL (13.5-17.5); Lymphocytes # (auto) 1.8 10 ^3/uL (0.4-5.4); Lymphocytes % (auto) 12.6 % (10.0-50.0); Mean Corpuscular Hgb Conc. 34.2 g/dL (32.0-36.0); Mean Corpuscular Volume 93.4 fL (80.0-100.0); Monocytes # (auto) 1.2 10 ^3/uL (0-1.3); Monocytes % (auto) 8.2 % (0.0-12.0); Neutrophils # (auto) 10.7 10 ^3/uL (1.6-8.6); Neutrophils % (auto) 75.4 % (37.0-80.0); Nucleated Red Blood Cells % 0.1 %; Platelet Count (auto) 387 10^3/uL (140-450); Red Blood Cells 4.02 10^6/uL (4.5-5.90); Red Cell Distribution Width 14.3 % (11.8-14.3); White Blood Cell 14.2 10^3/uL (4.4-10.8)
[2021-02-20 08:52] LABS: Potassium 4.2 mmol/L (3.5-5.1)
[2021-02-20 09:00] LABS: BUN/Creatinine Ratio 11.9; Calcium 9.1 mg/dL (8.5-10.1)
[2021-02-20] MEDS: PANTOPRAZOLE 40 MG/10 ML VIAL INJ IV SCH ×2 (09:32→21:03)
[2021-02-20] MEDS: levETIRAcetam 500 MG TAB PO SCH ×2 (09:34→21:03)
[2021-02-20] MEDS: GABAPENTIN 300 MG CAP PO SCH ×2 (09:34→21:03)
[2021-02-20] MEDS: DULoxetine HCL 30 MG CAP PO SCH (09:35)
[2021-02-20] MEDS: ATENOLOL 25 MG TAB PO SCH ×2 (09:36→21:16)
[2021-02-20] MEDS: LOSARTAN POTASSIUM 50 MG TAB PO SCH (09:37)
[2021-02-20] MEDS: ENOXAPARIN SOD 30 MG/0.3 ML SYRINGE SC SCH (09:37)
[2021-02-20] MEDS: NICOTINE 14 MG/24HR TOPICAL PATCH TD SCH (09:38)
[2021-02-20] MEDS: SODIUM CHLOR 0.9% PF (SALINE LOCK) 10ML VIAL/SYR IV SCH ×2 (09:39→21:03)
[2021-02-20] MEDS ORDERED: VENL37.588 PO (09:45)
[2021-02-20 12:30] VITALS: BP_SYST 124; BP_SYST 134; BP_DIAS 70; BP_DIAS 73
[2021-02-20 16:53] VITALS: BP 120/77
[2021-02-20] MEDS: LORazepam 0.5 MG TAB PO PRN (18:47)
[2021-02-20] MEDS: OLANZapine 5 MG TAB PO SCH (21:04)
[2021-02-20 22:00] VITALS: BP 117/81
[2021-02-21] MEDS: LACTATED RINGER'S 1,000 ML IV SCH (04:38)
[2021-02-21 05:00] VITALS: BP 131/82
[2021-02-21] MEDS: MEROPENEM 1GM IVPB 100 ML IV SCH ×3 (05:09→22:46)
[2021-02-21] MEDS: HYDROcodone-ACET 5/325MG TAB PO PRN ×5 (05:10→22:46)
[2021-02-21] MEDS: SUCRALFATE 1 GM/10 ML ORAL SUSP PO SCH ×4 (06:39→22:30)
[2021-02-21 09:00] VITALS: BP 119/88
[2021-02-21] MEDS: PANTOPRAZOLE 40 MG/10 ML VIAL INJ IV SCH ×2 (10:05→22:30)
[2021-02-21] MEDS: ENOXAPARIN SOD 30 MG/0.3 ML SYRINGE SC SCH (10:05)
[2021-02-21] MEDS: NICOTINE 14 MG/24HR TOPICAL PATCH TD SCH (10:06)
[2021-02-21] MEDS: LOSARTAN POTASSIUM 50 MG TAB PO SCH (10:07)
[2021-02-21] MEDS: levETIRAcetam 500 MG TAB PO SCH ×2 (10:07→22:30)
[2021-02-21] MEDS: GABAPENTIN 300 MG CAP PO SCH ×2 (10:08→22:30)
[2021-02-21] MEDS: DULoxetine HCL 30 MG CAP PO SCH (10:08)
[2021-02-21] MEDS: ATENOLOL 25 MG TAB PO SCH ×2 (10:08→22:30)
[2021-02-21] MEDS: SODIUM CHLOR 0.9% PF (SALINE LOCK) 10ML VIAL/SYR IV SCH ×2 (10:09→22:30)
[2021-02-21] MEDS ORDERED: IOHEXOL 300 MG/ML 100ML BOTTLE IJ ONE (12:25)
[2021-02-21 13:00] VITALS: BP 97/82
[2021-02-21] MEDS ORDERED: LIDOCAINE HCL 5 % TOP OINT 35 GM TOP PRN (16:30)
[2021-02-21 17:00] VITALS: BP 120/75
[2021-02-21] MEDS: ERGOCALCIFEROL 50,000 UNIT(1.25MG) CAP PO SCH (18:34)
[2021-02-21 21:50] VITALS: BP 114/82
[2021-02-21] MEDS: OLANZapine 5 MG TAB PO SCH (22:30)
[2021-02-22 05:00] VITALS: BP 120/64
[2021-02-22] MEDS: SUCRALFATE 1 GM/10 ML ORAL SUSP PO SCH ×2 (06:35→12:31)
[2021-02-22] MEDS: MEROPENEM 1GM IVPB 100 ML IV SCH (06:35)
[2021-02-22] MEDS: HYDROcodone-ACET 5/325MG TAB PO PRN (07:49)
[2021-02-22 08:47] VITALS: BP 126/73
[2021-02-22] MEDS: PANTOPRAZOLE 40 MG/10 ML VIAL INJ IV SCH (10:05)
[2021-02-22] MEDS: GABAPENTIN 300 MG CAP PO SCH (10:06)
[2021-02-22] MEDS: DULoxetine HCL 30 MG CAP PO SCH (10:06)
[2021-02-22] MEDS: LOSARTAN POTASSIUM 50 MG TAB PO SCH (10:06)
[2021-02-22] MEDS: levETIRAcetam 500 MG TAB PO SCH (10:06)
[2021-02-22] MEDS: SODIUM CHLOR 0.9% PF (SALINE LOCK) 10ML VIAL/SYR IV SCH (10:07)
[2021-02-22] MEDS: ATENOLOL 25 MG TAB PO SCH (10:07)
[2021-02-22] MEDS: ENOXAPARIN SOD 30 MG/0.3 ML SYRINGE SC SCH (10:08)
[2021-02-22] MEDS: NICOTINE 14 MG/24HR TOPICAL PATCH TD SCH (10:08)
[2021-02-22 12:38] VITALS: BP 126/77
[2021-02-22 13:14] VITALS: BP 113/81
== END 2021-02-22 14:45 | disposition home or self-care (01) | DRG 438 ==
LOC: ER 06:12 → TELE 06:13 → TELE-WESTW 16:54 → WEST WING 02-15 21:34
PROVIDERS: ADMIT Hospitalist; ATTEND Internal Medicine
PROC: 05HB33Z Insertion of Infusion Device into Right Basilic Vein, Percutaneous Approach (ICD-10-PCS; 2021-02-13)
PROC: B54MZZA Ultrasonography of Right Upper Extremity Veins, Guidance (ICD-10-PCS; 2021-02-13)
PROC: 02HV33Z Insertion of Infusion Device into Superior Vena Cava, Percutaneous Approach (ICD-10-PCS; principal; 2021-02-14)
PROC: B548ZZA Ultrasonography of Superior Vena Cava, Guidance (ICD-10-PCS; 2021-02-14)
DX: K85.91 Acute pancreatitis with uninfected necrosis, unspecified (principal); E43 Unspecified severe protein-calorie malnutrition; R65.11 Systemic inflammatory response syndrome (SIRS) of non-infectious origin with acute organ dysfunction; J44.1 Chronic obstructive pulmonary disease with (acute) exacerbation; Z68.41 Body mass index [BMI] 40.0-44.9, adult; A04.9 Bacterial intestinal infection, unspecified; K86.3 Pseudocyst of pancreas; K29.20 Alcoholic gastritis without bleeding; Z20.822 Contact with and (suspected) exposure to COVID-19; I25.41 Coronary artery aneurysm; K70.9 Alcoholic liver disease, unspecified; K76.0 Fatty (change of) liver, not elsewhere classified; F41.9 Anxiety disorder, unspecified; I13.10 Hypertensive heart and chronic kidney disease without heart failure, with stage 1 through stage 4 chronic kidney disease, or unspecified chronic kidney disease; G40.909 Epilepsy, unspecified, not intractable, without status epilepticus; E66.01 Morbid (severe) obesity due to excess calories; E88.09 Other disorders of plasma-protein metabolism, not elsewhere classified; E78.5 Hyperlipidemia, unspecified; I25.10 Atherosclerotic heart disease of native coronary artery without angina pectoris; D63.8 Anemia in other chronic diseases classified elsewhere; E55.9 Vitamin D deficiency, unspecified; F32.9 Major depressive disorder, single episode, unspecified; J44.9 Chronic obstructive pulmonary disease, unspecified; N18.9 Chronic kidney disease, unspecified; K21.9 Gastro-esophageal reflux disease without esophagitis; G89.29 Other chronic pain; R16.2 Hepatomegaly with splenomegaly, not elsewhere classified; K86.1 Other chronic pancreatitis; F17.210 Nicotine dependence, cigarettes, uncomplicated; Z81.8 Family history of other mental and behavioral disorders; Z83.49 Family history of other endocrine, nutritional and metabolic diseases; Z88.0 Allergy status to penicillin
CPT/HCPCS: 36415; 36569; 73030; 73220; 74176; 74177; 76705; 80048; 80053; 80061; 80307; 81001; 82040; 82140; 82150; 82306; 82962; 83036; 83690; 83735; 84100; 84443; 84478; 84484; 85025; 85610; 85730; 87040; 87086; 87426; 96365; 96368; 96375; 96376; C9113; G0378; J1956; J2001; J2185; J2405; J3480; J3490

== ENCOUNTER 2021-02-26 16:35 | Inpatient (IN) | payer MEDICARE, MEDICAID ==
[~2021-02-26] VITALS: Ht 182.9 cm; Wt 158.2 kg
[~2021-02-26 16:35] MED LIST changes: +GABA100C9 PO; -GABA300C10; +VENL37.588 PO
[2021-02-26 19:14] LABS: Hemoglobin 12.9 g/dL (13.5-17.5)
[2021-02-26 19:15] LABS: Basophils # (auto) 0.1 10 ^3/uL (0-0.2); Basophils % (auto) 0.8 % (0.0-2.0); Eosinophils # (auto) 0.6 10 ^3/uL (0-0.8); Hematocrit 38.5 % (41.0-53.0); Lymphocytes # (auto) 1.3 10 ^3/uL (0.4-5.4); Lymphocytes % (auto) 8.2 % (10.0-50.0); Mean Corpuscular Hemoglobin 31.4 pg (28.0-32.0); Mean Corpuscular Hgb Conc. 33.6 g/dL (32.0-36.0); Mean Corpuscular Volume 93.3 fL (80.0-100.0); Monocytes # (auto) 1.4 10 ^3/uL (0-1.3); Monocytes % (auto) 8.8 % (0.0-12.0); Neutrophils # (auto) 12.1 10 ^3/uL (1.6-8.6); Neutrophils % (auto) 78.2 % (37.0-80.0); Platelet Count (auto) 481 10^3/uL (140-450); Red Blood Cells 4.12 10^6/uL (4.5-5.90); Red Cell Distribution Width 14.8 % (11.8-14.3); White Blood Cell 15.5 10^3/uL (4.4-10.8)
[2021-02-26 19:27] LABS: Anion Gap 10 (5-15); Blood Urea Nitrogen 12 mg/dL (7-18); Carbon Dioxide 22 mmol/L (21-32); Chloride 109 mmol/L (98-107); Glucose 111 mg/dL (74-106); Potassium 3.8 mmol/L (3.5-5.1); Sodium 141 mmol/L (136-145)
[2021-02-26 19:30] LABS: INR 1.05 (0.9-1.15); Partial Thromboplastin Time 32.2 sec (23.0-31.2)
[2021-02-26 19:33] LABS: Amylase 68 U/L (25-115); Lipase 144 U/L (73-393)
[2021-02-26 19:34] LABS: Alanine Aminotransferase 46 U/L (16-61); Alkaline Phosphatase 121 U/L (45-117); Aspartate Aminotransferase 32 U/L (15-37); BUN/Creatinine Ratio 14.8; Bilirubin, Total 0.2 mg/dL (0.2-1.0); GFR African American 136 mL/min; GFR Non-African American 112 mL/min; Total Protein 7.4 g/dL (6.4-8.2)
[2021-02-26 19:38] LABS: Urine Amorphous Crystal FEW /hpf (None Seen); Urine Bacteria NONE SEEN /hpf (None Seen); Urine Blood Negative /uL (Negative); Urine Specific Gravity 1.023 (1.001-1.035); Urine WBC 11 /hpf (0 - 3); Urine WBC Clumps PRESENT /hpf (None Seen)
[2021-02-26] MEDS ORDERED: ONDANSETRON HCL 4 MG/2 ML VIAL IV ONE (21:00)
[2021-02-26] MEDS ORDERED: MORPHINE SULFATE 4 MG/ML SYR/VIAL IV ONE (21:00)
[2021-02-26] MEDS ORDERED: IOHEXOL 350 MG/ML 100ML IJ ONE (21:28)
[2021-02-27] VITALS (8 sets, daily range): BP systolic 120–160; BP diastolic 75–97
[2021-02-27] MEDS ORDERED: ACETAMINOPHEN 325 MG TAB PO PRN (01:30)
[2021-02-27] MEDS ORDERED: ONDANSETRON HCL 4 MG/2 ML VIAL IV PRN (01:30)
[2021-02-27] MEDS ORDERED: MORPHINE SULF INJ 2 MG/ML SYRINGE 1ML IV PRN (01:30)
[2021-02-27] MEDS ORDERED: NITROGLYCERIN 0.4 MG SL TAB SL PRN (01:30)
[2021-02-27] MEDS ORDERED: DOCUSATE SOD 100 MG CAP PO PRN (01:30)
[2021-02-27] MEDS ORDERED: hydrALAZINE HCL 20 MG/ML VL IV PRN (01:45)
[2021-02-27] MEDS ORDERED: VANCOMYCIN 1GM/250ML 250 ML IV ONE (02:00)
[2021-02-27] MEDS: IPRATROPIUM BROM 0.5 MG/2.5ML INH SOL NEB PRN ×4 (02:10→23:05)
[2021-02-27] MEDS: ALBUTEROL SULF 2.5 MG/0.5ML(0.5%) NEB SOLN NEB PRN ×4 (02:10→23:05)
[2021-02-27] MEDS: methylPREDNISolone SOD SUCC 40 MG/ML VL IV SCH ×2 (02:15→10:21)
[2021-02-27] MEDS ORDERED: levETIRAcetam 500 MG/5ML INJ IV ONE (04:28)
[2021-02-27] MEDS: MORPHINE SULFATE 4 MG/ML SYR/VIAL IV PRN ×4 (05:38→20:51)
[2021-02-27] MEDS: SODIUM CHLOR 0.9% PF (SALINE LOCK) 10ML VIAL/SYR IV SCH ×3 (05:43→22:06)
[2021-02-27 08:38] LABS: Basophils # (auto) 0 10 ^3/uL (0-0.2); Basophils % (auto) 0.3 % (0.0-2.0); Eosinophils # (auto) 0 10 ^3/uL (0-0.8); Eosinophils % (auto) 0.3 % (0.0-7.0); Hematocrit 39.2 % (41.0-53.0); Hemoglobin 13.1 g/dL (13.5-17.5); Lymphocytes # (auto) 0.7 10 ^3/uL (0.4-5.4); Lymphocytes % (auto) 5.3 % (10.0-50.0); Mean Corpuscular Hemoglobin 31.1 pg (28.0-32.0); Mean Corpuscular Hgb Conc. 33.3 g/dL (32.0-36.0); Mean Corpuscular Volume 93.3 fL (80.0-100.0); Monocytes # (auto) 0.2 10 ^3/uL (0-1.3); Monocytes % (auto) 1.8 % (0.0-12.0); Neutrophils # (auto) 11.7 10 ^3/uL (1.6-8.6); Neutrophils % (auto) 92.3 % (37.0-80.0); Platelet Count (auto) 441 10^3/uL (140-450); Red Cell Distribution Width 14.6 % (11.8-14.3); White Blood Cell 12.7 10^3/uL (4.4-10.8)
[2021-02-27 09:00] LABS: Albumin 3.3 g/dL (3.4-5.0); BUN/Creatinine Ratio 13.6; Calcium 8.8 mg/dL (8.5-10.1); Potassium 3.9 mmol/L (3.5-5.1)
[2021-02-27 09:03] LABS: Bilirubin, Total 0.2 mg/dL (0.2-1.0)
[2021-02-27] MEDS ORDERED: VANCOMYCIN 1GM/250ML 250 ML IV SCH (10:00)
[2021-02-27] MEDS ORDERED: ENOXAPARIN SOD 80 MG/0.8ML SYRINGE SC SCH (10:00)
[2021-02-27] MEDS: FAMOTIDINE (10MG/ML) 2ML VL IV SCH ×2 (10:21→22:06)
[2021-02-27] MEDS: ZINC SULFATE 220mg CAP or TAB PO SCH (10:22)
[2021-02-27] MEDS: MULTIPLE VITAMIN TAB PO SCH (10:22)
[2021-02-27] MEDS: ASCORBIC ACID 500 MG TAB PO SCH ×2 (10:22→22:07)
[2021-02-27] MEDS: ATENOLOL 25 MG TAB PO SCH ×2 (10:23→22:07)
[2021-02-27] MEDS ORDERED: OMEP20TA PO ×2 (11:48→11:50)
[2021-02-27] MEDS ORDERED: GABA-339 PO (11:48)
[2021-02-27] MEDS ORDERED: VANCOMYCIN PER PHARMACY 0 MG IV SCH (12:15)
[2021-02-27] MEDS ORDERED: GABAPENTIN 300 MG CAP PO ONE (12:15)
[2021-02-27] MEDS ORDERED: ERGOCALCIFEROL 50,000 UNIT(1.25MG) CAP PO SCH (12:15)
[2021-02-27] MEDS ORDERED: DULoxetine HCL 30 MG CAP PO ONE (12:15)
[2021-02-27] MEDS: MEROPENEM 1GM IVPB 100 ML IV SCH ×2 (13:14→22:05)
[2021-02-27] MEDS ORDERED: MEROPENEM 1GM IVPB 100 ML IV SCH (14:00)
[2021-02-27] MEDS: VANCOMYCIN 1GM/250ML 250 ML IV SCH (18:24)
[2021-02-27] MEDS: GABAPENTIN 300 MG CAP PO SCH (22:06)
[2021-02-27] MEDS: HYDROcodone-ACET 5/325MG TAB PO PRN (22:15)
[2021-02-28] MEDS: VANCOMYCIN 1GM/250ML 250 ML IV SCH ×3 (01:59→17:52)
[2021-02-28] MEDS: MORPHINE SULFATE 4 MG/ML SYR/VIAL IV PRN ×4 (02:07→17:26)
[2021-02-28] MEDS: IPRATROPIUM BROM 0.5 MG/2.5ML INH SOL NEB PRN ×4 (02:44→22:39)
[2021-02-28] MEDS: ALBUTEROL SULF 2.5 MG/0.5ML(0.5%) NEB SOLN NEB PRN ×4 (02:44→22:39)
[2021-02-28] MEDS: HYDROcodone-ACET 5/325MG TAB PO PRN ×3 (04:28→20:17)
[2021-02-28 05:00] VITALS: BP 112/70
[2021-02-28] MEDS: MEROPENEM 1GM IVPB 100 ML IV SCH ×3 (06:12→23:51)
[2021-02-28] MEDS: SODIUM CHLOR 0.9% PF (SALINE LOCK) 10ML VIAL/SYR IV SCH ×3 (06:12→23:51)
[2021-02-28 06:28] LABS: Basophils # (auto) 0.1 10 ^3/uL (0-0.2); Basophils % (auto) 0.7 % (0.0-2.0); Eosinophils # (auto) 0 10 ^3/uL (0-0.8); Eosinophils % (auto) 0.3 % (0.0-7.0); Hematocrit 36.3 % (41.0-53.0); Hemoglobin 12.3 g/dL (13.5-17.5); Lymphocytes # (auto) 1.7 10 ^3/uL (0.4-5.4); Lymphocytes % (auto) 13.4 % (10.0-50.0); Mean Corpuscular Hemoglobin 31.7 pg (28.0-32.0); Mean Corpuscular Volume 93.2 fL (80.0-100.0); Monocytes # (auto) 1.4 10 ^3/uL (0-1.3); Monocytes % (auto) 11.4 % (0.0-12.0); Neutrophils # (auto) 9.2 10 ^3/uL (1.6-8.6); Neutrophils % (auto) 74.2 % (37.0-80.0); Nucleated Red Blood Cells % 0.1 %; Platelet Count (auto) 388 10^3/uL (140-450); Red Blood Cells 3.89 10^6/uL (4.5-5.90); Red Cell Distribution Width 14.7 % (11.8-14.3); White Blood Cell 12.4 10^3/uL (4.4-10.8)
[2021-02-28 06:44] LABS: Calcium 9.2 mg/dL (8.5-10.1); Potassium 3.5 mmol/L (3.5-5.1)
[2021-02-28 06:48] LABS: BUN/Creatinine Ratio 14.3; Bilirubin, Total 0.2 mg/dL (0.2-1.0); Total Protein 7.4 g/dL (6.4-8.2)
[2021-02-28 08:00] VITALS: BP 131/89
[2021-02-28 09:21] LABS: Basophils # (auto) 0 10 ^3/uL (0-0.2); Basophils % (auto) 0.4 % (0.0-2.0); Eosinophils # (auto) 0.1 10 ^3/uL (0-0.8); Eosinophils % (auto) 0.6 % (0.0-7.0); Mean Corpuscular Hgb Conc. 33.9 g/dL (32.0-36.0); Monocytes # (auto) 0.9 10 ^3/uL (0-1.3); Neutrophils # (auto) 8.6 10 ^3/uL (1.6-8.6); Red Blood Cells 4.13 10^6/uL (4.5-5.90); Red Cell Distribution Width 14.7 % (11.8-14.3)
[2021-02-28 09:23] LABS: Hematocrit 38.1 % (41.0-53.0); Hemoglobin 12.9 g/dL (13.5-17.5); Lymphocytes # (auto) 1.9 10 ^3/uL (0.4-5.4); Lymphocytes % (auto) 16.1 % (10.0-50.0); Mean Corpuscular Hemoglobin 31.2 pg (28.0-32.0); Mean Corpuscular Volume 92.2 fL (80.0-100.0); Monocytes % (auto) 8.2 % (0.0-12.0); Neutrophils % (auto) 74.7 % (37.0-80.0); Nucleated Red Blood Cells % 0.1 %; Platelet Count (auto) 446 10^3/uL (140-450); White Blood Cell 11.5 10^3/uL (4.4-10.8)
[2021-02-28 09:39] LABS: Albumin 3.1 g/dL (3.4-5.0); Calcium 9.4 mg/dL (8.5-10.1); Potassium 3.3 mmol/L (3.5-5.1)
[2021-02-28 09:44] LABS: Bilirubin, Total 0.2 mg/dL (0.2-1.0); Total Protein 7.5 g/dL (6.4-8.2)
[2021-02-28] MEDS ORDERED: ENOXAPARIN SOD 40 MG/0.4 ML SYRINGE SC SCH (10:00)
[2021-02-28] MEDS: FAMOTIDINE (10MG/ML) 2ML VL IV SCH (10:20)
[2021-02-28] MEDS: ZINC SULFATE 220mg CAP or TAB PO SCH (10:20)
[2021-02-28] MEDS: MULTIPLE VITAMIN TAB PO SCH (10:20)
[2021-02-28] MEDS: DULoxetine HCL 30 MG CAP PO SCH (10:20)
[2021-02-28] MEDS: GABAPENTIN 300 MG CAP PO SCH (10:21)
[2021-02-28] MEDS: ATENOLOL 25 MG TAB PO SCH ×2 (10:21→23:53)
[2021-02-28] MEDS: ASCORBIC ACID 500 MG TAB PO SCH ×2 (10:22→23:52)
[2021-02-28] MEDS ORDERED: POTASSIUM CHL 20 Meq TABLET PO ONE (10:30)
[2021-02-28] MEDS ORDERED: PANTOPRAZOLE 40 MG TAB PO ONE (11:00)
[2021-02-28 13:00] VITALS: BP 143/95
[2021-02-28] MEDS ORDERED: LORazepam 2MG/ML-1ML VIAL IV PRN (13:15)
[2021-02-28] MEDS: GABAPENTIN 400 MG CAP PO SCH ×2 (13:17→23:52)
[2021-02-28 17:00] VITALS: BP 136/95
[2021-02-28 22:00] VITALS: BP 115/75
[2021-03-01] MEDS: VANCOMYCIN 1GM/250ML 250 ML IV SCH ×2 (02:20→10:21)
[2021-03-01] MEDS: IPRATROPIUM BROM 0.5 MG/2.5ML INH SOL NEB PRN ×3 (02:30→14:10)
[2021-03-01] MEDS: ALBUTEROL SULF 2.5 MG/0.5ML(0.5%) NEB SOLN NEB PRN ×3 (02:30→14:10)
[2021-03-01 05:00] VITALS: BP 141/74
[2021-03-01] MEDS ORDERED: ENOXAPARIN SOD 100 MG/1 ML SYRINGE SC SCH (06:00)
[2021-03-01] MEDS: MEROPENEM 1GM IVPB 100 ML IV SCH ×2 (06:11→14:00)
[2021-03-01] MEDS: SODIUM CHLOR 0.9% PF (SALINE LOCK) 10ML VIAL/SYR IV SCH ×2 (06:11→14:00)
[2021-03-01] MEDS: GABAPENTIN 400 MG CAP PO SCH ×2 (06:12→14:23)
[2021-03-01] MEDS: PANTOPRAZOLE 40 MG TAB PO SCH ×2 (06:13→10:22)
[2021-03-01] MEDS: HYDROcodone-ACET 5/325MG TAB PO PRN ×2 (06:53→12:30)
[2021-03-01] MEDS: MORPHINE SULFATE 4 MG/ML SYR/VIAL IV PRN (08:44)
[2021-03-01 08:52] VITALS: BP 114/81
[2021-03-01] MEDS ORDERED: ENOXAPARIN SOD 150 MG/1 ML SYRINGE SC SCH ×2 (10:00→22:00)
[2021-03-01] MEDS: ZINC SULFATE 220mg CAP or TAB PO SCH (10:22)
[2021-03-01] MEDS: MULTIPLE VITAMIN TAB PO SCH (10:23)
[2021-03-01] MEDS: DULoxetine HCL 30 MG CAP PO SCH (10:24)
[2021-03-01] MEDS: ASCORBIC ACID 500 MG TAB PO SCH (10:24)
[2021-03-01] MEDS: ATENOLOL 25 MG TAB PO SCH (10:25)
[2021-03-01 14:33] VITALS: BP 128/92
[2021-03-01 16:21] VITALS: BP 114/81
[2021-03-01 17:07] VITALS: BP 119/72
== END 2021-03-01 17:07 | disposition home or self-care (01) | DRG 300 ==
LOC: ER 16:35 → TELE 02-27 01:20 → TELE-EAST 02-27 03:04 → EAST 02-27 11:41
PROVIDERS: ADMIT Nurse Practitioner Family; ATTEND Internal Medicine
DX: I82.621 Acute embolism and thrombosis of deep veins of right upper extremity (principal); J44.0 Chronic obstructive pulmonary disease with (acute) lower respiratory infection; K86.1 Other chronic pancreatitis; E44.0 Moderate protein-calorie malnutrition; Z68.42 Body mass index [BMI] 45.0-49.9, adult; R65.10 Systemic inflammatory response syndrome (SIRS) of non-infectious origin without acute organ dysfunction; J20.9 Acute bronchitis, unspecified; Z20.822 Contact with and (suspected) exposure to COVID-19; G89.29 Other chronic pain; E66.01 Morbid (severe) obesity due to excess calories; I25.10 Atherosclerotic heart disease of native coronary artery without angina pectoris; E55.9 Vitamin D deficiency, unspecified; E78.5 Hyperlipidemia, unspecified; I25.41 Coronary artery aneurysm; F17.210 Nicotine dependence, cigarettes, uncomplicated; I11.0 Hypertensive heart disease with heart failure; E07.9 Disorder of thyroid, unspecified; I50.9 Heart failure, unspecified; F41.9 Anxiety disorder, unspecified; K70.9 Alcoholic liver disease, unspecified; M54.5 Low back pain; R79.89 Other specified abnormal findings of blood chemistry; Z81.8 Family history of other mental and behavioral disorders; Z83.49 Family history of other endocrine, nutritional and metabolic diseases; Z82.49 Family history of ischemic heart disease and other diseases of the circulatory system; Z88.0 Allergy status to penicillin; Z79.899 Other long term (current) drug therapy; Z71.6 Tobacco abuse counseling
CPT/HCPCS: 36415; 71045; 71275; 80053; 80202; 81001; 82150; 82728; 83605; 83690; 83880; 84484; 85025; 85379; 85610; 85730; 87040; 87070; 87081; 87205; 87426; 93970; 94640; 96365; G0378; J2185; J2405; J3490; J7060